=== PATIENT | male | born 1935 | race Caucasian/White ===

== ENCOUNTER 2018-05-28 11:27 | Emergency (ER) | payer OTHER, SELFPAY ==
[2018-05-28] VITALS (16 sets, daily range): BP systolic 90–169; BP diastolic 60–104; PULSE 72–110; RESP 15–22; TEMP 36.5; O2SAT 88–98; BMI 29.5
[2018-05-28 12:21] LABS: Add Manual Diff / Slide Review NO; Basophils Percent Auto 0.2 % (0-2); Eosinophils Percent Auto 0.1 % (2-4); Hemoglobin 14.4 g/dL (13.5-17.5); Lymphocytes Percent Auto 21.1 % (25-40); Mean Corpuscular HGB Conc 35.2 % (30-36); Mean Corpuscular Volume 79.6 fL (80-100); Neutrophils Absolute Auto 5000 /uL (3000-5900); Neutrophils Percent Auto 54.4 % (50-75); Platelet Count 165 X10^3/uL (150-400); Red Blood Cell Count 5.15 X10^6/uL (4.5-5.9); Red Cell Distribution Width 14.7 % (11.6-14.8); White Blood Cell Count 9.1 X10^3/uL (4.5-11.0)
[2018-05-28 12:24] LABS: Monocytes Percent Auto 24.2 % (3-14)
[2018-05-28] MEDS: PANTOPRAZOLE 40 MG VIAL IV (12:27)
[2018-05-28] MEDS: ONDANSETRON 4 MG/2 ML INJ IV (12:27)
[2018-05-28 12:28] LABS: INR 1.2 (0.9-1.3); Prothrombin Time 12.8 SECONDS (10.1-12.7)
[2018-05-28 12:31] LABS: PTT Partial Thromboplastin Tim 27 SECONDS (26.4-36.2)
[2018-05-28 12:32] LABS: Lactate (Lactic Acid) 2.4 mmol/L (0.7-2.1)
[2018-05-28 12:33] LABS: Alanine Aminotransferase 18 IU/L (21-72); Albumin 4.7 g/dL (3.5-5.0); Albumin Globulin Ratio 1.6 (1.0-2.8); Alkaline Phosphatase 52 U/L (38-126); Aspartate Aminotransferase 16 IU/L (17-59); Bilirubin Total 2.2 mg/dL (0.2-1.3); Blood Urea Nitrogen 35 mg/dL (9-20); Calcium 9.7 mg/dL (8.4-10.2); Carbon Dioxide 24 mmol/L (22-32); Chloride 107 mmol/L (98-107); Estimated Glomerular Filt Rate > 60.0 mL/min (>60); Glucose 111 mg/dL (80-110); HEMOLYSIS < 15 (0-50); Lipase 51 U/L (23-300); Sodium 148 mmol/L (137-145); Total Protein 7.7 g/dL (6.3-8.2)
--- NOTE | 2018-05-28 12:58 | ED.GIBLEED ---
HPI - GI Bleed General Chief complaint: GI Bleed Stated complaint: stomach issues Time Seen by Provider: 05/28/18 11:58 Source: patient Mode of arrival: ambulatory Limitations: no limitations History of Present Illness HPI Narrative: PATIENT IS A 82-YEAR-OLD MALE WHO PRESENTS WITH 2 EPISODES BLACK VOMITING. IT HAPPENED THIS MORNING. HE SAID HE THREW UP TWICE FOR ABOUT 30 MIN HE DID HAVE MULTIPLE EPISODES OF BLACK STOOL WELL. I SLIGHTLY TACHYCARDIC NO ABDOMINAL PAIN NO DIZZINESS LIGHTHEADEDNESS OR SHORTNESS OF BREATH. HE DOES TAKE AN ASPIRIN 81 MG DAILY. NO HISTORY OF GI BLEED. MD complaint: coffee ground emesis Related Data Home Medications Medication Instructions Recorded Confirmed aspirin 325 mg PO QPM 05/28/18 05/28/18 [id number] 1 tab PO PRN PRN 05/28/18 05/28/18 [Migraine Relief] atorvastatin 10 mg PO QPM 05/28/18 05/28/18 calcium carbonate [Tums] 200 mg PO PRN PRN 05/28/18 05/28/18 fluorouracil 1 applic TOPICAL [id number] 05/28/18 05/28/18 Allergies Allergy/AdvReac Type Severity Reaction Status Date / Time morphine AdvReac Verified 05/28/18 11:38 Review of Systems Review of Systems GENERAL: Denies chills, fatigue, malaise, fever, sweats, travel HEENT: Denies sinus pain, ear pain, sore throat, difficulty swallowing, neck pain RESPIRATORY: Denies dyspnea, cough, wheezing, hemoptysis, sputum. CARDIOVASCULAR: Denies chest pain, palpitations, orthopnea, edema GASTROINTESTINAL: See HPI : Denies dysuria, frequency, incontinence, hematuria, urinary retention, flank pain. MUSCULOSKELETAL: Denies weakness, joint pain, or bony pain SKIN: No rash, no erythema, no pruritus NEUROLOGIC: Denies weakness, dizziness, headache, numbness, change in speech, confusion PSYCHIATRIC: No concerning psychosocial issues. 12 point review of systems is negative except for those stated above and HPI [facility] Medical History Hyperlipidemia (Acute) Social History Smoking Status: Never smoker Exam Initial Vital Signs Initial Vital Signs: Vital Signs Temperature 97.7 F 05/28/18 11:38 Pulse Rate 102 H 11/26/18 11:38 Respiratory Rate 22 05/28/18 11:38 Blood Pressure 129/84 05/28/18 11:38 Pulse Oximetry 92 05/28/18 11:38 GENERAL: Well-appearing alert making jokes HEENT: Head atraumatic,EOMI, pupils reactive CARDIOVASCULAR: Regular rate and rhythm without murmurs, rubs or gallops. RESPIRATORY: Breath sounds equal bilaterally, no wheezes rales or rhonchi. ABDOMEN: Soft, nontender. Normoactive bowel sounds all 4 quadrants. No guarding or rebound. RECTAL: Black stool guaiac positive EXTREMITIES: Normal range of motion, no clubbing or edema. Neurovascularly intact NEUROLOGICAL: Alert and oriented x4.Normal gait and speech. Cranial nerves II through XII grossly intact. SKIN: Warm, dry, no laceration, no petechiae, no rashes or lesions. Course Orders Ordered: ED Orders 05/28/18 11:58 EKG-12 Lead Stat 05/28/18 12:10 Complete Blood Count AUTO DIFF Stat Comprehensive Metabolic Panel Stat Lactate (Lactic Acid) Stat Lipase Stat Partial Thromboplastin Time Stat Prothrombin Time INR Stat Type and Screen Stat 05/28/18 15:40 Urine Culture Stat Urine Microscopic Stat 05/28/18 15:43 Hemoglobin and Hematocrit Stat Lactate (Lactic Acid) Stat 05/28/18 17:04 EKG-12 Lead Stat Pantoprazole Sodium 80 mg/ (Sodium Chloride) 100 mls @ 10 mls/hr IV CONT YARY Last Infusion: 05/28/18 18:14 Dose: 8 mg/hr, 10 mls/hr Admin: 05/28/18 13:13 Dose: 8 mg/hr, 10 mls/hr Sodium Chloride (Normal Saline 0.9%) 1,000 mls @ 125 mls/hr IV CONT YARY Last Infusion: 05/28/18 18:14 Dose: 125 mls/hr Admin: 05/28/18 15:10 Dose: 125 mls/hr Discontinued Medications Hydromorphone HCl (Dilaudid) 0.5 mg IV NOW ONE Stop: 05/28/18 15:08 Last Admin: 05/28/18 15:11 Dose: 0.5 mg Hydromorphone HCl (Dilaudid) 0.5 mg IV NOW ONE Stop: 05/28/18 18:08 Last Admin: 11/26/18 18:07 Dose: 0.5 mg Ondansetron HCl (Zofran) 4 mg IV NOW ONE Stop: 05/28/18 11:59 Last Admin: 05/28/18 12:27 Dose: 4 mg Pantoprazole Sodium (Protonix) 40 mg IV NOW ONE Stop: 05/28/18 12:15 Last Admin: 05/28/18 12:27 Dose: 40 mg Vital Signs - 8 hr 05/28/18 11:38 05/28/18 12:30 05/28/18 13:00 Temperature 97.7 F Pulse Rate 102 H 98 H 107 H Respiratory Rate 22 17 18 Blood Pressure 129/84 Blood Pressure [Left Arm] 134/73 90/77 Pulse Oximetry 92 95 05/28/18 13:15 05/28/18 13:19 05/28/18 14:26 Temperature Pulse Rate 100 H 89 108 H Respiratory Rate 17 17 16 Blood Pressure Blood Pressure [Left Arm] 150/104 H 169/99 H 124/60 Pulse Oximetry 90 L 92 05/28/18 14:45 05/28/18 15:00 05/28/18 15:15 Temperature Pulse Rate 106 H 96 H 110 H Respiratory Rate 18 18 Blood Pressure Blood Pressure [Left Arm] 119/96 H 110/83 110/83 Pulse Oximetry 95 95 95 05/28/18 15:30 05/28/18 15:45 05/28/18 16:00 Temperature Pulse Rate 81 80 79 Respiratory Rate 18 15 Blood Pressure Blood Pressure [Left Arm] 140/81 124/80 125/73 Pulse Oximetry 95 95 95 05/28/18 16:30 05/28/18 16:53 05/28/18 16:57 Temperature Pulse Rate 80 72 Respiratory Rate 18 18 20 Blood Pressure Blood Pressure [Left Arm] 131/75 148/77 H Pulse Oximetry 94 92 94 05/28/18 17:40 Temperature Pulse Rate 84 Respiratory Rate 20 Blood Pressure Blood Pressure [Left Arm] 136/78 Pulse Oximetry 98 MDM - GI Bleed Lab Data Attestation: I reviewed the patient's lab results. Result diagrams: 05/28/18 15:43 05/28/18 12:10 Lab Results 05/28/18 05/28/18 05/28/18 Range/Units 12:10 12:10 12:10 WBC 9.1 (4.5-11.0) X10^3/uL RBC 5.15 (4.5-5.9) X10^6/uL Hgb 14.4 (13.5-17.5) g/dL Hct 41.0 (41-53) % MCV 79.6 L (80-100) fL MCH 28.0 (26-34) PG MCHC 35.2 (30-36) % RDW 14.7 (11.6-14.8) % Plt Count 165 (150-400) X10^3/uL Neut % (Auto) 54.4 (50-75) % Lymph % (Auto) 21.1 L (25-40) % [place] % (Auto) 24.2 H (3-14) % Eos % (Auto) 0.1 L (2-4) % Baso % (Auto) 0.2 (0-2) % Neut # (Auto) 5000 (0572-3808) /uL PT 12.8 H (10.1-12.7) SECONDS INR 1.2 (0.9-1.3) APTT 27 (26.4-36.2) SECONDS Sodium 148 H (137-145) mmol/L Potassium 4.0 (3.4-5.1) mmol/L Chloride 107 (98-107) mmol/L Carbon Dioxide 24 (22-32) mmol/L BUN 35 H (9-20) mg/dL Creatinine 1.00 (0.66-1.25) mg/dL Estimated GFR > 60.0 (>60) mL/min BUN/Creatinine Ratio 35.0 H (6-22) Glucose 111 H (80-110) mg/dL Lactate (0.7-2.1) mmol/L Calcium 9.7 (8.4-10.2) mg/dL Total Bilirubin 2.2 H (0.2-1.3) mg/dL AST 16 L (17-59) IU/L ALT 18 L (21-72) IU/L Alkaline Phosphatase 52 (38-126) U/L Total Protein 7.7 (6.3-8.2) g/dL Albumin 4.7 (3.5-5.0) g/dL Globulin 3.0 (1.7-4.1) g/dL Albumin/Globulin Ratio 1.6 (1.0-2.8) Lipase 51 (23-300) U/L Urine RBC (0-5/HPF) Urine WBC (0-5/HPF) Ur Squamous Epith Cells Urine Bacteria (None) Ur Culture Indicated? Micro UA Comment Blood Type Antibody Screen 05/28/18 05/28/18 05/28/18 Range/Units 12:10 12:10 15:40 WBC (4.5-11.0) X10^3/uL RBC (4.5-5.9) X10^6/uL Hgb (13.5-17.5) g/dL Hct (41-53) % MCV (80-100) fL MCH (26-34) PG MCHC (30-36) % RDW (11.6-14.8) % Plt Count (150-400) X10^3/uL Neut % (Auto) (50-75) % Lymph % (Auto) (25-40) % [place] % (Auto) (3-14) % Eos % (Auto) (2-4) % Baso % (Auto) (0-2) % Neut # (Auto) (8365-8126) /uL PT (10.1-12.7) SECONDS INR (0.9-1.3) APTT (26.4-36.2) SECONDS Sodium (137-145) mmol/L Potassium (3.4-5.1) mmol/L Chloride (98-107) mmol/L Carbon Dioxide (22-32) mmol/L BUN (9-20) mg/dL Creatinine (0.66-1.25) mg/dL Estimated GFR (>60) mL/min BUN/Creatinine Ratio (6-22) Glucose (80-110) mg/dL Lactate 2.4 H (0.7-2.1) mmol/L Calcium (8.4-10.2) mg/dL Total Bilirubin (0.2-1.3) mg/dL AST (17-59) IU/L ALT (21-72) IU/L Alkaline Phosphatase (38-126) U/L Total Protein (6.3-8.2) g/dL Albumin (3.5-5.0) g/dL Globulin (1.7-4.1) g/dL Albumin/Globulin Ratio (1.0-2.8) Lipase (23-300) U/L Urine RBC 0-1/hpf (0-5/HPF) Urine WBC 10-30/hpf H (0-5/HPF) Ur Squamous Epith Cells 1-5 /hpf Urine Bacteria Few (2-10) H (None) Ur Culture Indicated? Specimen cultured Micro UA Comment Not Reportable Blood Type B Positive Antibody Screen Negative 05/28/18 05/28/18 Range/Units 15:43 15:43 WBC (4.5-11.0) X10^3/uL RBC (4.5-5.9) X10^6/uL Hgb 13.8 (13.5-17.5) g/dL Hct 39.7 L (41-53) % MCV (80-100) fL MCH (26-34) PG MCHC (30-36) % RDW (11.6-14.8) % Plt Count (150-400) X10^3/uL Neut % (Auto) (50-75) % Lymph % (Auto) (25-40) % [place] % (Auto) (3-14) % Eos % (Auto) (2-4) % Baso % (Auto) (0-2) % Neut # (Auto) (1803-8081) /uL PT (10.1-12.7) SECONDS INR (0.9-1.3) APTT (26.4-36.2) SECONDS Sodium (137-145) mmol/L Potassium (3.4-5.1) mmol/L Chloride (98-107) mmol/L Carbon Dioxide (22-32) mmol/L BUN (9-20) mg/dL Creatinine (0.66-1.25) mg/dL Estimated GFR (>60) mL/min BUN/Creatinine Ratio (6-22) Glucose (80-110) mg/dL Lactate 2.9 H (0.7-2.1) mmol/L Calcium (8.4-10.2) mg/dL Total Bilirubin (0.2-1.3) mg/dL AST (17-59) IU/L ALT (21-72) IU/L Alkaline Phosphatase (38-126) U/L Total Protein (6.3-8.2) g/dL Albumin (3.5-5.0) g/dL Globulin (1.7-4.1) g/dL Albumin/Globulin Ratio (1.0-2.8) Lipase (23-300) U/L Urine RBC (0-5/HPF) Urine WBC (0-5/HPF) Ur Squamous Epith Cells Urine Bacteria (None) Ur Culture Indicated? Micro UA Comment Blood Type Antibody Screen Urine Dip Bedside Urine Glucose Negative Bedside Urine Bilirubin - Negative Bedside Urine Ketone - Negative Urine Specific [place] 1.015 Bedside Urine Occult Blood - Negative Bedside Urine pH 6.0 Bedside Urine Protein +/- 15 Bedside Urine Urobilinogen - Negative Bedside Urine Nitrite - Negative Bedside Urine Leukocytes ++ 125 Esterase ECG Data Attestation: I personally reviewed and interpreted this ECG as follows: MDM Narrative Medical decision making narrative: Patient has had no further episodes of GI bleeding while in the emergency department. He is getting quite restless stating that his lower back which is chronic ongoing problem for him is starting to hurt in the emergency room gurney. He is sitting up nurse feels that he is diaphoretic. His heart rate has increased he is now complaining of headache. His abdomen remained soft. He is given some Dilaudid to help with back pain and headache. Heart rate improved able to lay back down. He overall feeling a little bit better. I did discuss with [place] doctor montes who recommends patient go [facility] or [facility] I spoke with GI doctor at [facility] who request IV fluids. Dr. Funez internal medicine doctor who happily accepts patient for transfer. Repeat blood work shows very minimal a drop in hemoglobin and hematocrit. Slightly increase in lactic acid IV fluids have just been started. Patient laying down uncomfortable due to his back. He has had chronic ongoing back pain for a number of years. Dilaudid does seem to help. His heart rate has also improved since his pain is better. Is a his abdomen is reexamined and remains. Discharge Plan Departure Patient Disposition: Xfer Acute [facility] Prescriptions: No Action atorvastatin 10 mg Tablet 10 mg PO QPM RF: 0 aspirin 325 mg Tablet 325 mg PO QPM RF: 0 fluorouracil 5 % Cream 1 applic TOPICAL [id number] RF: 0 calcium carbonate [Tums] 200 mg calcium (500 mg) Tablet,Chewable 200 mg PO PRN PRN (Reason: Indigestion) RF: 0 [id number] [Migraine Relief] 250-250-65 mg Tablet 1 tab PO PRN PRN (Reason: Migraine Headache) RF: 0
--- NOTE | 2018-05-28 13:07 | ED_ITS ---
HPI - GI Bleed General Chief complaint: GI Bleed Stated complaint: stomach issues Time Seen by Provider: 05/28/18 11:58 Source: patient Mode of arrival: ambulatory Limitations: no limitations History of Present Illness HPI Narrative: PATIENT IS A 82-YEAR-OLD MALE WHO PRESENTS WITH 2 EPISODES BLACK VOMITING. IT HAPPENED THIS MORNING. HE SAID HE THREW UP TWICE FOR ABOUT 30 MIN HE DID HAVE MULTIPLE EPISODES OF BLACK STOOL WELL. I SLIGHTLY TACHYCARDIC NO ABDOMINAL PAIN NO DIZZINESS LIGHTHEADEDNESS OR SHORTNESS OF BREATH. HE DOES TAKE AN ASPIRIN 81 MG DAILY. NO HISTORY OF GI BLEED. MD complaint: coffee ground emesis Related Data Home Medications Medication Instructions Recorded Confirmed aspirin 325 mg PO QPM 05/28/18 05/28/18 [id number]-[id number] 1 tab PO PRN PRN 05/28/18 05/28/18 [Migraine Relief] atorvastatin 10 mg PO QPM 05/28/18 05/28/18 calcium carbonate [Tums] 200 mg PO PRN PRN 05/28/18 05/28/18 fluorouracil 1 applic TOPICAL [id number] 05/28/18 05/28/18 Allergies Allergy/AdvReac Type Severity Reaction Status Date / Time morphine AdvReac Verified 05/28/18 11:38 Review of Systems Review of Systems GENERAL: Denies chills, fatigue, malaise, fever, sweats, travel HEENT: Denies sinus pain, ear pain, sore throat, difficulty swallowing, neck pain RESPIRATORY: Denies dyspnea, cough, wheezing, hemoptysis, sputum. CARDIOVASCULAR: Denies chest pain, palpitations, orthopnea, edema GASTROINTESTINAL: See HPI : Denies dysuria, frequency, incontinence, hematuria, urinary retention, flank pain. MUSCULOSKELETAL: Denies weakness, joint pain, or bony pain SKIN: No rash, no erythema, no pruritus NEUROLOGIC: Denies weakness, dizziness, headache, numbness, change in speech, confusion PSYCHIATRIC: No concerning psychosocial issues. 12 point review of systems is negative except for those stated above and HPI [facility] Medical History Hyperlipidemia (Acute) Social History Smoking Status: Never smoker Exam Initial Vital Signs Initial Vital Signs: Vital Signs Temperature 97.7 F 05/28/18 11:38 Pulse Rate 102 H 11/26/18 11:38 Respiratory Rate 22 05/28/18 11:38 Blood Pressure 129/84 05/28/18 11:38 Pulse Oximetry 92 05/28/18 11:38 GENERAL: Well-appearing alert making jokes HEENT: Head atraumatic,EOMI, pupils reactive CARDIOVASCULAR: Regular rate and rhythm without murmurs, rubs or gallops. RESPIRATORY: Breath sounds equal bilaterally, no wheezes rales or rhonchi. ABDOMEN: Soft, nontender. Normoactive bowel sounds all 4 quadrants. No guarding or rebound. RECTAL: Black stool guaiac positive EXTREMITIES: Normal range of motion, no clubbing or edema. Neurovascularly intact NEUROLOGICAL: Alert and oriented x4.Normal gait and speech. Cranial nerves II through XII grossly intact. SKIN: Warm, dry, no laceration, no petechiae, no rashes or lesions. Course Orders Ordered: ED Orders 05/28/18 11:58 EKG-12 Lead Stat 05/28/18 12:10 Complete Blood Count AUTO DIFF Stat Comprehensive Metabolic Panel Stat Lactate (Lactic Acid) Stat Lipase Stat Partial Thromboplastin Time Stat Prothrombin Time INR Stat Type and Screen Stat 05/28/18 15:40 Urine Culture Stat Urine Microscopic Stat 05/28/18 15:43 Hemoglobin and Hematocrit Stat Lactate (Lactic Acid) Stat 05/28/18 17:04 EKG-12 Lead Stat Pantoprazole Sodium 80 mg/ (Sodium Chloride) 100 mls @ 10 mls/hr IV CONT YARY Last Infusion: 05/28/18 18:14 Dose: 8 mg/hr, 10 mls/hr Admin: 05/28/18 13:13 Dose: 8 mg/hr, 10 mls/hr Sodium Chloride (Normal Saline 0.9%) 1,000 mls @ 125 mls/hr IV CONT YARY Last Infusion: 05/28/18 18:14 Dose: 125 mls/hr Admin: 05/28/18 15:10 Dose: 125 mls/hr Discontinued Medications Hydromorphone HCl (Dilaudid) 0.5 mg IV NOW ONE Stop: 05/28/18 15:08 Last Admin: 05/28/18 15:11 Dose: 0.5 mg Hydromorphone HCl (Dilaudid) 0.5 mg IV NOW ONE Stop: 05/28/18 18:08 Last Admin: 11/26/18 18:07 Dose: 0.5 mg Ondansetron HCl (Zofran) 4 mg IV NOW ONE Stop: 05/28/18 11:59 Last Admin: 05/28/18 12:27 Dose: 4 mg Pantoprazole Sodium (Protonix) 40 mg IV NOW ONE Stop: 05/28/18 12:15 Last Admin: 05/28/18 12:27 Dose: 40 mg Vital Signs - 8 hr 05/28/18 11:38 05/28/18 12:30 05/28/18 13:00 Temperature 97.7 F Pulse Rate 102 H 98 H 107 H Respiratory Rate 22 17 18 Blood Pressure 129/84 Blood Pressure [Left Arm] 134/73 90/77 Pulse Oximetry 92 95 05/28/18 13:15 05/28/18 13:19 05/28/18 14:26 Temperature Pulse Rate 100 H 89 108 H Respiratory Rate 17 17 16 Blood Pressure Blood Pressure [Left Arm] 150/104 H 169/99 H 124/60 Pulse Oximetry 90 L 92 05/28/18 14:45 05/28/18 15:00 05/28/18 15:15 Temperature Pulse Rate 106 H 96 H 110 H Respiratory Rate 18 18 Blood Pressure Blood Pressure [Left Arm] 119/96 H 110/83 110/83 Pulse Oximetry 95 95 95 05/28/18 15:30 05/28/18 15:45 05/28/18 16:00 Temperature Pulse Rate 81 80 79 Respiratory Rate 18 15 Blood Pressure Blood Pressure [Left Arm] 140/81 124/80 125/73 Pulse Oximetry 95 95 95 05/28/18 16:30 05/28/18 16:53 05/28/18 16:57 Temperature Pulse Rate 80 72 Respiratory Rate 18 18 20 Blood Pressure Blood Pressure [Left Arm] 131/75 148/77 H Pulse Oximetry 94 92 94 05/28/18 17:40 Temperature Pulse Rate 84 Respiratory Rate 20 Blood Pressure Blood Pressure [Left Arm] 136/78 Pulse Oximetry 98 MDM - GI Bleed Lab Data Attestation: I reviewed the patient's lab results. Result diagrams: 05/28/18 15:43 05/28/18 12:10 Lab Results 05/28/18 05/28/18 05/28/18 Range/Units 12:10 12:10 12:10 WBC 9.1 (4.5-11.0) X10^3/uL RBC 5.15 (4.5-5.9) X10^6/uL Hgb 14.4 (13.5-17.5) g/dL Hct 41.0 (41-53) % MCV 79.6 L (80-100) fL MCH 28.0 (26-34) PG MCHC 35.2 (30-36) % RDW 14.7 (11.6-14.8) % Plt Count 165 (150-400) X10^3/uL Neut % (Auto) 54.4 (50-75) % Lymph % (Auto) 21.1 L (25-40) % [place] % (Auto) 24.2 H (3-14) % Eos % (Auto) 0.1 L (2-4) % Baso % (Auto) 0.2 (0-2) % Neut # (Auto) 5000 (7275-7634) /uL PT 12.8 H (10.1-12.7) SECONDS INR 1.2 (0.9-1.3) APTT 27 (26.4-36.2) SECONDS Sodium 148 H (137-145) mmol/L Potassium 4.0 (3.4-5.1) mmol/L Chloride 107 (98-107) mmol/L Carbon Dioxide 24 (22-32) mmol/L BUN 35 H (9-20) mg/dL Creatinine 1.00 (0.66-1.25) mg/dL Estimated GFR > 60.0 (>60) mL/min BUN/Creatinine Ratio 35.0 H (6-22) Glucose 111 H (80-110) mg/dL Lactate (0.7-2.1) mmol/L Calcium 9.7 (8.4-10.2) mg/dL Total Bilirubin 2.2 H (0.2-1.3) mg/dL AST 16 L (17-59) IU/L ALT 18 L (21-72) IU/L Alkaline Phosphatase 52 (38-126) U/L Total Protein 7.7 (6.3-8.2) g/dL Albumin 4.7 (3.5-5.0) g/dL Globulin 3.0 (1.7-4.1) g/dL Albumin/Globulin Ratio 1.6 (1.0-2.8) Lipase 51 (23-300) U/L Urine RBC (0-5/HPF) Urine WBC (0-5/HPF) Ur Squamous Epith Cells Urine Bacteria (None) Ur Culture Indicated? Micro UA Comment Blood Type Antibody Screen 05/28/18 05/28/18 05/28/18 Range/Units 12:10 12:10 15:40 WBC (4.5-11.0) X10^3/uL RBC (4.5-5.9) X10^6/uL Hgb (13.5-17.5) g/dL Hct (41-53) % MCV (80-100) fL MCH (26-34) PG MCHC (30-36) % RDW (11.6-14.8) % Plt Count (150-400) X10^3/uL Neut % (Auto) (50-75) % Lymph % (Auto) (25-40) % [place] % (Auto) (3-14) % Eos % (Auto) (2-4) % Baso % (Auto) (0-2) % Neut # (Auto) (9048-0238) /uL PT (10.1-12.7) SECONDS INR (0.9-1.3) APTT (26.4-36.2) SECONDS Sodium (137-145) mmol/L Potassium (3.4-5.1) mmol/L Chloride (98-107) mmol/L Carbon Dioxide (22-32) mmol/L BUN (9-20) mg/dL Creatinine (0.66-1.25) mg/dL Estimated GFR (>60) mL/min BUN/Creatinine Ratio (6-22) Glucose (80-110) mg/dL Lactate 2.4 H (0.7-2.1) mmol/L Calcium (8.4-10.2) mg/dL Total Bilirubin (0.2-1.3) mg/dL AST (17-59) IU/L ALT (21-72) IU/L Alkaline Phosphatase (38-126) U/L Total Protein (6.3-8.2) g/dL Albumin (3.5-5.0) g/dL Globulin (1.7-4.1) g/dL Albumin/Globulin Ratio (1.0-2.8) Lipase (23-300) U/L Urine RBC 0-1/hpf (0-5/HPF) Urine WBC 10-30/hpf H (0-5/HPF) Ur Squamous Epith Cells 1-5 /hpf Urine Bacteria Few (2-10) H (None) Ur Culture Indicated? Specimen cultured Micro UA Comment Not Reportable Blood Type B Positive Antibody Screen Negative 05/28/18 05/28/18 Range/Units 15:43 15:43 WBC (4.5-11.0) X10^3/uL RBC (4.5-5.9) X10^6/uL Hgb 13.8 (13.5-17.5) g/dL Hct 39.7 L (41-53) % MCV (80-100) fL MCH (26-34) PG MCHC (30-36) % RDW (11.6-14.8) % Plt Count (150-400) X10^3/uL Neut % (Auto) (50-75) % Lymph % (Auto) (25-40) % [place] % (Auto) (3-14) % Eos % (Auto) (2-4) % Baso % (Auto) (0-2) % Neut # (Auto) (2496-3626) /uL PT (10.1-12.7) SECONDS INR (0.9-1.3) APTT (26.4-36.2) SECONDS Sodium (137-145) mmol/L Potassium (3.4-5.1) mmol/L Chloride (98-107) mmol/L Carbon Dioxide (22-32) mmol/L BUN (9-20) mg/dL Creatinine (0.66-1.25) mg/dL Estimated GFR (>60) mL/min BUN/Creatinine Ratio (6-22) Glucose (80-110) mg/dL Lactate 2.9 H (0.7-2.1) mmol/L Calcium (8.4-10.2) mg/dL Total Bilirubin (0.2-1.3) mg/dL AST (17-59) IU/L ALT (21-72) IU/L Alkaline Phosphatase (38-126) U/L Total Protein (6.3-8.2) g/dL Albumin (3.5-5.0) g/dL Globulin (1.7-4.1) g/dL Albumin/Globulin Ratio (1.0-2.8) Lipase (23-300) U/L Urine RBC (0-5/HPF) Urine WBC (0-5/HPF) Ur Squamous Epith Cells Urine Bacteria (None) Ur Culture Indicated? Micro UA Comment Blood Type Antibody Screen Urine Dip Bedside Urine Glucose Negative Bedside Urine Bilirubin - Negative Bedside Urine Ketone - Negative Urine Specific [place] 1.015 Bedside Urine Occult Blood - Negative Bedside Urine pH 6.0 Bedside Urine Protein +/- 15 Bedside Urine Urobilinogen - Negative Bedside Urine Nitrite - Negative Bedside Urine Leukocytes ++ 125 Esterase ECG Data Attestation: I personally reviewed and interpreted this ECG as follows: MDM Narrative Medical decision making narrative: Patient has had no further episodes of GI bleeding while in the emergency department. He is getting quite restless stating that his lower back which is chronic ongoing problem for him is starting to hurt in the emergency room gurney. He is sitting up nurse feels that he is diaphoretic. His heart rate has increased he is now complaining of headache. His abdomen remained soft. He is given some Dilaudid to help with back pain and headache. Heart rate improved able to lay back down. He overall feeling a little bit better. I did discuss with [place] doctor montes who recommends patient go [facility] or [facility] I spoke with GI doctor at [facility] who request IV fluids. Dr. Funez internal medicine doctor who happily accepts patient for transfer. Repeat blood work shows very minimal a drop in hemoglobin and hematocrit. Slightly increase in lactic acid IV fluids have just been started. Patient laying down uncomfortable due to his back. He has had chronic ongoing back pain for a number of years. Dilaudid does seem to help. His heart rate has also improved since his pain is better. Is a his abdomen is reexamined and remains. Discharge Plan Departure Patient Disposition: Xfer Acute [facility] Prescriptions: No Action atorvastatin 10 mg Tablet 10 mg PO QPM RF: 0 aspirin 325 mg Tablet 325 mg PO QPM RF: 0 fluorouracil 5 % Cream 1 applic TOPICAL [id number] RF: 0 calcium carbonate [Tums] 200 mg calcium (500 mg) Tablet,Chewable 200 mg PO PRN PRN (Reason: Indigestion) RF: 0 [id number]-tehpcicaukhbe-[id number] [Migraine Relief] 250-250-65 mg Tablet 1 tab PO PRN PRN (Reason: Migraine Headache) RF: 0
[2018-05-28] MEDS: PANTOPRAZOLE 80 MG in SODIUM CHLORIDE 0.9% 100 ML 10 ML IV (13:13)
[2018-05-28] MEDS: SODIUM CHLORIDE 0.9% 1,000 ML 125 ML IV (15:10)
[2018-05-28] MEDS: HYDROMORPHONE 1 MG INJ 0.5 MG IV ×2 (15:11→18:07)
--- NOTE | 2018-05-28 15:22 | PC.NURSE ---
Pt w/ noted increased HR to 118. No hypotension. C/O dizzyness. + Migraine. Medicated w/ dilaudid 0.5 mg IVP. NS started at 125 cc/ hour. MD in to evaluate. Ice pack to head for comfort.
[2018-05-28 15:48] LABS: Hematocrit 39.7 % (41-53); Hemoglobin 13.8 g/dL (13.5-17.5)
[2018-05-28 16:00] LABS: Lactate (Lactic Acid) 2.9 mmol/L (0.7-2.1)
[2018-05-28 16:17] LABS: Reflexed Lactate in 2 Hours Y
[2018-05-28 16:18] LABS: Bacteria Urine Few (2-10); Culture Indicated Urine Specimen Cultured; RBC Urine 0-1/HPF (0-5/HPF); Squamous Epithelial Cell Urine 1-5 /HPF; WBC Urine 10-30/HPF (0-5/HPF)
--- NOTE | 2018-05-28 17:04 | PC.NURSE ---
Pt guac positive rectally per Dr. Whitley.
--- NOTE | 2018-05-28 17:04 | PC.NURSE ---
Pt's heart rate decreased to 70s w/ multi focal PVCs noted. Repeat EKG obtained. Dr. Whitley in to re-evaluate as pt is now more diaphoretic, c/o increased pain in back and requiring oxygen for keep sat > 93%.
--- NOTE | 2018-05-28 17:18 | PC.NURSE ---
Pt noted to be sleeping, have apnea spell, sat dropped to 84%, oxygen 4l nc restarted.
[2018-05-28 19:47] LABS: Reflexed Lactate in 2 Hours Y
== END 2018-05-28 19:09 | disposition short-term general hospital (02) ==
PROVIDERS: Emergency Provider Emergency Medicine
DX: K92.2 Gastrointestinal hemorrhage, unspecified (principal)
CPT/HCPCS: 36415; 36591; 80053; 81003; 81015; 83605; 83690; 85014; 85018; 85025; 85610; 85730; 86850; 86900; 86901; 87086; 93005; 96365; 96366; 96375; 96376; 99285; C9113; J1170; J2405

== ENCOUNTER → 2018-08-01 08:47 | Outpatient (CLI) | payer OTHER, SELFPAY ==
[2018-08-01 09:41] LABS: Cholesterol 78 mg/dL (140-199); HDL Cholesterol 33 mg/dL (40-60); LDL Cholesterol Calculated 32 mg/dL (<100); Triglycerides 63 mg/dL (35-150)
== END ==
DX: E78.5 Hyperlipidemia, unspecified (principal)
CPT/HCPCS: 36415; 80061

== ENCOUNTER 2019-03-07 13:59 | Emergency (ER) | payer OTHER, SELFPAY ==
[2019-03-07 14:08] VITALS: BP 188/79; PULSE 72; RESP 18; TEMP 36.9; O2SAT 97; BMI 28.2
--- NOTE | 2019-03-07 14:30 | ED_ITS ---
HPI - Syncope <CARMINA Hernandez - Last Filed: 03/07/19 21:14> General Chief Complaint: Syncope Stated Complaint: Fell and hit head won't stop bleeding, dizzy Time Seen by Provider: 03/07/19 14:15 Source: patient Mode of arrival: ambulatory Limitations: no limitations History of Present Illness HPI narrative: 83-year-old male with a history of high blood pressure, hypertension, and brainstem stroke 2 years ago, presents emergency department today complaining of hitting his head yesterday after passing out. He states that was sitting on the toilet and felt dizzy and ?goofy ?the next thing he remembers he was waking up on the floor. His states he hit his forehead on the sink and found him on the floor. He placed gauze and a bandage on the area and was not evaluated yesterday. Today he stated that he went to take gives cap off in the bleeding and occurred again, so he presented to the emergency department for control of bleeding of his laceration. He denies any symptoms at this time. He also states he has not been taking his high blood pressure medication case he states his ?poison?. Patient denies headaches, change in vision, dizziness, chest pain, shortness of breath, fevers, cough, weakness, abdominal pain, vomiting, diarrhea, constipation, dysuria, or leg weakness. Patient also states that he is taking aspirin but denies any other blood thinners. Additionally he reports a cervical neck pain and a small laceration to his right elbow without pain. He denies hip pain, shoulder pain, elbow pain, knee pain, foot pain. A modified trauma was called. Related Data Home Medications Medication Instructions Recorded Confirmed aspirin 325 mg PO QPM 05/28/18 05/28/18 [id number] 1 tab PO PRN PRN 05/28/18 05/28/18 [Migraine Relief] atorvastatin 10 mg PO QPM 05/28/18 05/28/18 calcium carbonate [Tums] 200 mg PO PRN PRN 05/28/18 05/28/18 fluorouracil 1 applic TOPICAL [id number] 05/28/18 05/28/18 Allergies Allergy/AdvReac Type Severity Reaction Status Date / Time morphine AdvReac Verified 03/07/19 14:14 Review of Systems <CARMINA Hernandez - Last Filed: 03/07/19 21:14> Review of Systems Narrative: REVIEW OF SYSTEMS: GENERAL: Denies fever, chills, malaise, or wt. loss. HENT: Complains of head trauma, see HPI. Denies hearing loss, rhinorrhea, epistaxis, sinus pressure, sore throat, or dysphagia. EYES: No loss of vision, double vision, eye pain, or irritation. CARDIOVASCULAR: No chest pain, palpitations, edema, syncope, or orthopnea. RESPIRATORY: No shortness of breath, cough, or wheeze. GASTROINTESTINAL: No change in appetite, nausea, vomiting, stool changes, or melena. GENITOURINARY: No flank pain, urinary incontinence, hesitancy, frequency, or dysuria. MUSCULOSKELETAL: No pain, weakness, or deformities. INTEGUMENTARY: Complains of head laceration, see HPI. NEURO: Complains of syncope, see HPI. No numbness, tingling, memory loss, confusion, or headaches. PSYCH: No behavior or mood changes. LYMPHATIC: No lymphadenopathy. PFSH <CARMINA Hernandez - Last Filed: 03/07/19 21:14> Medical History CVA (cerebral vascular accident) (Acute) Hyperlipidemia (Acute) Social History Smoking Status: Never smoker Social History Smoking Status: Never smoker Exam <CARMINA Hernandez - Last Filed: 03/07/19 21:14> Initial Vital Signs Initial Vital Signs: Vital Signs Temperature 98.4 F 03/07/19 14:08 Pulse Rate 72 03/07/19 14:08 Respiratory Rate 18 03/07/19 14:08 Blood Pressure 188/79 H 03/07/19 14:08 Pulse Oximetry 97 03/07/19 14:08 PHYSICAL EXAMINATION: GENERAL: Well groomed, alert, and cooperative. Answers questions promptly and appropriately. Vital signs noted. HENT: 8 cm x 6 cm hematoma noted to forehead with a 4cm x 3cm significant abrasion bleeding controlled since last night with gauze (clots present in the area, no surrounding erythema, wound bed irrigated with normal saline). Ear canals patent, Oral mucosa is pink and moist, no caries or lesions present. Pharynx without erythema. EYES: PERRLA, EOMIs, conjunctiva pink, sclera white, no periorbital swelling. NECK: Slight tenderness to cervical spine upon palpation no bruising or step- offs noted. CHEST: Normal to inspection and without deformities. CARDIOVASCULAR: S1 and S2 sounds normal. Regular rate and rhythm, no murmurs, clicks, or bruits. No pedal edema. RESPIRATORY: Normal respiratory rate, trachea midline, airway patent. No stridor, nasal flaring or accessory muscle use. Lungs are clear in all gallegos without wheeze, rhonchi, or crackles. GASTROINTESTINAL: Bowel sounds normoactive. Abdomen is soft and non-tender. No organomegaly. MUSCULOSKELETAL: Normal gait and coordination. Equal tone and mass bilaterally. No thoracic or lumbar spinal tenderness or deformities. EXTREMITIES: CMS intact. Full range of motion and 5/5 strength to upper and lower extremities. 2cm abrasion noted to right elbow, bleeding controlled. SKIN: Warm, dry, soft, appropriate color for ethnicity. NEURO: Alert and Oriented X 3. CN III-XII intact. Good coordination. No ataxia, or sensory deficits, or cognitive issues. NIH Score of 0. PSYCH: Appropriate affect and mood. <Laurita Luevano DO - Last Filed: 03/08/19 08:06> Initial Vital Signs Initial Vital Signs: Vital Signs Temperature 98.4 F 03/07/19 14:08 Pulse Rate 72 03/07/19 14:08 Respiratory Rate 18 03/07/19 14:08 Blood Pressure 188/79 H 03/07/19 14:08 Pulse Oximetry 97 03/07/19 14:08 Course <CARMINA Hernandez - Last Filed: 03/07/19 21:14> Course Course Narrative: Initially patient did not complain of any neck tenderness in triage per nurses, however on exam he complained of cervical neck tenderness palpation. A C-collar was placed on patient and cervical and head CT scans were ordered. After obtained on unremarkable labs and negative CT scans, patient stated he wants to go home and does not want to be further evaluated. His wound was cleansed with normal saline and it appeared to be abraded, there is nothing to suture or staple, clots performed within the wound very minimal bleeding occurred during irrigation. Orders Ordered: Discontinued Medications Bacitracin (Bacitracin) 1 applic TOP NOW ONE Stop: 03/07/19 15:52 Last Admin: 03/07/19 16:08 Dose: 1 applic Documented by: BTONER Sodium Chloride (Normal Saline 0.9%) 1,000 mls @ 1,000 mls/hr IV BOLUS ONE Stop: 03/07/19 15:27 Last Admin: 03/07/19 15:25 Dose: Not Given Documented by: DARLENE Neomycin/Polymyxin/Bacitracin (Neosporin) 1 each TOP NOW ONE Stop: 03/07/19 15:50 Last Admin: 03/07/19 16:23 Dose: Not Given Documented by: DARLENE Consultations Consultation #1: Patient was staffed with Dr. Luevano. Vital Signs Vital signs: Vital Signs - 8 hr 03/07/19 14:08 03/07/19 15:58 Temperature 98.4 F Pulse Rate 72 68 Respiratory Rate 18 24 Blood Pressure 188/79 H Blood Pressure [Left Arm] 172/98 H Pulse Oximetry 97 100 <Laurita Luevano DO - Last Filed: 03/08/19 08:06> Orders Ordered: Discontinued Medications Bacitracin (Bacitracin) 1 applic TOP NOW ONE Stop: 03/07/19 15:52 Last Admin: 03/07/19 16:08 Dose: 1 applic Documented by: BTONER Sodium Chloride (Normal Saline 0.9%) 1,000 mls @ 1,000 mls/hr IV BOLUS ONE Stop: 03/07/19 15:27 Last Admin: 03/07/19 15:25 Dose: Not Given Documented by: DARLENE Neomycin/Polymyxin/Bacitracin (Neosporin) 1 each TOP NOW ONE Stop: 03/07/19 15:50 Last Admin: 03/07/19 16:23 Dose: Not Given Documented by: DARLENE Vital Signs Vital signs: Vital Signs - 8 hr 03/07/19 14:08 03/07/19 15:58 Temperature 98.4 F Pulse Rate 72 68 Respiratory Rate 18 24 Blood Pressure 188/79 H Blood Pressure [Left Arm] 172/98 H Pulse Oximetry 97 100 MDM - Syncope <CARMINA Hernandez - Last Filed: 03/07/19 21:14> Medical Records Attestation: I reviewed the patient's medical records. Lab Data Attestation: I reviewed the patient's lab results. Result diagrams: 03/07/19 14:20 03/07/19 14:20 Labs: Lab Results 03/07/19 03/07/19 03/07/19 Range/Units 14:20 14:20 14:20 WBC 6.3 (4.5-11.0) X10^3/uL RBC 5.22 (4.5-5.9) X10^6/uL Hgb 14.7 (13.5-17.5) g/dL Hct 41.7 (41-53) % MCV 79.8 L (80-100) fL MCH 28.2 (26-34) PG MCHC 35.3 (30-36) % RDW 14.1 (11.6-14.8) % Plt Count 125 L (150-400) X10^3/uL Neut % (Auto) Not Reportable Lymph % (Auto) Not Reportable [place] % (Auto) Not Reportable Eos % (Auto) Not Reportable Baso % (Auto) Not Reportable Lymph # (Auto) Not Reportable [place] # (Auto) Not Reportable Baso # (Auto) Not Reportable Total Counted 100 Seg Neutrophils % 44.0 (38-70) % Lymphocytes % (Manual) 28.0 (25-45) % Monocytes % (Manual) 26.0 H (2-11) % Eosinophils % (Manual) 1.0 L (2-4) % Basophils % (Manual) 1.0 (0-1) % Neutrophils # (Manual) 2772 L (1240-4730) /uL RBC Morphology Normal morphology PT 12.6 (10.1-12.7) SECONDS INR 1.1 (0.9-1.3) Sodium 141 (137-145) mmol/L Potassium 3.7 (3.4-5.1) mmol/L Chloride 105 (98-107) mmol/L Carbon Dioxide 25 (22-32) mmol/L BUN 11 (9-20) mg/dL Creatinine 1.10 (0.66-1.25) mg/dL Estimated GFR > 60.0 (>60) mL/min BUN/Creatinine Ratio 10.0 (6-22) Glucose 108 (80-110) mg/dL Calcium 9.4 (8.4-10.2) mg/dL Total Bilirubin 1.5 H (0.2-1.3) mg/dL AST 17 (17-59) IU/L ALT 12 L (21-72) IU/L Alkaline Phosphatase 63 (38-126) U/L Total Creatine Kinase 33 L (55-170) U/L CK-MB (CK-2) TNP CK-MB (CK-2) Rel Index TNP Troponin I < 0.012 (0.01-0.034) ng/mL Total Protein 7.4 (6.3-8.2) g/dL Albumin 4.4 (3.5-5.0) g/dL Globulin 3.0 (1.7-4.1) g/dL Albumin/Globulin Ratio 1.5 (1.0-2.8) Imaging Data Head CT: Radiologist's impression: [address] [address] [address] Scan Report Signed Patient: Jayy Beckman KMR#: [id number] : 8Acct:[id number] Age/Sex: 83 / MDate of Service: 03/07/19 Loc: ED Accession Number: [id number] Procedure: CT head/brain wo con Ordering Provider: Tali Olivera PROCEDURE: CT HEAD/BRAIN WO CON INDICATIONS: syncope, head lac TECHNIQUE: Noncontrast 4.5 mm thick angled axial sections acquired from the foramen magnum to the vertex, with coronal and sagittal reformats. For radiation dose reduction, the following was used: automated exposure control, adjustment of mA and/or kV according to patient size. COMPARISON: [facility], CT, CT BRAIN WO CON, 01/12/2017, 13:18. FINDINGS: Image quality: Excellent. CSF spaces: Basal cisterns are patent. No extra-axial fluid collections. The ventricles are symmetric in size and shape. Brain: No intracranial bleeds or masses. There is cerebral volume loss for age, with resultant ventricular and sulcal prominence. There are periventricular and deep white matter chronic small vessel ischemic changes. There is intracranial internal carotid artery and vertebral artery atherosclerosis. Skull and face: Calvarium and visualized facial bones appear intact, without suspicious lesions. Frontal scalp laceration noted. Sinuses: Visualized sinuses and mastoids are clear. IMPRESSION: No acute intracranial disease process. Dictated by: Lia Maciel MD, PhD on 03/07/2019 at 14:42 Approved by: Lia Maciel MD, PhD on 03/07/2019 at 14:[address]: Radiologist's impression: [address] [address] [address] Scan Report Signed Patient: Jayy Beckman KMR#: [id number] : 8Acct:[id number] Age/Sex: 83 / MDate of Service: 03/07/19 Loc: ED Accession Number: [id number] Procedure: CT cervical spine wo con Ordering Provider: Tali Olivera PROCEDURE: CT CERVICAL SPINE WO CON INDICATIONS: neck pain post syncope and head injury TECHNIQUE: Noncontrast 3 mm thick sections acquired from the skull base to the T4 level. Sagittal and coronal reformats were then constructed. For radiation dose reduction, the following was used: automated exposure control, adjustment of mA and/or kV according to patient size. COMPARISON: None. FINDINGS: Image quality: Excellent. Bones: No fractures or dislocations there is moderately severe degenerative disc disease from C4-C7. No traumatic subluxation is seen, facet degeneration is mild in severity over these areas.. Visualized superior ribs are intact. Soft tissues: Prevertebral soft tissues are normal in thickness. No paravertebral hematomas. No apical pneumothoraces. IMPRESSION: Moderately severe degenerative disc disease from C4-C7 but facet osteoarthritis appears quite mild through these areas in contrast. No fracture or traumatic subluxation is seen. Dictated by: Rachid Ramirez M.D. on 03/07/2019 at 14:51 Approved by: Rachid Ramirez M.D. on 03/07/2019 at 14:52 ECG Data Interpretation: Sinus rhythm with first-degree AV block, 1 PVC noted. Rate 74, MT interval 251, QTC 406. No ST elevation or ST depression, no T-wave them normally. EKG was also viewed by Dr. Luevano. [facility] Narrative Medical decision making narrative: Differential includes vagal episode (patient was sitting on the toilet as occurred, patient reports he has a few episodes of syncope due to his past stroke), cardiac etiology (less likely due to unremarkable EKG, negative troponins, lack of symptoms such as chest pain), CVA (less likely due to lack of symptoms, NIH score of 0, negative CT). Patient refused further workup or admission and stated he wanted to go home. Laceration was not able to be sutured or stapled, wound was irrigated extensively with normal saline, bandage was applied. Strict return precautions given and follow- up instructions discussed. <Laurita Tila Luevano, DO - Last Filed: 03/08/19 08:06> Lab Data Labs: Lab Results 03/07/19 03/07/19 03/07/19 Range/Units 14:20 14:20 14:20 WBC 6.3 (4.5-11.0) X10^3/uL RBC 5.22 (4.5-5.9) X10^6/uL Hgb 14.7 (13.5-17.5) g/dL Hct 41.7 (41-53) % MCV 79.8 L (80-100) fL MCH 28.2 (26-34) PG MCHC 35.3 (30-36) % RDW 14.1 (11.6-14.8) % Plt Count 125 L (150-400) X10^3/uL Neut % (Auto) Not Reportable Lymph % (Auto) Not Reportable [place] % (Auto) Not Reportable Eos % (Auto) Not Reportable Baso % (Auto) Not Reportable Lymph # (Auto) Not Reportable [place] # (Auto) Not Reportable Baso # (Auto) Not Reportable Total Counted 100 Seg Neutrophils % 44.0 (38-70) % Lymphocytes % (Manual) 28.0 (25-45) % Monocytes % (Manual) 26.0 H (2-11) % Eosinophils % (Manual) 1.0 L (2-4) % Basophils % (Manual) 1.0 (0-1) % Neutrophils # (Manual) 2772 L (9732-6262) /uL RBC Morphology Normal morphology PT 12.6 (10.1-12.7) SECONDS INR 1.1 (0.9-1.3) Sodium 141 (137-145) mmol/L Potassium 3.7 (3.4-5.1) mmol/L Chloride 105 (98-107) mmol/L Carbon Dioxide 25 (22-32) mmol/L BUN 11 (9-20) mg/dL Creatinine 1.10 (0.66-1.25) mg/dL Estimated GFR > 60.0 (>60) mL/min BUN/Creatinine Ratio 10.0 (6-22) Glucose 108 (80-110) mg/dL Calcium 9.4 (8.4-10.2) mg/dL Total Bilirubin 1.5 H (0.2-1.3) mg/dL AST 17 (17-59) IU/L ALT 12 L (21-72) IU/L Alkaline Phosphatase 63 (38-126) U/L Total Creatine Kinase 33 L (55-170) U/L CK-MB (CK-2) TNP CK-MB (CK-2) Rel Index TNP Troponin I < 0.012 (0.01-0.034) ng/mL Total Protein 7.4 (6.3-8.2) g/dL Albumin 4.4 (3.5-5.0) g/dL Globulin 3.0 (1.7-4.1) g/dL Albumin/Globulin Ratio 1.5 (1.0-2.8) MDM Narrative Medical decision making narrative: Case staffed with myself, work up for syncope is negative. Patient imaging does not show acute change. Patient laceration is 24 hours old and not able to be closed second to swelling/location. Discharge Plan Departure Patient Disposition: Home Clinical Impression: Closed head injury Qualifiers: Encounter type: initial encounter Qualified Code(s): S09.90XA - Unspecified injury of head, initial encounter Abrasion head Qualifiers: Encounter type: initial encounter Qualified Code(s): S00.91XA - Abrasion of unspecified part of head, initial encounter Discharge Date/Time: 03/07/19 16:24 Instructions: DI for Syncope in Adults (Fainting) Activity Restrictions/Additional Instructions: Thank you for entrusting me with your care today. As discussed, your lab work was negative for any concerning findings, your head CT and neck CT were negative for fractures. Your wound was dressed with a special dressing, please leave this in place for 48 hours. After that, you may clean the area which and freely with soap and water and apply bacitracin or Neosporin. Follow up with your primary care provider in the next few days. Return to the emergency department if he develops chest pain, fevers, shortness of breath, syncope, headaches, dizziness, or confusion. Prescriptions: No Action atorvastatin 10 mg Tablet 10 mg PO QPM RF: 0 aspirin 325 mg Tablet 325 mg PO QPM RF: 0 fluorouracil 5 % Cream 1 applic TOPICAL [id number] RF: 0 calcium carbonate [Tums] 200 mg calcium (500 mg) Tablet,Chewable 200 mg PO PRN PRN (Reason: Indigestion) RF: 0 [id number]-[id number] [Migraine Relief] 250-250-65 mg Tablet 1 tab PO PRN PRN (Reason: Migraine Headache) RF: 0 Referrals: Natalia Light [Primary Care Provider] -
--- NOTE | 2019-03-07 14:37 | DI.CT.S_ITS ---
PROCEDURE: CT HEAD/BRAIN WO CON INDICATIONS: syncope, head lac TECHNIQUE: Noncontrast 4.5 mm thick angled axial sections acquired from the foramen magnum to the vertex, with coronal and sagittal reformats. For radiation dose reduction, the following was used: automated exposure control, adjustment of mA and/or kV according to patient size. COMPARISON: [facility], CT, CT BRAIN WO CON, 01/12/2017, 13:18. FINDINGS: Image quality: Excellent. CSF spaces: Basal cisterns are patent. No extra-axial fluid collections. The ventricles are symmetric in size and shape. Brain: No intracranial bleeds or masses. There is cerebral volume loss for age, with resultant ventricular and sulcal prominence. There are periventricular and deep white matter chronic small vessel ischemic changes. There is intracranial internal carotid artery and vertebral artery atherosclerosis. Skull and face: Calvarium and visualized facial bones appear intact, without suspicious lesions. Frontal scalp laceration noted. Sinuses: Visualized sinuses and mastoids are clear. IMPRESSION: No acute intracranial disease process. Dictated by: Lia Maciel MD, PhD on 03/07/2019 at 14:42 Approved by: Lia Maciel MD, PhD on 03/07/2019 at 14:56
--- NOTE | 2019-03-07 14:37 | DI.CT.S_ITS ---
PROCEDURE: CT CERVICAL SPINE WO CON INDICATIONS: neck pain post syncope and head injury TECHNIQUE: Noncontrast 3 mm thick sections acquired from the skull base to the T4 level. Sagittal and coronal reformats were then constructed. For radiation dose reduction, the following was used: automated exposure control, adjustment of mA and/or kV according to patient size. COMPARISON: None. FINDINGS: Image quality: Excellent. Bones: No fractures or dislocations there is moderately severe degenerative disc disease from C4-C7. No traumatic subluxation is seen, facet degeneration is mild in severity over these areas.. Visualized superior ribs are intact. Soft tissues: Prevertebral soft tissues are normal in thickness. No paravertebral hematomas. No apical pneumothoraces. IMPRESSION: Moderately severe degenerative disc disease from C4-C7 but facet osteoarthritis appears quite mild through these areas in contrast. No fracture or traumatic subluxation is seen. Dictated by: Rachid Ramirez M.D. on 03/07/2019 at 14:51 Approved by: Rachid Ramirez M.D. on 03/07/2019 at 14:52
[2019-03-07 14:40] LABS: Hematocrit 41.7 % (41-53); Hemoglobin 14.7 g/dL (13.5-17.5); INR 1.1 (0.9-1.3); Mean Corpuscular HGB Conc 35.3 % (30-36); Mean Corpuscular Hemoglobin 28.2 PG (26-34); Mean Corpuscular Volume 79.8 fL (80-100); Platelet Count 125 X10^3/uL (150-400); Prothrombin Time 12.6 SECONDS (10.1-12.7); Red Blood Cell Count 5.22 X10^6/uL (4.5-5.9); Red Cell Distribution Width 14.1 % (11.6-14.8); White Blood Cell Count 6.3 X10^3/uL (4.5-11.0)
[2019-03-07 14:43] LABS: Add Manual Diff / Slide Review YES
[2019-03-07 14:44] LABS: Alanine Aminotransferase 12 IU/L (21-72); Albumin 4.4 g/dL (3.5-5.0); Albumin Globulin Ratio 1.5 (1.0-2.8); Alkaline Phosphatase 63 U/L (38-126); Aspartate Aminotransferase 17 IU/L (17-59); Bilirubin Total 1.5 mg/dL (0.2-1.3); Blood Urea Nitrogen 11 mg/dL (9-20); Calcium 9.4 mg/dL (8.4-10.2); Carbon Dioxide 25 mmol/L (22-32); Chloride 105 mmol/L (98-107); Creatine Kinase 33 U/L (55-170); Estimated Glomerular Filt Rate > 60.0 mL/min (>60); Glucose 108 mg/dL (80-110); HEMOLYSIS < 15 (0-50); Potassium 3.7 mmol/L (3.4-5.1); Sodium 141 mmol/L (137-145); Total Protein 7.4 g/dL (6.3-8.2)
[2019-03-07 14:56] LABS: Troponin I < 0.012 ng/mL (0.01-0.034)
[2019-03-07 15:01] LABS: Neutrophils Absolute Manual 2772 /uL (3000-5900); RBC Morphology Normal Morphology; Total Cells Counted 100
--- NOTE | 2019-03-07 15:30 | PC.NURSE ---
1510 c collar removed. emotional support to patient. pt is not happy being in the hospital. refusing IVF. states he has rights and is not happy with the ER. emotional support to too. CARMINA Cesar
[2019-03-07 15:58] VITALS: BP 172/98; PULSE 68; RESP 24; O2SAT 100
[2019-03-07] MEDS: BACITRACIN OINT 0.9 GM PCKT 1 APPLIC TOP (16:08)
== END 2019-03-07 16:24 | disposition home or self-care (01) ==
PROVIDERS: Emergency Provider Nurse Practitioner; PCP Family Medicine
DX: S00.91XA Abrasion of unspecified part of head, initial encounter (principal); W18.12XA Fall from or off toilet with subsequent striking against object, initial encounter
CPT/HCPCS: 36591; 70450; 72125; 80053; 82550; 84484; 85025; 85610; 93005; 99283; 99285

== ENCOUNTER → 2023-04-19 12:17 | Outpatient (CLI) | payer OTHER, SELFPAY ==
--- NOTE | 2023-04-19 12:19 | DI.RAD.S_ITS ---
PROCEDURE: XR WRIST RT MIN 3V INDICATIONS: Wrist pain TECHNIQUE: 4 views of the wrist were acquired. COMPARISON: None. FINDINGS: Bones: No fractures or dislocations. No suspicious bony lesions. Osteopenia. Scaphoid view: Unremarkable. Soft tissues: No suspicious soft tissue calcifications. IMPRESSION: No acute bony abnormality. Dictated by: Javier Valera M.D. on 04/19/2023 at 15:42 Approved by: Javier Valera M.D. on 04/19/2023 at 15:43
--- NOTE | 2023-04-19 12:19 | DI.RAD.S_ITS ---
PROCEDURE: XR CLAVICLE RT INDICATIONS: Shoulder pain TECHNIQUE: 2 views of the clavicle were acquired. COMPARISON: None. FINDINGS: Bones: No fractures or dislocations. No suspicious bony lesions. Soft tissues: No suspicious soft tissue calcifications. IMPRESSION: No acute bony abnormality. Dictated by: Javier Valera M.D. on 04/19/2023 at 15:43 Approved by: Javier Valera M.D. on 04/19/2023 at 15:43
--- NOTE | 2023-04-19 12:19 | DI.RAD.S_ITS ---
PROCEDURE: XR SHOULDER RT MIN 2V INDICATIONS: Shoulder pain TECHNIQUE: 3 views of the shoulder were acquired. COMPARISON: None. FINDINGS: Bones: No fractures or dislocations. No suspicious bony lesions. Visualized ribs appear intact. Soft tissues: No suspicious soft tissue calcifications. IMPRESSION: No acute bony abnormality. No significant degenerative change. Dictated by: Javier Valera M.D. on 04/19/2023 at 15:43 Approved by: Javier Valera M.D. on 04/19/2023 at 15:43
== END ==
PROVIDERS: PCP Internal Medicine; Referring Provider Nurse Practitioner Family; Visit Provider Nurse Practitioner Family
DX: M25.511 Pain in right shoulder (principal); M25.531 Pain in right wrist; W19.XXXA Unspecified fall, initial encounter
CPT/HCPCS: 73000; 73030; 73110

== ENCOUNTER 2024-07-14 02:47 | Observation (INO) | payer OTHER, SELFPAY ==
[2024-07-14] VITALS (12 sets, daily range): BP systolic 109–164; BP diastolic 60–101; PULSE 31–103; RESP 16–20; TEMP 35.9–36.7; O2SAT 91–98; BMI 25.7
--- NOTE | 2024-07-14 02:56 | DI.RAD.S_ITS ---
PROCEDURE: XR LUMBAR SPINE 2-3V INDICATIONS: LBP after fall TECHNIQUE: 3 views of the lumbar spine were acquired. COMPARISON: None. FINDINGS: Bones: 5 [id number]-eybceek vertebrae are present. There is normal bony alignment. No acute vertebral body compression fractures. No suspicious bony lesions. Multilevel degenerative changes including disc and foraminal narrowing as well as anterior osteophytes. Disc and foraminal narrowing most severe at L5-S1. Soft tissues: Overlying bowel gas pattern is normal. Focus of increased density is present overlying the left upper abdomen.. IMPRESSION: No visualized acute fracture or dislocation. However, if clinical concern and/or pain persist, short interval imaging followup in 7-10 days is recommended, as occult injury cannot be definitively excluded. Density overlying the left upper abdomen possibly artifact or stone. The above findings are concordant with preliminary report. Dictated by: Celina Mulligan M.D. on 07/14/2024 at 9:29 Approved by: Celina Mulligan M.D. on 07/14/2024 at 9:30
--- NOTE | 2024-07-14 03:03 | ED_ITS ---
HPI - General Adult General Chief complaint: Weakness Stated complaint: gen. pain Time Seen by Provider: 07/14/24 02:47 Source: patient and EMS Mode of arrival: EMS History of Present Illness HPI narrative: Patient was an 88-year-old male who is brought in by EMS for evaluation of generalized pain and weakness. Per EMS this evening the patient had an episode where he became very weak and lowered himself to the ground. He did not fall. Denied his head. He was complaining of lower back pain but this was after a fall a couple days ago. Per his he has been falling more recently with decreased oral intake. No fevers. No vomiting. He does have bruises in various stages of healing throughout his upper and lower extremities. He denies chest pain, shortness of breath. He was not on anticoagulation. He states that his lower back does cause him quite a bit of discomfort. He uses a walker at baseline. Patient also states that 2 nights ago he laid on the floor for greater than 12 hours because he could not get up. He was able to get himself up with he was self in his walker however took him quite a bit of time because of weakness and back discomfort. Related Data Home Medications Medication Instructions Recorded Confirmed aspirin 325 mg tablet 325 mg PO QPM 05/28/18 04/19/23 zocndwy-lcecjwszrrzqr-ochzrdge 250 1 tab PO PRN PRN Migraine Headache 05/28/18 04/19/23 mg-250 mg-65 mg tablet (Migraine Relief) atorvastatin 10 mg tablet 10 mg PO QPM 05/28/18 04/19/23 pantoprazole 40 mg tablet,delayed 40 mg PO DAILY 04/19/23 04/19/23 release valsartan 40 mg tablet 40 mg PO DAILY 04/19/23 04/19/23 Allergies Allergy/AdvReac Type Severity Reaction Status Date / Time morphine AdvReac Verified 03/26/23 10:46 Review of Systems Review of Systems ROS Unobtainable: All systems reviewed & are unremarkable except as noted in HPI and below Patient History Medical History Pacemaker CVA (cerebral vascular accident) Hyperlipidemia Social History Smoking Status: Never smoker Smoking Status: Never smoker alcohol intake frequency: holidays/special occasions only Exam Initial Vital Signs Initial Vital Signs: Vital Signs Pulse Rate 31 L 07/14/24 02:50 Pulse Oximetry 94 07/14/24 02:50 Const General: comfortable and No ill appearing HENMT Head: normal to inspection and normocephalic HENMT Other: Dry mucous membranes Resp Effort & Inspection: normal respiratory effort Auscultation: clear to auscultation bilaterally Cardio Rate: regular rate Rhythm: regular rhythm Back/Spine/Pelvis Cervical Spine: No cervical spinal tenderness Thoracic/Lumbar Spine: paraspinal tenderness, No thoracic spinal tenderness and lumbar spinal tenderness Skin Other: Bruising in his upper and lower extremities. Abrasions in upper and lower extremities. Poor skin turgor. Dry skin. Neuro General: patient alert, patient awake, patient oriented x3 and moves all extremities Extrem Other: Pelvis is stable. Can flex and extend the hips and knees and shoulder and elbows without discomfort. Scores GCS [place] coma scale eye opening: Spontaneous [place] coma scale verbal response: Orientated [place] coma scale motor response: Obey commands [place] coma scale total score: 15 Course Orders Ordered: ED Orders 07/14/24 02:55 Complete Blood Count AUTO DIFF Stat Comprehensive Metabolic Panel Stat Lipase Stat Troponin & CK Cardiac Panel Stat 07/14/24 02:56 XR lumbar spine 2-3V Stat 07/14/24 05:01 EKG-12 Lead Stat 07/14/24 05:10 Troponin & CK Cardiac Panel Stat 07/14/24 06:02 Education, smoking cessation ONGOING Acetaminophen (Acetaminophen 325 Mg Tablet) 650 mg PO Q6H PRN PRN Reason: Fever/Mild Pain (1-3) Heparin Sodium (Porcine) (Heparin 5,000 Unit/Ml Vial) 5,000 unit SUBCUT BID YARY Naloxone HCl (Naloxone 0.4 Mg/Ml Vial) 0.2 mg IV Q2MIN PRN PRN Reason: Opiate Reversal Discontinued Medications Hydrocodone Bitart/Acetaminophen (Hydrocodone/Acet 5/325 Tablet) 1 tab PO NOW ONE Stop: 07/14/24 05:01 Last Admin: 07/14/24 05:03 Dose: 1 tab Documented By: JOCELYNN Hydromorphone HCl (Hydromorphone 0.5 Mg Inj) 0.5 mg IV NOW ONE Stop: 07/14/24 05:56 Last Admin: 07/14/24 06:00 Dose: 0.5 mg Documented By: AB Sodium Chloride (Normal Saline 0.9%) 1,000 mls @ 1,000 mls/hr IV BOLUS ONE Stop: 07/14/24 03:58 Last Infusion: 07/14/24 05:54 Dose: Infused Documented By: Admin: 07/14/24 04:02 Dose: 1,000 mls/hr Documented By: Ketorolac Tromethamine (Ketorolac 30 Mg/Ml Vial) 15 mg IV NOW ONE Stop: 07/14/24 05:56 Last Admin: 07/14/24 06:01 Dose: 15 mg Documented By: Vital Signs Vital signs: Vital Signs - 8 hr 07/14/24 02:50 07/14/24 02:51 07/14/24 02:51 Temperature Pulse Rate 31 L 103 H Respiratory Rate Blood Pressure 164/101 H Pulse Oximetry 94 93 Oxygen Delivery Method 07/14/24 02:55 07/14/24 03:00 07/14/24 03:01 Temperature 98 F Pulse Rate 103 H 95 H 92 H Respiratory Rate 18 Blood Pressure 164/101 H Pulse Oximetry 94 95 94 Oxygen Delivery Method Room Air 07/14/24 03:01 Temperature Pulse Rate Respiratory Rate Blood Pressure 141/74 H Pulse Oximetry Oxygen Delivery Method Medical Decision Making Medical Records Medical records reviewed: Yes I reviewed the patient's medical records. Lab Data Lab results reviewed: Yes I reviewed the patient's lab results. 07/14/24 02:55 07/14/24 02:55 Labs: Lab Results 07/14/24 07/14/24 Range/Units 02:55 05:10 WBC 14.0 H (4.5-11.0) X10^3/uL RBC 5.22 (4.5-5.9) X10^6/uL Hgb 15.1 (13.5-17.5) g/dL Hct 42.9 (41-53) % MCV 82.1 (80-100) fL MCH 28.9 (26-34) PG MCHC 35.2 (30-36) % RDW 14.1 (11.6-14.8) % Plt Count 231 (150-400) X10^3/uL Neut % (Auto) 55.7 (50-75) % Lymph % (Auto) 8.5 L (25-40) % [place] % (Auto) 34.3 H (3-14) % Eos % (Auto) 1.3 L (2-4) % Baso % (Auto) 0.2 (0-2) % Neut # (Auto) 7800 H (6961-3555) /uL Lymph # (Auto) 1200 (8750-7245) /uL [place] # (Auto) 4800 H (0-900) /uL Eos # (Auto) 200 (0-450) /uL Baso # (Auto) 0 (0-100) /uL Sodium 137 (137-145) mmol/L Potassium 3.8 (3.4-5.1) mmol/L Chloride 105 (98-107) mmol/L Carbon Dioxide 21 L (22-32) mmol/L BUN 16 (9-20) mg/dL Creatinine 1.04 (0.66-1.25) mg/dL Estimated GFR > 60 (>60) mL/min BUN/Creatinine Ratio 15.4 (6-22) Glucose 130 H (80-110) mg/dL Calcium 8.9 (8.4-10.2) mg/dL Total Bilirubin 3.0 H (0.2-1.3) mg/dL AST 71 H (17-59) IU/L ALT 37 (<50) IU/L Alkaline Phosphatase 86 (38-126) U/L Total Creatine Kinase 552 H 561 H (55-170) U/L Troponin I 0.033 0.036 H (0.01-0.034) ng/mL Total Protein 6.9 (6.3-8.2) g/dL Albumin 4.1 (3.5-5.0) g/dL Globulin 2.8 (1.7-4.1) g/dL Albumin/Globulin Ratio 1.5 (1.0-2.8) Lipase 53 (23-300) U/L Imaging Data Lumbar spine x-ray: Radiologist's Impression: PROCEDURE: CT HEAD/BRAIN WO CON INDICATIONS: fall on thinners TECHNIQUE: Noncontrast 4.5 mm thick angled axial sections acquired from the foramen magnum to the vertex, with coronal and sagittal reformats. For radiation dose reduction, the following was used: automated exposure control, adjustment of mA and/or kV according to patient size. COMPARISON: None. FINDINGS: Image quality: Diagnostic CSF spaces: Basal cisterns are patent. Lateral ventricles are symmetric. Volume: Vascular calcifications. Periventricular white matter disease is commonly seen with chronic microangiopathy. Volume loss is present. These findings are moderate Brain: There are small bilateral low density extra-axial collections along side both cerebral hemispheres. No acute hemorrhagic component is present. No intraparenchymal hemorrhage. No gross loss of kolb-white differentiation. Craniofacial structures: Possible small osteoma in the right maxillary sinus. Mastoids are clear. Right supraorbital contusion IMPRESSION: Age-indeterminate suspected small bilateral subdural hygromas. There is no acute appearing hemorrhagic component. No significant mass effect. Right supraorbital soft tissue contusion. ECG Data Attestation: I personally reviewed and interpreted this ECG as follows: Interpretation: Sinus rhythm First-degree AV block. To for a milliseconds Ventricular rate 93 Artifact noted MDM Narrative Medical decision making narrative: Patient was alert and oriented. His complaint is weakness, low back pain and ?pain all over? he was clinically dehydrated with dry mucous membranes and poor skin turgor. He was abrasions of various stages of healing throughout his body but is able to move his extremities when he was lying. He was most comfortable in his side. He as no skin breakdown on his back. Lumbar spine x-ray showed no acute fractures. Despite fluids patient has been unable to provide a urine sample. He does have leukocytosis however no specific source of infection has been found. Will hold on antibiotics for now. Discussed the case with Dr. Joaquin hospitalist on-call who will admit for further evaluation and treatment. Discharge Plan Departure Patient Disposition: Admitted as Observation Clinical Impression: Dehydration, Weakness, Low back pain, Abrasion of skin Admit Date/Time: 07/14/24 06:05 Admit Provider: David Joaquin
[2024-07-14 03:19] LABS: Add Manual Diff / Slide Review NO; Alanine Aminotransferase 37 IU/L (<50); Albumin 4.1 g/dL (3.5-5.0); Albumin Globulin Ratio 1.5 (1.0-2.8); Alkaline Phosphatase 86 U/L (38-126); Aspartate Aminotransferase 71 IU/L (17-59); BUN Creatinine Ratio 15.4 (6-22); Basophils Absolute Auto 0 /uL (0-100); Basophils Percent Auto 0.2 % (0-2); Blood Urea Nitrogen 16 mg/dL (9-20); Calcium 8.9 mg/dL (8.4-10.2); Carbon Dioxide 21 mmol/L (22-32); Chloride 105 mmol/L (98-107); Creatine Kinase 552 U/L (55-170); Eosinophils Absolute Auto 200 /uL (0-450); Eosinophils Percent Auto 1.3 % (2-4); Estimated Glomerular Filt Rate > 60 mL/min (>60); Globulin 2.8 g/dL (1.7-4.1); Glucose 130 mg/dL (80-110); HEMOLYSIS 48 (0-50); Hematocrit 42.9 % (41-53); Hemoglobin 15.1 g/dL (13.5-17.5); Lipase 53 U/L (23-300); Lymphocytes Absolute Auto 1200 /uL (1100-4500); Lymphocytes Percent Auto 8.5 % (25-40); Mean Corpuscular HGB Conc 35.2 % (30-36); Mean Corpuscular Hemoglobin 28.9 PG (26-34); Mean Corpuscular Volume 82.1 fL (80-100); Monocytes Absolute Auto 4800 /uL (0-900); Monocytes Percent Auto 34.3 % (3-14); Neutrophils Absolute Auto 7800 /uL (1500-7000); Neutrophils Percent Auto 55.7 % (50-75); Platelet Count 231 X10^3/uL (150-400); Potassium 3.8 mmol/L (3.4-5.1); Red Blood Cell Count 5.22 X10^6/uL (4.5-5.9); Red Cell Distribution Width 14.1 % (11.6-14.8); Sodium 137 mmol/L (137-145); Total Protein 6.9 g/dL (6.3-8.2)
[2024-07-14 03:30] LABS: Troponin I 0.033 ng/mL (0.01-0.034)
[2024-07-14] MEDS: SODIUM CHLORIDE 0.9% 1,000 ML 1000 ML IV (04:02)
--- NOTE | 2024-07-14 05:01 | EKG_ITS ---
[facility] [address] [place] [address] Test Date: 2024-07-14 Pat Name: Jayy Beckman Department: [facility] Room: Gender: Male [employer]phalt Paving [employer]man: JONO : 1935 Requested By: Order Number: [id number] Reading MD: Jarek Jimenez MD Measurements Intervals [place] Rate: 93 P: IA: 248 QRS: -24 QRSD: 82 T: -76 QT: 372 QTc: 462 Interpretive Statements Sinus rhythm with 1st degree AV block with occasional premature ventricular complexes Low voltage QRS ST & T wave abnormality, consider inferior ischemia Electronically Signed On 07-14-2024 8:48:20 PST by Jarek Jimenez MD
[2024-07-14] MEDS: HYDROCODONE/ACET 5/325 TABLET 1 TAB PO (05:03)
[2024-07-14 05:29] LABS: Creatine Kinase 561 U/L (55-170)
[2024-07-14 05:42] LABS: Troponin I 0.036 ng/mL (0.01-0.034)
[2024-07-14] MEDS: HYDROMORPHONE 0.5 MG INJ IV (06:00)
[2024-07-14] MEDS: KETOROLAC 30 MG/ML VIAL 15 MG IV (06:01)
[2024-07-14 06:45] LABS: Add Manual Diff / Slide Review NO; Basophils Absolute Auto 0 /uL (0-100); Basophils Percent Auto 0.2 % (0-2); Eosinophils Absolute Auto 100 /uL (0-450); Eosinophils Percent Auto 0.9 % (2-4); Hematocrit 39.1 % (41-53); Hemoglobin 13.6 g/dL (13.5-17.5); Lymphocytes Absolute Auto 1200 /uL (1100-4500); Lymphocytes Percent Auto 11.1 % (25-40); Mean Corpuscular HGB Conc 34.7 % (30-36); Mean Corpuscular Hemoglobin 28.5 PG (26-34); Mean Corpuscular Volume 82.1 fL (80-100); Monocytes Absolute Auto 3200 /uL (0-900); Neutrophils Absolute Auto 6200 /uL (1500-7000); Neutrophils Percent Auto 57.8 % (50-75); Platelet Count 209 X10^3/uL (150-400); Red Blood Cell Count 4.76 X10^6/uL (4.5-5.9); Red Cell Distribution Width 13.8 % (11.6-14.8); White Blood Cell Count 10.8 X10^3/uL (4.5-11.0)
--- NOTE | 2024-07-14 06:48 | P.HP_ITS ---
History of Present Illness History of Present Illness Chief complaint: gen. pain Narrative: 88 year old male with past medicla history of HLD, GERD and HTN presents with a fall and generalized weakness. Per report, the patient had a fall a few days ago. The patient however didn't come into the ER to be evaluated. However, this evening, the patient felt weak in his legs and lowered himself down to the ground. The patient denies any fall within the last 1-2 days. The patient however did have some lower back pain since his last fall a few days ago. The patient's also states that the patient has decrease oral intake of food and fluid over the last few days as well. Otherwise, the patient denies any fever, chills, nausea, vomiting, diarrhea, chest pain or shortness of breath. In our ER, the patient was hemodynamically stable. WBC was 14 but no other significant lab. CK 500s and trops were 0.33 to 0.36. EKG shows no clear sign of acute ischemia. CXR clear. Lumbar xray shows no acute findings. UA pending. Due to sign of dehydration and generalized weakness, our ER physician requested admission for IVF and PT/OT. PFSH Medical History Pacemaker CVA (cerebral vascular accident) Hyperlipidemia Social History Smoking Status: Never smoker Meds Home Medications and Allergies Home Medications Medication Instructions Recorded Confirmed Type aspirin 325 mg tablet 325 mg PO QPM 05/28/18 04/19/23 History ogiclku-appkhmebtffth-plewqlep 250 1 tab PO PRN PRN Migraine Headache 05/28/18 04/19/23 History mg-250 mg-65 mg tablet (Migraine Relief) atorvastatin 10 mg tablet 10 mg PO QPM 05/28/18 04/19/23 History pantoprazole 40 mg tablet,delayed 40 mg PO DAILY 04/19/23 04/19/23 History release valsartan 40 mg tablet 40 mg PO DAILY 04/19/23 04/19/23 History Allergies Allergy/AdvReac Type Severity Reaction Status Date / Time morphine AdvReac Verified 03/26/23 10:46 Review of Systems Review of Systems ROS: Yes All systems reviewed with the patient and are negative except as otherwise documented Exam Vital Signs (past 8 hours): - 07/14/24 02:50 07/14/24 02:51 07/14/24 02:51 Temperature Pulse Rate 31 L 103 H Respiratory Rate Blood Pressure 164/101 H Pulse Oximetry 94 93 Oxygen Delivery Method 07/14/24 02:55 07/14/24 03:00 07/14/24 03:01 Temperature 98 F Pulse Rate 103 H 95 H 92 H Respiratory Rate 18 Blood Pressure 164/101 H Pulse Oximetry 94 95 94 Oxygen Delivery Method Room Air 07/14/24 03:01 Temperature Pulse Rate Respiratory Rate Blood Pressure 141/74 H Pulse Oximetry Oxygen Delivery Method Oxygen Delivery Method Room Air Narrative Exam Narrative: Physical Exam: GENERAL: The patient is not in any acute distressed. Awake and alert. HEENT: Nonicteric sclerae, PERRLA, EOMI. Oropharynx clear. Moist mucous membranes. Conjunctivae appear well perfused. HEART: Regular rate and rhythm without murmurs. No lower extremities edema. LUNGS: Clear to auscultation bilaterally. No wheezing, crackles or rhonchi ABDOMEN: Soft, positive bowel sounds, nontender. SKIN: No rash, no excessive bruising, petechiae, or purpura. NEUROLOGIC: AxO x 3. Cranial nerves II-XII intact without motor/sensory deficit. Objective Labs 07/14/24 06:33 07/14/24 02:55 Labs: Laboratory Results - last 24 hr 07/14/24 07/14/24 07/14/24 02:55 05:10 06:33 WBC 14.0 H 10.8 RBC 5.22 4.76 Hgb 15.1 13.6 Hct 42.9 39.1 L MCV 82.1 82.1 MCH 28.9 28.5 MCHC 35.2 34.7 RDW 14.1 13.8 Plt Count 231 209 Neut % (Auto) 55.7 57.8 Lymph % (Auto) 8.5 L 11.1 L [place] % (Auto) 34.3 H 30.0 H Eos % (Auto) 1.3 L 0.9 L Baso % (Auto) 0.2 0.2 Neut # (Auto) 7800 H 6200 Lymph # (Auto) 1200 1200 [place] # (Auto) 4800 H 3200 H Eos # (Auto) 200 100 Baso # (Auto) 0 0 Sodium 137 Potassium 3.8 Chloride 105 Carbon Dioxide 21 L BUN 16 Creatinine 1.04 Estimated GFR > 60 BUN/Creatinine Ratio 15.4 Glucose 130 H Calcium 8.9 Total Bilirubin 3.0 H AST 71 H ALT 37 Alkaline Phosphatase 86 Total Creatine Kinase 552 H 561 H Troponin I 0.033 0.036 H Total Protein 6.9 Albumin 4.1 Globulin 2.8 Albumin/Globulin Ratio 1.5 Lipase 53 Assessment & Plan Assessment & Plan narrative: Generalized weakness. Admit the patient to medical observation. Likely from dehydration. No clear sign of infection yet. Hydrate with IVF and PT/OT. Note xray of lumbar spine shows no acute findings. pain control. Leukocytosis. WBC 14. No clear sign of infection. Afebrile. CXR clear but UA pending. Monitor for now. Dehydration. IVF and encourage PO intake. HLD. Resume home Statin. HTN. Monitor BP and resume home HTN medications. GERD. PT/OT. DVT PPx SCDs and hep SQ Code status DNR/DNI Disposition home in 1-2 days Time-Based Coding :: [TOTAL MINUTES] spent with patient and on the chart (including review of chart, obtaining history, exam, reviewing outside data, placing orders, documenting exam and treatment plan, and counseling patient) on [DATE].
[2024-07-14 06:55] LABS: BUN Creatinine Ratio 16.1 (6-22); Blood Urea Nitrogen 15 mg/dL (9-20); Calcium 8.4 mg/dL (8.4-10.2); Carbon Dioxide 19 mmol/L (22-32); Chloride 109 mmol/L (98-107); Estimated Glomerular Filt Rate > 60 mL/min (>60); Glucose 107 mg/dL (80-110); HEMOLYSIS < 15 (0-50); Potassium 3.6 mmol/L (3.4-5.1); Sodium 137 mmol/L (137-145)
[2024-07-14 08:10] LABS: Influenza A - CEPHEID Flu A NEGATIVE (NEGATIVE); Influenza B - CEPHEID Flu B NEGATIVE (NEGATIVE); Respiratory Syncytial Virus Negative (Negative)
[2024-07-14 08:11] LABS: COVID-19 CEPHEID 4-PLEX PCR Negative (Negative)
--- NOTE | 2024-07-14 11:28 | PC.NURSE ---
UOP 1125 Denies need/urge to void. PO fluids provided and encouraged as pt is now awake. Informed pt that RN will bladder scan if still not feeling need/urge to void after lunch.
[2024-07-14] MEDS: DEXTROSE 5%-0.45% NS 1,000 ML 100 ML IV ×2 (12:47→22:48)
[2024-07-14] MEDS: HEPARIN 5,000 UNIT/ML VIAL 5000 UNIT SUBCUT ×2 (12:51→20:29)
--- NOTE | 2024-07-14 13:06 | PM.HP.1 ---
History of Present Illness History of Present Illness Date Patient Seen: 07/14/24 Time Patient Seen: 08:25 Chief complaint: gen. pain Narrative: 88 year old male with past medicla history of HLD, GERD and HTN presents with a fall and generalized weakness. Per report, the patient had a fall a few days ago. The patient however didn't come into the ER to be evaluated. However, this evening, the patient felt weak in his legs and lowered himself down to the ground. The patient denies any fall within the last 1-2 days. The patient however did have some lower back pain since his last fall a few days ago. The patient's also states that the patient has decrease oral intake of food and fluid over the last few days as well. Otherwise, the patient denies any fever, chills, nausea, vomiting, diarrhea, chest pain or shortness of breath. In our ER, the patient was hemodynamically stable. WBC was 14 but no other significant lab. CK 500s and trops were 0.33 to 0.36. EKG shows no clear sign of acute ischemia. CXR clear. Lumbar xray shows no acute findings. UA pending. Due to sign of dehydration and generalized weakness, our ER physician requested admission for IVF and PT/OT. Interval history: The patient is calm, appropriate but appears confused, unable to state his location, day, date, recent holidays or the year. He states he has not seen a doctor in many years. [facility] Medical History CVA (cerebral vascular accident) Hyperlipidemia Pacemaker Social History household members: spouse Smoking Status: Never smoker alcohol intake: current Meds Home Medications and Allergies Home Medications Medication Instructions Recorded Confirmed Type atorvastatin 10 mg tablet 10 mg PO QPM 05/28/18 07/14/24 History pantoprazole 40 mg tablet,delayed 40 mg PO DAILY 04/19/23 07/14/24 History release valsartan 40 mg tablet 40 mg PO DAILY 04/19/23 07/14/24 History ascorbic acid (vitamin C) 500 mg 500 mg PO DAILY 07/14/24 07/14/24 History tablet (Vitamin C) aspirin 81 mg capsule 81 mg PO BEDTIME 07/14/24 07/14/24 History cyanocobalamin (vitamin B-12) 3,000 mcg PO DAILY 07/14/24 07/14/24 History 3,000 mcg capsule magnesium citrate 100 mg capsule 600 mg PO DAILY 07/14/24 07/14/24 History multivit with minerals-iron 18 1 tab PO DAILY 07/14/24 07/14/24 History mg-folic ac 400 mcg-vit K 25 mcg tablet (Adults Multivitamin) Allergies Allergy/AdvReac Type Severity Reaction Status Date / Time morphine AdvReac Verified 03/26/23 10:46 Review of Systems Review of Systems ROS: Yes All systems reviewed with the patient and are negative except as otherwise documented Exam Vital Signs (past 8 hours): - 07/14/24 06:58 07/14/24 06:59 07/14/24 07:21 Temperature Pulse Rate 89 85 Respiratory Rate 16 Blood Pressure 118/60 109/61 Pulse Oximetry 91 91 Oxygen Delivery Method Room Air Oxygen Flow Rate 07/14/24 07:45 07/14/24 11:00 Temperature 96.7 F L 96.8 F L Pulse Rate 90 62 Respiratory Rate 19 17 Blood Pressure 124/75 125/73 Pulse Oximetry 93 95 Oxygen Delivery Method Oxygen Flow Rate 0 0 Oxygen Delivery Method Room Air Oxygen Flow Rate 0 Narrative Exam Narrative: GENERAL: The patient is not in any acute distressed. Awake and alert, oriented to person only. HEENT: Nonicteric sclerae, PERRLA, EOMI. Oropharynx clear. Moist mucous membranes. Conjunctivae appear well perfused. HEART: Regular rate and rhythm without murmurs. No lower extremities edema. LUNGS: Clear to auscultation bilaterally. No wheezing, crackles or rhonchi ABDOMEN: Soft, positive bowel sounds, nontender. SKIN: No rash, no excessive bruising, petechiae, or purpura. NEUROLOGIC: AxO x 1. Cranial nerves II-XII intact without motor/sensory deficit. Objective Labs 07/14/24 06:33 07/14/24 06:33 Labs: Laboratory Results - last 24 hr 07/14/24 07/14/24 07/14/24 02:55 05:10 06:33 WBC 14.0 H 10.8 RBC 5.22 4.76 Hgb 15.1 13.6 Hct 42.9 39.1 L MCV 82.1 82.1 MCH 28.9 28.5 MCHC 35.2 34.7 RDW 14.1 13.8 Plt Count 231 209 Neut % (Auto) 55.7 57.8 Lymph % (Auto) 8.5 L 11.1 L [place] % (Auto) 34.3 H 30.0 H Eos % (Auto) 1.3 L 0.9 L Baso % (Auto) 0.2 0.2 Neut # (Auto) 7800 H 6200 Lymph # (Auto) 1200 1200 [place] # (Auto) 4800 H 3200 H Eos # (Auto) 200 100 Baso # (Auto) 0 0 Sodium 137 137 Potassium 3.8 3.6 Chloride 105 109 H Carbon Dioxide 21 L 19 L BUN 16 15 Creatinine 1.04 0.93 Estimated GFR > 60 > 60 BUN/Creatinine Ratio 15.4 16.1 Glucose 130 H 107 Calcium 8.9 8.4 Total Bilirubin 3.0 H AST 71 H ALT 37 Alkaline Phosphatase 86 Total Creatine Kinase 552 H 561 H Troponin I 0.033 0.036 H Total Protein 6.9 Albumin 4.1 Globulin 2.8 Albumin/Globulin Ratio 1.5 Lipase 53 SARS-CoV-2 (PCR) Influenza A (RT-PCR) Influenza B (RT-PCR) RSV (PCR) 07/14/24 07:29 WBC RBC Hgb Hct MCV MCH MCHC RDW Plt Count Neut % (Auto) Lymph % (Auto) [place] % (Auto) Eos % (Auto) Baso % (Auto) Neut # (Auto) Lymph # (Auto) [place] # (Auto) Eos # (Auto) Baso # (Auto) Sodium Potassium Chloride Carbon Dioxide BUN Creatinine Estimated GFR BUN/Creatinine Ratio Glucose Calcium Total Bilirubin AST ALT Alkaline Phosphatase Total Creatine Kinase Troponin I Total Protein Albumin Globulin Albumin/Globulin Ratio Lipase SARS-CoV-2 (PCR) Negative Influenza A (RT-PCR) Flu a negative Influenza B (RT-PCR) Flu b negative RSV (PCR) Negative Assessment & Plan Assessment & Plan narrative: 1. Generalized weakness. Admit the patient to medical observation. Likely from dehydration. No clear sign of infection yet. Hydrate with IVF and PT/OT. Note xray of lumbar spine shows no acute findings. pain control. 2. Altered mental status. Baseline unclear. Obtain head CT to rule out intracranial injury given reported fall. 3. Leukocytosis. WBC 14. No clear sign of infection. Afebrile. CXR clear but UA pending. Monitor for now. 4. Borderline elevated troponin. Repeat and consider further evaluation as indicated. 5. Dehydration. IVF and encourage PO intake. 6. HLD. Resume home Statin. 7. HTN. Monitor BP and resume home HTN medications. 8. GERD. Continue PPI. 9. DVT PPx SCDs and hep SQ 10. Code status DNR/DNI Disposition home in 1-2 days Quality VTE Deep Vein Thrombosis/Pulmonary Embolism Present on Admission: No IH PROFEE Charge Codes Initial inpatient/observation care: [id number]
--- NOTE | 2024-07-14 13:09 | DI.CT.S_ITS ---
PROCEDURE: CT HEAD/BRAIN WO CON INDICATIONS: confusion TECHNIQUE: Noncontrast 4.5 mm thick angled axial sections acquired from the foramen magnum to the vertex, with coronal and sagittal reformats. For radiation dose reduction, the following was used: automated exposure control, adjustment of mA and/or kV according to patient size. COMPARISON: CT, CT HEAD/BRAIN WO CON, 03/07/2019, 14:28. FINDINGS: Image quality: Diagnostic. CSF spaces: Basal cisterns are patent. No extra-axial fluid collections. The ventricles are symmetric in size and shape. Brain: No intracranial bleeds or masses. There is cerebral volume loss for age, with resultant ventricular and sulcal prominence. There are periventricular and deep white matter chronic small vessel ischemic changes. There is intracranial internal carotid artery atherosclerosis. Skull and face: Calvarium and visualized facial bones appear intact, without suspicious lesions. Sinuses: Visualized sinuses and mastoids are clear. IMPRESSION: 1. No acute intracranial process. 2. Moderate atrophy and chronic microvascular ischemic changes. Dictated by: Celina Mulligan M.D. on 07/14/2024 at 14:37 Approved by: Celina Mulligan M.D. on 07/14/2024 at 14:38
--- NOTE | 2024-07-14 13:40 | PT.IIE ---
Medical History (Last Reviewed 07/14/24 @ 13:07 by David Duke MD) CVA (cerebral vascular accident) Hyperlipidemia Pacemaker Physical Therapy Inpatient Evaluation/Re-Eval M1 PT/OT-IP Prior Functional Status Start: 07/14/24 09:08 Freq: NEEDED Status: Active Protocol: Document 07/14/24 13:03 MB (Rec: 07/14/24 13:40 MB [id number]) Medical Review Prior Functional Status Medical History Reviewed Yes Communication Unsure baseline diet, pt presents with confusion and is not a good historian, he is [place] Mobility and Gait Ambulated in home with rollator and states he just had the one fall where he was down a long time. Per chart and 's reports in chart, pt with more than one fall at home Activities of Daily Living and IADL's Unsure baseline ADLs and pt states that his drives and he does not go to medical appointments Social History Household Members spouse Living Arrangements House Number of Floors (Floors) One Floor Number of Stairs To Enter/Railing? 2 steps and no rail to enter Home Environment Standard Height Toilet,Walk in Shower Home Equipment Four Wheel Walker,Shower Seat without Backrest,Grab Bars In Shower Employment Status Retired M2 PT-IP Current Condition Start: 07/14/24 09:08 Freq: NEEDED Status: Active Protocol: Document 07/14/24 13:03 MB (Rec: 07/14/24 13:40 MB [id number]) Physical Therapy Current Condition Current Condition Evaluation Date 07/14/24 Treatment Diagnosis Falls, pain, confusion M3 PT-IP Subjective Start: 07/14/24 09:08 Freq: NEEDED Status: Active Protocol: Document 07/14/24 13:03 MB (Rec: 07/14/24 13:40 MB [id number]) Subjective Physical Therapy Visit Type Type Initial Evaluation Visit Start Time 13:03 Visit Stop Time 13:28 Number of CALENDER ROLL PRESS OPERATOR Visits 0 Physical Therapy Visit Comments Patient Comments Pt [place], with confusion and tends to laugh at inappropriate times/with questions and answering PLOF questions Therapy Pain Assessment Pain When Pain Assessed At Rest Pain Present Pain Present Pain Reported Location Neck and LB Scale Used Does not rate M4 PT-IP Mobility and Gait Start: 07/14/24 09:08 Freq: NEEDED Status: Active Protocol: Document 07/14/24 13:03 MB (Rec: 07/14/24 13:40 MB [id number]) PT-Bed Mobility Assessment Rolling Type of Rolling Roll to Right,Roll to Left Level of Assist Contact Guard Assistance Supine to Sit Supine to Sit Contact Guard Assistance,1 Person Assistance,Head of Bed Elevated,Bedrails Sit to Supine Sit to Supine Contact Guard Assistance,1 Person Assistance,Head of Bed Elevated,Bedrails PT-Transfer Assessment Sit to and From Stand Sit to and from Stand Contact Guard Assistance Equipment Transfer Assistive Device Gait Belt,Front Wheeled Walker Orthotic/Prosthetic Devices or Brace: No Transfers Transfer Destination Bed Transfer Technique Left side step Transfer Ability Level of Assist Contact Guard Assistance Gait Assessment Gait Gait Assistance Required: Contact Guard Assist Distance (Feet) 3 Able to Maintain Weight Bearing Status Yes During Gait Assistive Devices Assistive Device Gait Belt,Front Wheeled Walker Orthotic/Prosthetic Devices or Brace: No Gait Deviations General Gait Pattern Decreased Stride Length, Decreased Feet Clearance, Flexed Trunk,Step-to Gait,Wide Based Gait Factors Limiting Gait Function Factors Limiting Gait Function Decreased Activity Tolerance, Pain,Poor Balance,Poor Safety Awareness Comments Gait Comments Pt with ongoing c/o neck and back pain with mobility and more c/o neck pain. He denies dizziness moving from right side lying to supine to left and sitting and standing and he denies light-headedness when up. Once sitting, he has KHAN and O2 sats are 97% and HR is 83 BPM sitting EOB and BP is normal in LUE. He reports increasing dizziness sitting longer and so returned to supine and then right side lying, which pt states feels nice. Nsg arrives to assist pt with urinal and PT leaves pt with nsg PT-Balance Assessment Sitting Balance and Reactions Static Sitting Balance Ability Good Dynamic Sitting Balance Ability Good Standing Balance and Reactions Static Standing Balance Ability Good Dynamic Standing Balance Ability Good Device Used RW M5 PT-IP Objective Assessments Start: 07/14/24 09:08 Freq: NEEDED Status: Active Protocol: Document 07/14/24 13:03 MB (Rec: 07/14/24 13:40 MB [id number]) Orientation Orientation/Cognition Level of Alertness Confusional State Orientation Name,Birthday Language Function Ability Hard of Hearing Safety Awareness Decreased Safety Awareness Memory Description Short Term Impaired,Long-Term Impaired Gross Range of Motion Upper Extremity ROM Assessment Bilaterally Impaired Impairments Age related changes and pt c/o pain and so functionally observed only today Lower Extremity ROM Assessment Bilaterally Impaired Impairments See above, abrasions and bruises on legs Strength Comments Strength Comments No MMT given c/o pain Coordination Assessment Assessment Coordination Comments Slow mobility today and pt cannot follow coordination or sensory cues Sensation Assessment Comments Sensation Comments See above Muscle Tone Muscle Tone WNL Yes M6 PT-IP Treatment Start: 07/14/24 09:08 Freq: NEEDED Status: Active Protocol: Document 07/14/24 13:03 MB (Rec: 07/14/24 13:40 MB [id number]) Physical Therapy Treatment Other Treatments Other Treatment Performed Forward, flexed posture and PT does not note any bruising on spine or neck, no nystagmus noted with rolling but pt does report increased dizziness with rolling to the right. He might benefit from dizziness testing as able to tolerate cognitively and pain-abernathy M7 PT-IP Assessment and Plan Start: 07/14/24 09:08 Freq: NEEDED Status: Active Protocol: Document 07/14/24 13:03 MB (Rec: 07/14/24 13:40 MB [id number]) PT Summary Assessment and Plan Potential Rehabilitation Potential Fair Status of Condition at Evaluation Evolving Summary Impairments Pain,ROM,Strength,Balance, Cognition,Bed Mobility, Transfers,Gait,Activity Tolerance Progress Towards Goals Slow Progress due to Pain,Slow Progress due to Activity Tolerance Assessment Summary Pt is an 88 y/o male presenting with confusion and c/o neck and back pain after falls at home. Pt is unable to tolerate bed flat for orthostatic assessment. He presents with brusing and abrasions on legs and PT does not note any bruising on back or neck today. He cannot tolerate cervical range or other ROM, sensory or strength testing today. He reports dizziness that is worse when sitting and rolling to the right today and PT currently favors cervicogenic dizziness as no nystagmus seen with rolling and BP is normal in sitting and he has neck pain and dizziness at the same time that is worse with loading the spine. Per nsg, pt to have a head CT d/t confusion. His transfers and gait require CGA for short mobility today. Currently recommend SNF at d/c . Goals Bed Mobility Goal Independent Transfer Goal Independent,Front Wheeled Walker,Four Wheeled Walker Gait Goal Independent,Front Wheel Walker ,Four Wheel Walker Gait Distance 100 Other Goals Pt will ascend and descend 2 steps with LRAD and no more than CGA to allow safe home entrance. Days to Meet Goals 6 Frequency of Treatment Frequency Of Treatment Once a Day Treatment Plan Physical Therapy Treatment Plan Bed Mobility Training,Transfer Training,Gait Training, Therapeutic Exercise,Balance Retraining,Discharge Planning, Hot or Cold Pack,Neuromuscular Re-ed,Coordination Retraining ,Manual Therapy Recommendations To Nursing Amount of Assist Needed 1 Person Assist Discharge Recommendations PT Discharge Recommendations SNF Rehab Transportation Needs at Discharge Private Vehicle,Wheelchair/ Cabulance
[2024-07-14 13:42] LABS: Appearance Urine UA CLEAR; Bilirubin Urine UA 1+ (NEGATIVE); Glucose Urine UA NEGATIVE (Negative); Ketones Urine UA TRACE (NEGATIVE); Leukocyte Esterase Urine UA 1+ (NEGATIVE); Nitrite Urine UA POSITIVE (Negative); Occult Blood Urine UA NEGATIVE (Negative); Protein Urine UA 1+ (Negative)
[2024-07-14 13:44] LABS: Color Urine UA Amber
--- NOTE | 2024-07-14 13:49 | DI.CT.S_ITS ---
PROCEDURE: CT CERVICAL SPINE WO CON INDICATIONS: neck pain/dizziness TECHNIQUE: Noncontrast 3 mm thick sections acquired from the skull base to the T4 level. Sagittal and coronal reformats were then constructed. For radiation dose reduction, the following was used: automated exposure control, adjustment of mA and/or kV according to patient size. COMPARISON: None. FINDINGS: Image quality: Excellent. Bones: No fractures or dislocations. Visualized superior ribs are intact. Multilevel degenerative changes are present. Soft tissues: Prevertebral soft tissues are normal in thickness. No paravertebral hematomas. No apical pneumothoraces. IMPRESSION: No displaced fracture or traumatic subluxation. Dictated by: Celina Mulligan M.D. on 07/14/2024 at 14:50 Approved by: Celina Mulligan M.D. on 07/14/2024 at 14:51
[2024-07-14 13:54] LABS: Ictotest Urine Negative (Negative)
[2024-07-14 14:13] LABS: Bacteria Urine Many (>30); Calcium Oxalate Crystals Urine Occasional; Mucus Urine 2+ (Negative); RBC Urine 5-10/HPF (0-5/HPF); Squamous Epithelial Cell Urine 0-1 /HPF (0-5/HPF); Urine Volume 10mL (spun); WBC Urine 5-10/HPF (0-5/HPF)
[2024-07-14 14:14] LABS: Culture Indicated Urine Specimen Cultured
[2024-07-14 16:02] LABS: Troponin I 0.033 ng/mL (0.01-0.034)
--- NOTE | 2024-07-14 16:22 | CM.DANOTE ---
DPA Note: Patient is an 88 yo M admitted with gen pain and weakness, s/p multiple falls. Patient is confused and spoke with spouse by phone. Patient lives at home with spouse and was prev having multiple falls and spouse manages most of his ADLS. Discussed the possibility for SNF/HHC or caregivers. Spouse states she has not considered this but would like to talk more about his options when she visits tomorrow. [facility] SNF [facility] Insurance: [facility] PCP CHERRI Lee Discharge Planning/Care Management CM Discharge Assessment Start: 07/14/24 16:20 Freq: Status: Active Protocol: Document 07/14/24 16:20 KG (Rec: 07/14/24 16:21 KG [id number]) Discharge Planning Assessment Assigned Battery Mechanic Flavia Moreno Advance Directives? Yes Advance Directives on File Yes History Provided By Patient,Family Member Prior Living Arrangements House Household Members spouse Type of transporation used prior to Relies on Others admit Independent with ADL's No Is patient alert and oriented? No Needs Assistance With Bathing,Grooming,Toileting, Home Chores / Shopping Caregiver for Another No Patient/Family Preference Senior Care Facility,Home with Home Health Discharge Plan Senior Care Facility If patient plan is home with home health No : Has signed face to face form been completed? If patient plan is SNF: Has PASSR been No completed? Medicare Choice List Provided Yes Medicare choice list reviewed on [employer] electronic tablet with Has Agency SNF been contacted No Whiteboard Updated in Patient Room with No name and ext. # of Battery Mechanic
[2024-07-14] MEDS: cefTRIAXone 1,000 MG in SODIUM CHLORIDE 0.9% 100 ML 200 MG IV (17:05)
[2024-07-14] MEDS: PANTOPRAZOLE DR 40 MG TABLET PO (17:05)
[2024-07-14] MEDS: VALSARTAN 80 MG TABLET 40 MG PO (17:05)
[2024-07-14] MEDS: ASPIRIN EC 81 MG TABLET PO (20:29)
[2024-07-14] MEDS: ATORVASTATIN 20 MG TABLET 10 MG PO (20:29)
[2024-07-15 02:00] VITALS: BP 152/80; PULSE 83; RESP 18; TEMP 36.4; O2SAT 99
[2024-07-15] MEDS: ACETAMINOPHEN 325 MG TABLET 650 MG PO ×2 (03:10→16:45)
[2024-07-15 04:00] VITALS: BP 121/61; PULSE 87; RESP 20; TEMP 36.2; O2SAT 96
--- NOTE | 2024-07-15 07:46 | P.PN_ITS ---
Subjective Subjective Date Patient Seen: 07/15/24 Interval history: He is seen in his room here to follow-up the rhabdomyolysis, weakness and dehydration. His urine culture is negative. The chest x-ray does not show any pneumonia. He continues to be intermittently confused and has multiple abrasions/rug burn wiggins on his legs from the time he spent on the floor after falling down. The CK level was 561 with a troponin of 0.036 and an AST of 71. The total bilirubin was 3.0 and the CBC was normal. The head CT was normal. His UA shows nitrites and 5-10 wbc's but the urine culture is negative. He continues to complain of low back pain. Exam Vital Signs (past 8 hours): - 07/15/24 02:00 07/15/24 04:00 Temperature 97.5 F L 97.2 F L Pulse Rate 83 87 Respiratory Rate 18 20 Blood Pressure 152/80 H 121/61 Pulse Oximetry 99 96 Oxygen Flow Rate 0 0 Oxygen Delivery Method Room Air Oxygen Flow Rate 0 Narrative Exam Narrative: He is mildly confused and unaware of that fact. Alert without apparent distress He is requiring standby assistance to walk safely but insists that he does not need it. Heart is regular rate and rhythm without murmur Lungs are clear to auscultation bilaterally Extremities have no ankle edema Skin there are multiple medium to large size bruises, scratches, abrasions (rug schultz) on both legs. Objective Labs 07/14/24 06:33 07/14/24 06:33 Labs: Laboratory Results - last 24 hr 07/14/24 07/14/24 07/14/24 07:29 13:35 15:25 Troponin I 0.033 Urine Color Pamela Urine Appearance Clear Urine pH 6.0 Ur Specific [place] 1.020 Urine Protein 1+ H Urine Glucose (UA) Negative Urine Ketones Trace H Urine Occult Blood Negative Urine Nitrate Positive H Urine Bilirubin 1+ H Ur Bilirubin Confirm Negative Urine Urobilinogen 1.0 Ur Leukocyte Esterase 1+ H Urine RBC 5-10/hpf H Urine WBC 5-10/hpf H Ur Squamous Epith Cells 0-1 /hpf Calcium Oxalate Crystal Occasional H Urine Bacteria Many (>30) H Urine Mucus 2+ H Ur Culture Indicated? Specimen cultured Vol Urine Centrifuged 10ml (spun) SARS-CoV-2 (PCR) Negative Influenza A (RT-PCR) Flu a negative Influenza B (RT-PCR) Flu b negative RSV (PCR) Negative [facility] Medical History CVA (cerebral vascular accident) Hyperlipidemia Pacemaker Social History household members: spouse Smoking Status: Never smoker alcohol intake: current Assessment & Plan Assessment & Plan narrative: 1. Generalized weakness. Admit the patient to medical observation. Likely from dehydration. No clear sign of infection. Hydrated with IVF and PT/OT. Xray of lumbar spine showed no acute findings. Consider MRI. 2. Altered mental status. Baseline unclear. Head CT negative. 3. Rhabdomyolysis. CK 561. Multiple skin wiggins on legs from his prolonged time on the floor. 4. Hyperbilirubinemia. Follow. 5. Leukocytosis. WBC 14. No clear sign of infection. Afebrile. CXR clear and UC negative. 6. Borderline elevated troponin. 7. Dehydration. IVF and encourage PO intake. 8. HLD. Resume home Statin when CK normalized. 9. HTN. Monitor BP and resume home HTN medications. 10. GERD. Continue PPI. 11. DVT PPx SCDs and hep SQ 12. Code status DNR/DNI 13. Low Back Pain. MRI to rule out Epidural Abscess/Discitis. Disposition home in 1-2 days Time-Based Coding :: [TOTAL MINUTES] spent with patient and on the chart (including review of chart, obtaining history, exam, reviewing outside data, placing orders, documenting exam and treatment plan, and counseling patient) on [DATE]. Quality VTE Deep Vein Thrombosis/Pulmonary Embolism Present on Admission: No
[2024-07-15 08:00] VITALS: BP 94/51; PULSE 85; RESP 17; TEMP 36.1; O2SAT 97
[2024-07-15] MEDS: HEPARIN 5,000 UNIT/ML VIAL 5000 UNIT SUBCUT ×2 (08:22→21:14)
--- NOTE | 2024-07-15 10:25 | DI.RAD.S_ITS ---
PROCEDURE: XR CHEST 1V INDICATIONS: Weakness TECHNIQUE: One view of the chest was acquired. COMPARISON: None. FINDINGS: Heart, mediastinum and pulmonary vascular: The heart is mildly enlarged. Dual-chamber pacemaker in satisfactory position without complication. Mediastinum and pulmonary vessels are normal. Lungs: Minor bibasilar atelectasis noted. Pleural spaces: Normal-no effusions or pneumothorax. Bones and soft tissues: Normal IMPRESSION: Minor bibasilar atelectasis. Mild cardiomegaly Dictated by: Jarek Zhang M.D. on 07/16/2024 at 9:42 Approved by: Jarek Zhang M.D. on 07/16/2024 at 9:43
--- NOTE | 2024-07-15 11:30 | OT.IP.EVAL ---
Past Medical History (Last Reviewed 07/14/24 @ 13:07 by David Duke MD) CVA (cerebral vascular accident) Hyperlipidemia Pacemaker Occupational Therapy Inpatient Evaluation/Re-Eval M1 PT/OT-IP Prior Functional Status Start: 07/14/24 09:08 Freq: NEEDED Status: Active Protocol: Document 07/15/24 11:35 CGR (Rec: 07/15/24 11:49 CGR [id number]) Medical Review Prior Functional Status Medical History Reviewed Yes Communication Unsure baseline diet, pt presents with confusion and is not a good historian, he is [place] Mobility and Gait Ambulated in home with rollator and states he just had the one fall where he was down a long time. Per chart and 's reports in chart, pt with more than one fall at home Activities of Daily Living and IADL's Unsure baseline ADLs and pt states that his drives and he does not go to medical appointments Social History Household Members spouse Living Arrangements House Number of Floors (Floors) One Floor Number of Stairs To Enter/Railing? 2 steps and no rail to enter Home Environment Standard Height Toilet,Walk in Shower Home Equipment Four Wheel Walker,Shower Seat without Backrest,Grab Bars In Shower Employment Status Retired M2 OT-IP Current Condition Start: 07/15/24 11:35 Freq: Status: Active Protocol: Document 07/15/24 11:35 CGR (Rec: 07/15/24 11:49 CGR [id number]) Occupational Therapy Current Condition Current Condition Evaluation Date 07/15/24 Treatment Diagnosis recent fall, increased wekness , confusion, UTI? back pain. Diagnosis Onset Date 07/14/24 M3 OT- IP Subjective and Pain Start: 07/15/24 11:35 Freq: Status: Active Protocol: Document 07/15/24 11:35 CGR (Rec: 07/15/24 11:49 CGR [id number]) OT- Subjective Occupational Therapy Visit Type Type Initial Evaluation Visit Start Time 11:07 Visit Stop Time 11:30 Notes Pt sitting up in chair when OT entered. OT Pain Assessment Pain When Pain Assessed At Rest Pain Present Pain Present Pain Reported Location Lower Back Scale Used did not rate Pain Behaviors Facial Grimacing,Guarding, Restlessness Management Techniques Modification of Treatment,Re- positioning M4 OT- IP ADL's Start: 07/15/24 11:35 Freq: Status: Active Protocol: Document 07/15/24 11:35 CGR (Rec: 07/15/24 11:49 CGR [id number]) OT [id number] General Evaluation Self-Feeding Ability Independent Comments OT Self-Feeding Comments not meal time but pt drinks with IND OT ADL-Grooming General Evaluation Grooming Ability Minimal Assistance Areas Needing Assistance Face Washing Comments OT Grooming Comments standing at sink, pt washes face with soap but then has difficulty getting the water to turn on (sensor not twist knob) and provided with wet wash cloth to wipe face. OT ADL-Oral Care Comments Oral Care Comments not performed, pt declines stating that he already brushed his teeth this morning . OT ADL-Dressing General Eval Lower Body Dressing Ability Independent Areas Needing Assistance Socks Comments OT Dressing Comments seated in chair OT ADL-Toileting General Evaluation Toileting Ability Standby Assistance Comments OT Toileting Comments pt attempted to use bathroom but without voiding. OT ADL-Bathing Comments OT Bathing Comments not performed M5 OT- IP IADL's Start: 07/15/24 11:35 Freq: Status: Active Protocol: Document 07/15/24 11:35 CGR (Rec: 07/15/24 11:49 CGR [id number]) OT-Instrumental Activities of Daily Living Deficits IADL Deficits Identified Deficits Home Safety Awareness Awareness of Need for Assistance at Home Decreased Awareness Ability to Problem Solve Emergency Unable to Problem Solve Situations Medication Management Medication Management Comments Concerns regarding pts ability to perform Money Management Money Management Comments Concerns regarding pts ability to perform Meal Preparation Meal Preparation Comments Concerns regarding pts ability to perform Corrosion Control Technician Corrosion Control Technician Comments Concerns regarding pts ability to perform Driving Driving Comments Concerns regarding pts ability to perform M6 OT- IP Functional Cognition Start: 07/15/24 11:35 Freq: Status: Active Protocol: Document 07/15/24 11:35 CGR (Rec: 07/15/24 11:49 CGR [id number]) Cognitive Factors Limiting Selfcare Function Cognitive Ability Level of Alertness Alert Patient Orientation Name,Place,Situation Attention Span Ability Unable to Focus,Unable to Sustain Attention Ability to Follow Commands Able to Follow One Step Commands with Increased Time, Able to Follow One Step Commands with Repetition Cognitive Comments Cognitive Assessment Comments Pt is very confused throughout session. Pt would benefit from SLUMS. OT- Vision and Hearing OT- Hearing Assessment OT- Hearing Assessment Hearing Impaired OT- Vision Assessment Visual Acuity Glasses For Reading Visual Attentiveness WFL Occular Pursuits WFL M7 OT- IP Mobility and Balance Start: 07/15/24 11:35 Freq: Status: Active Protocol: Document 07/15/24 11:35 CGR (Rec: 07/15/24 11:49 CGR [id number]) OT-Transfer Assessment Sit to and From Stand Sit to and from Stand Contact Guard Assistance Transfers Transfer Ability Contact Guard Assistance Technique Transfer Destination Chair,Toilet Transfer Technique Stand Step Pivot Devices Transfer Assistive Devices Gait Belt,Front Wheeled Walker Comments Mobility Comments Mobility around the room and bathroom with CGA and vc for returning to sitting safely OT- Balance Assessment Sitting Balance and Reactions Static Sitting Balance Ability Good Dynamic Sitting Balance Ability Good M8 OT- IP Objective Assessments Start: 07/15/24 11:35 Freq: Status: Active Protocol: Document 07/15/24 11:35 CGR (Rec: 07/15/24 11:49 CGR [id number]) OT Gross Range of Motion Upper Extremity Range of Motion Assessment Within Functional Limits ROM Impairments B shlds 0-90 OT Strength Upper Extremity Strength Assessment Within Functional Limits Comments Strength Comments 4-/5 throughout OT- Coordination Assessment Upper Extremity Finger to Nose Test Within Functional Limits Finger Tapping Test Within Functional Limits OT-Muscle Tone Assessment Muscle Tone WNL Yes OT Sensation Assessment Edema Edema Absent M9 OT- IP Assessment and Plan Start: 07/15/24 11:35 Freq: Status: Active Protocol: Document 07/15/24 11:35 CGR (Rec: 07/15/24 11:49 CGR [id number]) OT Summary Assessment and Plan Potential Rehabilitation Potential Good Analytic Complexity at Evaluation Moderate Summary OT Impairments Pain,Strength,Balance, Functional Cognition, Functional Mobility,Grooming, Dressing,Toileting,Bathing, Toilet Transfers,Shower Transfers,Activity Tolerance Progress Towards Goals Slow Progress due to Cognition Assessment Summary Pt presents as a moderate complexity evaluation s/p admit for fall with generalized weakness and confusion. Pt is mobilizing with CGA but need vc for safety. Pt currently is most impacted by his cognition and his back pain. Pt will benefit from SNF if his cognition doesn't clear more. Unsure of his baseline cognition. Pt will benefit from SLUMS at next session if appropriate. Recommendation at this time is SNF. Goals Self-Feeding Goal Independent Grooming Goal Independent Dressing Goal Independent Toileting Goal Independent Bathing Goal Independent Toilet Transfer Goal Independent Shower Transfer Goal Independent Days to Meet Goals 20 Frequency of Treatment Other frequency 5x a week Treatment Plan OT Treatment Plan ADL Training,Functional Cognition Training,Functional Mobility,Patient/Family Education,Discharge Planning Other Treatment Recommendations and Next SLUMS, Shower, ADLs standing Treatment Focus Discharge Recommendations OT Discharge Recommendations SNF Rehab Transportation Needs at Discharge Private Vehicle
[2024-07-15 12:00] VITALS: BP 127/75; PULSE 86; RESP 22; TEMP 35.8; O2SAT 94
--- NOTE | 2024-07-15 12:13 | CM.DPC ---
Addendum entered by CHERRI Ryan 07/15/24 14:51: ADD: Return call from [facility] stating they can accept the pt but need MD to have a better dx that is billable code otherwise [employer] will deny. If MD is able to add UTI or encephalopathy etc then they can submit this to [employer] for SNF auth. SW updated MD and will wait to determine if clearer dx can be determined beyond weakness, AMS or leukocytosis. PASRR needed if SNF. BF Original Note: DCP Cont: Per MD, pt with UTI and ongoing dizziness and getting chest CT to r/o further medical conditions and anticipate pt could transition from OBS Status to Inpt Status and UR RN will review. Per OT, pt with ongoing confusion and unclear if below pt's baseline cognition and back pain and pt was mostly CGA but needing many verbal cues and feels pt could benefit from SNF if he doesn't clear more in mentation vs 24/7 assist. SW met bedside with pt and explained role and pt somewhat confused and agreeable to calling spouse bedside to see when she will arrive to further discuss discharge plans. Spouse about ready to leave their house and should be bedside within the next half hour. Plan: SW to meet with spouse around lunchtime to discuss HH vs SNF at d/c. CHERRI Ryan
--- NOTE | 2024-07-15 14:49 | DIET.CONS ---
Dietary Consultation Note Admission Date: 07/15/2024 13:08 Assessment: 88 y M admitted for generalized weakness and after fall. RD screened for low MNA. Met with pt and family at bedside. Report decrease in appetite over 2 weeks, with diet recall of 2 eggo waffles and a few bites of food in evening (i.e soups/dinners). Tray off to side with around 25% of the chicken/rice/vegs eaten and 100% of yogurt eaten. Pt family report he tolerates softer foods better and he does chocolate Boost at home sometimes. Family reports weight of 230 lb (104.55 kg) over the summer of 2023 at his last PCP visit. Family has not noticed any weight changes. Family interested in getting another weight due to most recent chart weight being 200 lb. Pt in recliner. Set up bed scale and informed RN for when pt gets back to bed. Asked pt permission for nutrition focused physical exam and explained. Pt directed conversation elsewhere x2 attempts. Postponed. Ht: 187.96 cm Wt: 90.718 kg BMI: 25.7 UBW: 104.55 kg over the summer 2023 (-13% weight loss within 7 months, non-severe) Last BM: 07/10/24 (07/14/24 07:45) MNA: 8 Byron Score: 19 Diet: 07/14/24 Breakfast Heart Healthy Diet Diet Modifications: Nutrition Percent Meal Consumed 50% 07/15/24 14:00 Percent Meal Consumed 25% 07/15/24 09:34 Percent Meal Consumed 75% 07/14/24 17:44 Percent Meal Consumed 25% 07/14/24 13:50 Percent Meal Consumed 0 07/14/24 08:43 Labs: RBC 4.76 X10^6/uL (4.5-5.9) 07/14/24 06:33 Hgb 13.6 g/dL (13.5-17.5) 07/14/24 06:33 Hct 39.1 % (41-53) L 07/14/24 06:33 Creatinine 0.93 mg/dL (0.66-1.25) 07/14/24 06:33 Nutrition Diagnosis: Inadequate oral intakes aeb lack of appetite aeb <50% of estimated energy intake for 2 weeks (severe) Interventions: 1. ONS BID 2. Discussed best tolerated food options 3. Coordination for softer foods EER: 2250 kcals (25 kcals/kg per BMI) 90 g protein (1g/kg per age) Monitoring/Evaluations: PO intakes, ONS tolerance Electronically Signed by: Ni Brooks 07/15/24 14:49 Clinical Dietitian [address] [address]
--- NOTE | 2024-07-15 15:10 | PT.IPTN ---
Current Diagnoses Urinary tract infection, site not specified (07/15/24) Physical Therapy Treatment Note M2 PT-IP Current Condition Start: 07/14/24 09:08 Freq: NEEDED Status: Active Protocol: Document 07/14/24 13:03 MB (Rec: 07/14/24 13:40 MB [id number]) Physical Therapy Current Condition Current Condition Evaluation Date 07/14/24 Treatment Diagnosis Falls, pain, confusion M3 PT-IP Subjective Start: 07/14/24 09:08 Freq: NEEDED Status: Active Protocol: Document 07/15/24 14:57 KJ (Rec: 07/15/24 15:06 KJ [id number]) Subjective Physical Therapy Visit Type Type Treatment Note Visit Start Time 14:23 Visit Stop Time 14:57 Physical Therapy Visit Comments Patient Comments C/o neck/upper back pain, even with gentle touching of that area. Pt reports he fell once (only) at home while lying in bed, when he fell south to north. Therapy Pain Assessment Pain When Pain Assessed At Rest Pain Present Pain Present Pain Reported Location Neck and LB Pain Behaviors Wincing Pain Management Techniques Distraction M4 PT-IP Mobility and Gait Start: 07/14/24 09:08 Freq: NEEDED Status: Active Protocol: Document 07/15/24 14:57 KJ (Rec: 07/15/24 15:06 KJ [id number]) PT-Transfer Assessment Sit to and From Stand Sit to and from Stand Minimal Assistance Equipment Transfer Assistive Device Gait Belt,Front Wheeled Walker Comments Mobility Comments Sit to stand w/min assist + verbal cuing for safety. Tends to move quickly. Gait Assessment Gait Gait Assistance Required: Minimum Assistance Distance (Feet) 15 Assistive Devices Assistive Device Gait Belt,Front Wheeled Walker Gait Deviations General Gait Pattern Decreased Stride Length,Narrow Based Gait Factors Limiting Gait Function Factors Limiting Gait Function Pain Comments Gait Comments decreased safety awareness PT-Balance Assessment Sitting Balance and Reactions Static Sitting Balance Ability Good Dynamic Sitting Balance Ability Good Standing Balance and Reactions Static Standing Balance Ability Fair Dynamic Standing Balance Ability Fair M5 PT-IP Objective Assessments Start: 07/14/24 09:08 Freq: NEEDED Status: Active Protocol: Document 07/15/24 14:57 KJ (Rec: 07/15/24 15:06 KJ [id number]) Orientation Orientation/Cognition Level of Alertness Confusional State Orientation Name,Birthday Language Function Ability Hard of Hearing Safety Awareness Decreased Safety Awareness Comments Better hearing in L ear. Very pleasant, joking, laughing M6 PT-IP Treatment Start: 07/14/24 09:08 Freq: NEEDED Status: Active Protocol: Document 07/15/24 14:57 KJ (Rec: 07/15/24 15:06 KJ [id number]) Physical Therapy Treatment Exercises Exercises Seated Knee Flexion/Extension, Shoulder Flexion Education Education Provided Safety Other Treatments Other Treatment Performed Instructed pt and family on safety during mobility. Discussed safety issues at home. Pt with acute onset confusion moves quickly with decreased awareness of safety issues. Ability to ambulate improved since yesterday. M7 PT-IP Assessment and Plan Start: 07/14/24 09:08 Freq: NEEDED Status: Active Protocol: Document 07/15/24 15:09 KJ (Rec: 07/15/24 15:09 KJ [id number]) PT Summary Assessment and Plan Discharge Recommendations PT Discharge Recommendations SNF Rehab
--- NOTE | 2024-07-15 15:40 | DI.CT.S_ITS ---
PROCEDURE: CT LUMBAR SPINE W CON INDICATIONS: Low Back Pain with Falling and Infection TECHNIQUE: After the administration of intravenous Isovue contrast, 3 mm thick sections acquired through the levels of interest. Sagittal and coronal reformats were then constructed. For radiation dose reduction, the following was used: automated exposure control. COMPARISON: [facility], CR, XR CHEST 1V, 07/15/2024, 10:40. [facility], CR, XR LUMBAR SPINE 2-3V, 07/14/2024, 3:17. FINDINGS: Image quality: Excellent. Bones: No acute fracture is seen. There is minimal retrolisthesis at L2-L3 and L3-L4. Generalized moderate to prominent lumbar spine degenerative change can be seen. Soft tissues: There is severe right-sided hydronephrosis. There is a series of obstructing stones within the mid to distal right ureter, measuring 3 cm craniocaudal, when measured together. The stones measure greater than 1000 Hounsfield units. A nonobstructing left-sided sacral in calculus is seen that measures nearly 2 cm. Atherosclerotic calcification is noted. Pacer leads are seen. No soft tissue abscess can be seen. IMPRESSION: No maude acute lumbar abnormality is seen. Generalized degenerative changes are seen. No soft tissue abscess is identified. If it would be helpful for clinical management decision making, please consider a dedicated, scheduled lumbar spine MRI for further evaluation (assuming that there is no contraindication from the pacer device). Right-sided ureteral stones seen, with severe right-sided hydronephrosis noted. Dictated by: Chris Hagen M.D. on 07/15/2024 at 15:50 Approved by: Chris Hagen M.D. on 07/15/2024 at 15:53
[2024-07-15 16:00] VITALS: BP 127/75; PULSE 86; RESP 23; TEMP 35.8; O2SAT 94
[2024-07-15] MEDS: DEXTROSE 5%-0.45% NS 1,000 ML 100 ML IV (16:45)
[2024-07-15] MEDS: cefTRIAXone 1,000 MG in SODIUM CHLORIDE 0.9% 100 ML 200 MG IV (16:45)
[2024-07-15 20:29] VITALS: BP 134/86; PULSE 74; RESP 19; TEMP 37; O2SAT 96
[2024-07-15] MEDS: ATORVASTATIN 20 MG TABLET 10 MG PO (21:14)
[2024-07-15] MEDS: ASPIRIN EC 81 MG TABLET PO (21:15)
[2024-07-16] VITALS: BP 136/84; PULSE 80; RESP 19; TEMP 37; O2SAT 96
[2024-07-16 04:00] VITALS: BP 154/86; PULSE 94; RESP 18; TEMP 37; O2SAT 97
[2024-07-16] MEDS: ACETAMINOPHEN 325 MG TABLET 650 MG PO ×2 (05:01→12:02)
[2024-07-16 06:13] LABS: Alanine Aminotransferase 34 IU/L (<50); Albumin 3.4 g/dL (3.5-5.0); Albumin Globulin Ratio 1.2 (1.0-2.8); Alkaline Phosphatase 75 U/L (38-126); Aspartate Aminotransferase 42 IU/L (17-59); BUN Creatinine Ratio 9.3 (6-22); Bilirubin Total 1.6 mg/dL (0.2-1.3); Blood Urea Nitrogen 8 mg/dL (9-20); Calcium 8.7 mg/dL (8.4-10.2); Carbon Dioxide 23 mmol/L (22-32); Chloride 108 mmol/L (98-107); Estimated Glomerular Filt Rate > 60 mL/min (>60); Globulin 2.9 g/dL (1.7-4.1); Glucose 99 mg/dL (80-110); HEMOLYSIS < 15 (0-50); Potassium 3.6 mmol/L (3.4-5.1); Sodium 138 mmol/L (137-145); Total Protein 6.3 g/dL (6.3-8.2)
[2024-07-16 06:21] LABS: Creatine Kinase 91 U/L (55-170)
--- NOTE | 2024-07-16 07:46 | PM.PN.1 ---
Subjective Subjective Date Patient Seen: 07/16/24 Exam Vital Signs (past 8 hours): - 07/16/24 00:00 07/16/24 04:00 Temperature 98.6 F 98.6 F Pulse Rate 80 94 H Respiratory Rate 19 18 Blood Pressure 136/84 154/86 H Pulse Oximetry 96 97 Oxygen Flow Rate 0 0 Oxygen Delivery Method Room Air Oxygen Flow Rate 0 Objective Labs 07/14/24 06:33 07/16/24 05:01 Labs: Laboratory Results - last 24 hr 07/16/24 05:01 Sodium 138 Potassium 3.6 Chloride 108 H Carbon Dioxide 23 BUN 8 L Creatinine 0.86 Estimated GFR > 60 BUN/Creatinine Ratio 9.3 Glucose 99 Calcium 8.7 Total Bilirubin 1.6 H AST 42 ALT 34 Alkaline Phosphatase 75 Total Creatine Kinase 91 D Total Protein 6.3 Albumin 3.4 L Globulin 2.9 Albumin/Globulin Ratio 1.2 [facility] Medical History CVA (cerebral vascular accident) Hyperlipidemia Pacemaker Social History household members: spouse Smoking Status: Never smoker alcohol intake: current Assessment & Plan Assessment & Plan narrative: 1. Generalized weakness. Admit the patient to medical observation. Likely from dehydration. No clear sign of infection. Hydrated with IVF and PT/OT. Xray of lumbar spine showed no acute findings. Consider MRI. 2. Altered mental status. Baseline unclear. Head CT negative. 3. Rhabdomyolysis. CK 561. Multiple skin wiggins on legs from his prolonged time on the floor. 4. Hyperbilirubinemia. Follow. 5. Leukocytosis. WBC 14. No clear sign of infection. Afebrile. CXR clear and UC negative. 6. Borderline elevated troponin. 7. Dehydration. IVF and encourage PO intake. 8. HLD. Resume home Statin when CK normalized. 9. HTN. Monitor BP and resume home HTN medications. 10. GERD. Continue PPI. 11. DVT PPx SCDs and hep SQ 12. Code status DNR/DNI 13. Low Back Pain. MRI to rule out Epidural Abscess/Discitis. Disposition home in 1-2 days Time-Based Coding :: [TOTAL MINUTES] spent with patient and on the chart (including review of chart, obtaining history, exam, reviewing outside data, placing orders, documenting exam and treatment plan, and counseling patient) on [DATE]. Quality VTE Deep Vein Thrombosis/Pulmonary Embolism Present on Admission: No
[2024-07-16 08:00] VITALS: BP 112/70; PULSE 87; RESP 25; TEMP 35.7; O2SAT 96
--- NOTE | 2024-07-16 08:39 | PM.DS.1 ---
History of Present Illness History of Present Illness Date Patient Seen: 07/16/24 Time Patient Seen: 08:39 Chief complaint: gen. pain Narrative: 88 year old male with past medicla history of HLD, GERD and HTN presents with a fall and generalized weakness. Per report, the patient had a fall a few days ago. The patient however didn't come into the ER to be evaluated. However, this evening, the patient felt weak in his legs and lowered himself down to the ground. The patient denies any fall within the last 1-2 days. The patient however did have some lower back pain since his last fall a few days ago. The patient's also states that the patient has decrease oral intake of food and fluid over the last few days as well. Otherwise, the patient denies any fever, chills, nausea, vomiting, diarrhea, chest pain or shortness of breath. In our ER, the patient was hemodynamically stable. WBC was 14 but no other significant lab. CK 500s and trops were 0.33 to 0.36. EKG shows no clear sign of acute ischemia. CXR clear. Lumbar xray shows no acute findings. UA pending. Due to sign of dehydration and generalized weakness, our ER physician requested admission for IVF and PT/OT. Interval history: The patient is calm, appropriate but appears confused, unable to state his location, day, date, recent holidays or the year. He states he has not seen a doctor in many years. Discharge Providers Provider Date of admission: 07/15/24 13:08 Discharge Date: 07/16/24 Primary care physician: CARMINA Perez Consults: 07/14/24 06:09 Consult to Occupational Therapy Evaluate & Treat Comment: Physician Instructions: Evaluate and treat Consult to Physical Therapy Evaluate & Treat Comment: Physician Instructions: Evaluate and Treat Discharge provider: Keiry Cardoso MD Summary Hospital Course Discharge Diagnosis: 1. Generalized weakness. Likely from dehydration. No clear sign of infection. Hydrated with IVF and PT/OT. Xray of lumbar spine showed no acute findings. CT Lumbar Spine (has Pacer so no MRI done) showed no signs of discitis or epidural abscess to explain the low back pain complaint. 2. Altered mental status. Baseline dementia levels unclear. Head CT negative. 3. Rhabdomyolysis. CK 561. Multiple skin wiggins on legs from his prolonged time on the floor. 4. Hyperbilirubinemia. Bilirubin back down to 1.6 at discharge. 5. Leukocytosis. WBC 14. No clear sign of infection. Afebrile. CXR clear and UC negative. CT Lumbar Spine without signs of infection. 6. Borderline elevated troponin. 7. Dehydration. IVF and encourage PO intake. 8. HLD. Resume home Statin. 9. HTN. Resume home HTN medications. 10. GERD. Continue PPI. 11. Severe Right Hydronephrosis and Ureteral Stones Code status DNR/DNI Hospital Course: He came into the hospital after becoming weak, falling down and being unable to get up for a prolonged period of time. His CK levels were elevated and he had multiple abrasions on his legs. The bilirubin level has come back down to 1.6. The CK has dropped down to 91. He complained of low back pain so underwent a CT of the lumbar spine which shows severe right hydronephrosis and a series of stones 3 cm in length in the right mid ureter. His urine culture was negative and he had no specific symptoms of the kidney stone/hydronephrosis so will need to be referred from the long term facility to urology as soon as possible. Status at Discharge Cognitive/behavioral status at discharge: at baseline, confused Functional status at discharge: uses cane/walker Overall status at discharge: patient is not back to baseline Exam Vital Signs (past 8 hours): - 07/16/24 04:00 07/16/24 08:00 Temperature 98.6 F 96.2 F L Pulse Rate 94 H 87 Respiratory Rate 18 25 H Blood Pressure 154/86 H 112/70 Pulse Oximetry 97 96 Oxygen Flow Rate 0 0 Oxygen Delivery Method Room Air Oxygen Flow Rate 0 Narrative Exam Narrative: He is alert and oriented. No apparent distress. Heart is regular rate and rhythm without murmur Lungs are clear to auscultation bilaterally Extremities have no ankle edema He is quite hard of hearing. There is no right abdominal pain. No right flank pain. No tenderness in those areas. Objective Labs 07/14/24 06:33 07/16/24 05:01 Labs: Laboratory Results - last 24 hr 07/16/24 05:01 Sodium 138 Potassium 3.6 Chloride 108 H Carbon Dioxide 23 BUN 8 L Creatinine 0.86 Estimated GFR > 60 BUN/Creatinine Ratio 9.3 Glucose 99 Calcium 8.7 Total Bilirubin 1.6 H AST 42 ALT 34 Alkaline Phosphatase 75 Total Creatine Kinase 91 D Total Protein 6.3 Albumin 3.4 L Globulin 2.9 Albumin/Globulin Ratio 1.2 PFSH Medical History CVA (cerebral vascular accident) Hyperlipidemia Pacemaker Social History household members: spouse Smoking Status: Never smoker alcohol intake: current Discharge Plan Discharge Plan Patient Disposition: SNF Transfer to: [facility] Under care of provider: Facility Journalism Teacher Provider Discharge Comment: He will need Urology referral JEFFERY for evaluation and management of severe Right sided Hydronephrosis caused by kidney stones. Discharge orders & Medications Prescriptions: New acetaminophen 325 mg Tablet 650 mg PO Q6H PRN (Reason: Fever/Mild Pain (1-3)) Qty: 30 0RF Continued valsartan 40 mg tablet 40 mg PO DAILY pantoprazole 40 mg tablet,delayed release (DR/EC) 40 mg PO DAILY atorvastatin 10 mg Tablet 10 mg PO QPM ascorbic acid (vitamin C) [Vitamin C] 500 mg Tablet 500 mg PO DAILY Adults Multivitamin 18 mg iron-400 mcg-25 mcg Tablet 1 tab PO DAILY cyanocobalamin (vitamin B-12) 3,000 mcg Capsule 3,000 mcg PO DAILY magnesium citrate 100 mg Capsule 600 mg PO DAILY Rx Instructions: takes 1 tab of 600mg aspirin 81 mg Capsule 81 mg PO BEDTIME Follow up/Referrals: Kelle Ordonez ARNP [Primary Care Provider] - Diet/Activity/Treatments Diet: Regular Liquid consistency: Normal/Thin Food texture: Regular [facility] Reason for rehabilitation: Recovery r/t decondition Rehab type: Physical therapy and Occupational therapy Visit Report/Discharge Packet Stand Alone Forms: Patient Portal/API Discharge Data Primary Care Provider: Kelle Ordonez Quality VTE Deep Vein Thrombosis/Pulmonary Embolism Present on Admission: No
--- NOTE | 2024-07-16 09:04 | CM.DPC ---
DCP Discharge SNF Per MD, pt is medically stable to d/c to lower level of care SNF and no identified barriers to discharge and orders placed. FRANK confirmed with [facility] admissions that [employer] auth obtained yesterday evening and they can accept today and will work on transport time for w/c van. SW called spouse as pt with confusion from rhabdo and updated on above and she remains in agreement with discharge plan to [facility] today and she will bring him some clothes for SNF. Updated fence supervisor, CALVIN, RN and provided number to call report. CHARISSE Valentin kindly faxing signed med list, no scripts, MD KATHY orders and d/c summ to [facility] to review. Plan: patient to d/c to [facility] SNF rehab today via w/c van (waiting on transport time) before safe return home with spouse. CHERRI Ryan
[2024-07-16] MEDS: CYANOCOBALAMIN (VITAMIN B-12) 500 MCG TABLET 3000 MCG PO (10:16)
[2024-07-16] MEDS: ASCORBIC ACID 500 MG TABLET PO (10:16)
[2024-07-16] MEDS: PANTOPRAZOLE DR 40 MG TABLET PO (10:17)
[2024-07-16] MEDS: MULTIVITAMIN 1 TABLET 1 TAB PO (10:17)
[2024-07-16] MEDS: HEPARIN 5,000 UNIT/ML VIAL 5000 UNIT SUBCUT (10:17)
[2024-07-16] MEDS: FLEETS ENEMA 1 EACH PR (12:03)
[2024-07-16 13:00] VITALS: BP 121/72; PULSE 68; RESP 18; TEMP 36.8; O2SAT 97
== END 2024-07-16 13:30 ==
LOC: ED 03:55 → AC 06:05
PROVIDERS: Family Medicine; Internal Medicine; Admitting Provider Internal Medicine; Emergency Provider Emergency Medicine; PCP Internal Medicine; Referring Provider Emergency Medicine; Visit Provider Internal Medicine
DX: R53.1 Weakness (principal); M54.50 Low back pain, unspecified; E78.5 Hyperlipidemia, unspecified; I10 Essential (primary) hypertension; K21.9 Gastro-esophageal reflux disease without esophagitis; R41.82 Altered mental status, unspecified; R79.89 Other specified abnormal findings of blood chemistry; S80.812A Abrasion, left lower leg, initial encounter; S80.811A Abrasion, right lower leg, initial encounter; M62.82 Rhabdomyolysis; E80.6 Other disorders of bilirubin metabolism; D72.829 Elevated white blood cell count, unspecified; F03.90 Unspecified dementia, unspecified severity, without behavioral disturbance, psychotic disturbance, mood disturbance, and anxiety; E86.0 Dehydration; N13.2 Hydronephrosis with renal and ureteral calculous obstruction; W18.30XA Fall on same level, unspecified, initial encounter; Z95.0 Presence of cardiac pacemaker; Z66 Do not resuscitate
CPT/HCPCS: 0241U; 36415; 70450; 71045; 72100; 72125; 72132; 80048; 80053; 81001; 82550; 83690; 84484; 85025; 86694; 87086; 93005; 96361; 96365; 96372; 96375; 97116; 97162; 97166; 97535; 99284; G0378; J0696; J1171; J1644; J1885; Q9967

== ENCOUNTER 2024-08-06 19:51 | Inpatient (IN) | payer OTHER, SELFPAY ==
[2024-07-14 07:45] VITALS: BMI 25.7
[2024-08-06] VITALS (10 sets, daily range): BP systolic 112–154; BP diastolic 55–77; PULSE 67–178; RESP 21–31; TEMP 37.3; O2SAT 87–98; BMI 26.2
--- NOTE | 2024-08-06 20:16 | DI.RAD.S_ITS ---
PROCEDURE: XR CHEST 1V INDICATIONS: hypoxia TECHNIQUE: One view of the chest was acquired. COMPARISON: [facility], , XR CHEST 1V, 07/15/2024, 10:40. FINDINGS: Surgical changes and devices: Cardiac pacemaker is seen with pulse generator in the left chest. Lungs and pleura: Hazy opacities in the lateral right lung. Mildly low lung volumes. No significant pleural effusion or pneumothorax is seen. Mediastinum: Mediastinal contours appear normal. Heart size is normal. Bones and chest wall: No suspicious bony lesions. Overlying soft tissues appear unremarkable. IMPRESSION: Hazy opacities in the right lung suspicious for edema or pneumonia, including with viral or atypical agents. Approved by: Piero Bravo M.D. on 08/06/2024 at 20:53
--- NOTE | 2024-08-06 20:16 | EKG_ITS ---
[address] [address] Test Date: 2024-08-06 Pat Name: Jayy Beckman Department: Room: Gender: Male Construction Field Engineer: NEHA : [id number] Requested By: Order Number: [id number] Reading MD: Giovanni Mendez Measurements Intervals Campus Rate: 104 P: 30 GA: 238 QRS: -20 QRSD: 92 T: 264 QT: 314 QTc: 412 Interpretive Statements Sinus tachycardia with 1st degree AV block T wave abnormality, consider lateral ischemia Electronically Signed On 08-07-2024 23:45:17 PST by Giovanni Mendez
--- NOTE | 2024-08-06 20:19 | DI.CT.S_ITS ---
PROCEDURE: CT HEAD/BRAIN WO CON INDICATIONS: fall, confused TECHNIQUE: Noncontrast 4.5 mm thick angled axial sections acquired from the foramen magnum to the vertex, with coronal and sagittal reformats. For radiation dose reduction, the following was used: automated exposure control, adjustment of mA and/or kV according to patient size. COMPARISON: [facility], CT, CT HEAD/BRAIN WO CON, 07/14/2024, 13:54. [facility], CT, CT HEAD/BRAIN WO CON, 03/07/2019, 14:28. FINDINGS: Image quality: Diagnostic. CSF spaces: Basal cisterns are patent. No extra-axial fluid collections. The ventricles are symmetric in size and shape. Brain: No acute intracranial hemorrhage or mass effect. There is cerebral volume loss for age, with resultant ventricular and sulcal prominence. There are periventricular and deep white matter chronic small vessel ischemic changes. There is intracranial internal carotid artery atherosclerosis. Skull and face: Calvarium and visualized facial bones appear intact, without suspicious lesions. Sinuses: Mild mucosal thickening in the maxillary sinuses bilaterally and in the bilateral anterior ethmoid air cells. The remaining visualized paranasal sinuses and the mastoid air cells are clear. IMPRESSION: 1. No acute intracranial pathology. 2. Moderate chronic microvascular ischemic changes and generalized parenchymal volume loss. Approved by: Piero Bravo M.D. on 08/06/2024 at 20:58
--- NOTE | 2024-08-06 20:19 | DI.CT.S_ITS ---
PROCEDURE: CT CERVICAL SPINE WO CON INDICATIONS: fall, confused TECHNIQUE: Noncontrast 3 mm thick sections acquired from the skull base to the T4 level. Sagittal and coronal reformats were then constructed. For radiation dose reduction, the following was used: automated exposure control, adjustment of mA and/or kV according to patient size. COMPARISON: [facility], CT, CT CERVICAL SPINE WO CON, 07/14/2024, 13:54. [facility], CT, CT CERVICAL SPINE WO CON, 03/07/2019, 14:28. FINDINGS: Image quality: Images are mildly degraded by patient motion. Diagnostic information is obtained. Bones: No acute fractures or dislocations. Visualized superior ribs are intact. Multilevel disc space narrowing and degenerative endplate changes. Multilevel uncovertebral joint and facet hypertrophy. Soft tissues: Prevertebral soft tissues are normal in thickness. No paravertebral hematomas. No apical pneumothoraces. Pacemaker leads are partially imaged. IMPRESSION: No acute displaced fracture or traumatic subluxation. Approved by: Piero Bravo M.D. on 08/06/2024 at 21:00
[2024-08-06 20:39] LABS: Hemoglobin 15.1 g/dL (13.5-17.5); Mean Corpuscular HGB Conc 34.3 % (30-36); Mean Corpuscular Volume 81.7 fL (80-100); Platelet Count 242 X10^3/uL (150-400); Red Blood Cell Count 5.38 X10^6/uL (4.5-5.9); Red Cell Distribution Width 14.7 % (11.6-14.8); White Blood Cell Count 16.2 X10^3/uL (4.5-11.0)
[2024-08-06 20:42] LABS: Lactate (Lactic Acid) 2.4 mmol/L (0.7-2.1)
[2024-08-06 20:43] LABS: Add Manual Diff / Slide Review YES; Alanine Aminotransferase 28 IU/L (<50); Albumin Globulin Ratio 1.3 (1.0-2.8); Alkaline Phosphatase 88 U/L (38-126); Aspartate Aminotransferase 27 IU/L (17-59); Bilirubin Total 3.3 mg/dL (0.2-1.3); Blood Urea Nitrogen 21 mg/dL (9-20); Carbon Dioxide 21 mmol/L (22-32); Chloride 107 mmol/L (98-107); Creatine Kinase < 20 U/L (55-170); Estimated Glomerular Filt Rate > 60 mL/min (>60); Globulin 3.1 g/dL (1.7-4.1); Glucose 96 mg/dL (80-110); HEMOLYSIS 20 (0-50); Sodium 138 mmol/L (137-145); Total Protein 7.1 g/dL (6.3-8.2)
[2024-08-06 20:54] LABS: Neutrophils Absolute Manual 10692 /uL (3000-5900); Total Cells Counted 100
[2024-08-06 20:55] LABS: NT-proBNP (BNP-Adult 18+) 882 pg/mL (<450); RBC Morphology Normal Morphology; Troponin I 0.044 ng/mL (0.01-0.034)
--- NOTE | 2024-08-06 20:58 | ED_ITS ---
HPI - Fall General Chief Complaint: Fall Stated Complaint: GLF Time Seen by Provider: 08/06/24 20:16 Source: EMS Mode of arrival: EMS History of Present Illness HPI Narrative: Patient is a 88-year-old male history of hyperlipidemia GERD hypertension presenting today with a ground level fall and hypoxia. He was admitted here July 14 through the for generalized weakness, he was discharged to [facility]. His baseline mental status is on known but there is documentation of confusion questionable dementia during admission. He was discharged from the rehab facility 2 days ago and has a diagnosis of COVID from a couple days ago he was overall extremely weak and hypoxic. Related Data Home Medications Medication Instructions Recorded Confirmed atorvastatin 10 mg tablet 10 mg PO QPM 05/28/18 07/14/24 pantoprazole 40 mg tablet,delayed 40 mg PO DAILY 04/19/23 07/14/24 release valsartan 40 mg tablet 40 mg PO DAILY 04/19/23 07/14/24 ascorbic acid (vitamin C) 500 mg 500 mg PO DAILY 07/14/24 07/14/24 tablet (Vitamin C) aspirin 81 mg capsule 81 mg PO BEDTIME 07/14/24 07/14/24 cyanocobalamin (vitamin B-12) 3,000 mcg PO DAILY 07/14/24 07/14/24 3,000 mcg capsule magnesium citrate 100 mg capsule 600 mg PO DAILY 07/14/24 07/14/24 multivit with minerals-iron 18 1 tab PO DAILY 07/14/24 07/14/24 mg-folic ac 400 mcg-vit K 25 mcg tablet (Adults Multivitamin) Previous Rx's Medication Instructions Recorded acetaminophen 325 mg tablet 650 mg (2 x 325 mg) PO Q6H PRN 07/16/24 Fever/Mild Pain (1-3) #30 tabs Allergies Allergy/AdvReac Type Severity Reaction Status Date / Time morphine AdvReac Verified 03/26/23 10:46 Patient History Medical History Pacemaker CVA (cerebral vascular accident) Hyperlipidemia Social History household members: spouse Smoking Status: Never smoker alcohol intake: current Smoking Status: Never smoker alcohol intake frequency: holidays/special occasions only Exam Initial Vital Signs Initial Vital Signs: Vital Signs Pulse Rate 67 08/06/24 19:53 Blood Pressure 128/70 08/06/24 19:53 Pulse Oximetry 93 08/06/24 19:53 GENERAL: Confused 88-year-old male HEENT: Head atraumatic,EOMI, pupils reactive, face symmetric, moist mucous membranes CARDIOVASCULAR: Regular rate and rhythm without murmurs, rubs or gallops. RESPIRATORY: Breath sounds equal bilaterally, no wheezes rales or rhonchi. ABDOMEN: Soft, nontender. Normoactive bowel sounds all 4 quadrants. No guarding or rebound. EXTREMITIES: Normal range of motion, no clubbing or edema. Neurovascularly intact NEUROLOGICAL: Alert confused 88-year-old male no facial droop no slurring of speech moving all extremities SKIN: Warm, dry, no laceration, no petechiae, no rashes or lesions. Course Orders Ordered: ED Orders 08/06/24 20:10 Urinalysis and Microscopic Stat Urine Culture Stat 08/06/24 20:16 XR chest 1V Stat EKG-12 Lead Stat 08/06/24 20:17 Complete Blood Count AUTO DIFF Stat Comprehensive Metabolic Panel Stat Lactate (Lactic Acid) Stat NT-proBNP (BNP-Adult 18+) Stat Procalcitonin Stat Troponin & CK Cardiac Panel Stat 08/06/24 20:19 CT cervical spine wo con Stat CT head/brain wo con Stat 08/06/24 21:01 Blood Culture Stat 08/06/24 21:22 CT angio chest PE protocol Stat 08/06/24 22:21 Troponin I Stat Acetaminophen (Acetaminophen 325 Mg Tablet) 650 mg PO Q6H PRN PRN Reason: Fever/Mild Pain (1-3) Albuterol (Albuterol 2.5 Mg/3 Ml Neb (Adult)) 2.5 mg INH [id number] PRN PRN Reason: Dyspnea Ascorbic Acid (Ascorbic Acid 500 Mg Tablet) 500 mg PO DAILY YARY Aspirin (Aspirin 81 Mg Chew Tab) 81 mg PO BEDTIME YARY Atorvastatin Calcium (Atorvastatin 20 Mg Tablet) 10 mg PO BEDTIME YARY Benzonatate (Benzonatate 100 Mg Capsule) 100 mg PO TID PRN PRN Reason: Cough Bisacodyl (Bisacodyl 5 Mg Tablet) 10 mg PO DAILY PRN PRN Reason: Constipation Calcium Carbonate (Calcium Carbonate 500 Mg Tab) 1,000 mg PO Q4HR PRN PRN Reason: Dyspepsia Cyanocobalamin (Cyanocobalamin (Vitamin B-12) 500 Mcg Tablet) 3,000 mcg PO DAILY [facility] Hydralazine HCl (Hydralazine 20 Mg/Ml Vial) 10 mg IV Q6HR PRN PRN Reason: SBP>= 160 or DBP >=110 Piperacillin Sod/Tazobactam (Sod 3.375 gm/ Sodium Chloride) 100 mls @ 25 mls/hr IV Q8H [facility] Melatonin (Melatonin 3 Mg Tablet) 9 mg PO BEDTIME PRN PRN Reason: insomnia Multivitamins (Multivitamin 1 Tablet) 1 tab PO DAILY [facility] Naloxone HCl (Naloxone 0.4 Mg/Ml Vial) 0.2 mg IV Q2MIN PRN PRN Reason: Opiate Reversal Non-Formulary Medication (Magnesium Citrate) 600 mg PO DAILY [facility] Ondansetron HCl (Ondansetron 4 Mg/2 Ml Inj) 4 mg IV Q8HR PRN PRN Reason: Nausea And Vomiting Pantoprazole Sodium (Pantoprazole Dr 40 Mg Tablet) 40 mg PO DAILY [facility] Valsartan (Valsartan 80 Mg Tablet) 40 mg PO DAILY [facility] Discontinued Medications Piperacillin Sod/Tazobactam (Sod 4.5 gm/ Sodium Chloride) 100 mls @ 200 mls/hr IV NOW ONE Stop: 08/06/24 21:23 Last Infusion: 08/06/24 22:46 Dose: Infused Documented By: Admin: 08/06/24 22:16 Dose: 200 mls/hr Documented By: NORA Lorazepam (Lorazepam 2 Mg/Ml Inj) 0.5 mg IV NOW ONE Stop: 08/06/24 21:28 Last Admin: 08/06/24 21:38 Dose: 0.5 mg Documented By: NORA Vital Signs Vital signs: Vital Signs - 8 hr 08/06/24 19:53 08/06/24 19:53 08/06/24 19:57 Temperature 99.2 F Pulse Rate 67 107 H Respiratory Rate 24 Blood Pressure 128/70 128/70 Pulse Oximetry 93 87 L Oxygen Delivery Method Room Air Oxygen Flow Rate 08/06/24 20:00 08/06/24 20:00 08/06/24 21:00 Temperature Pulse Rate 104 H 115 H Respiratory Rate 28 H 30 H Blood Pressure 114/58 L Pulse Oximetry 94 94 Oxygen Delivery Method Nasal Cannula Oxygen Flow Rate 4 08/06/24 21:00 08/06/24 21:30 08/06/24 21:30 Temperature Pulse Rate 112 H Respiratory Rate 28 H Blood Pressure 131/56 L 154/68 H Pulse Oximetry 97 Oxygen Delivery Method Oxygen Flow Rate 08/06/24 21:56 08/06/24 21:56 08/06/24 22:00 Temperature Pulse Rate 178 H Respiratory Rate 29 H Blood Pressure 128/77 140/63 Pulse Oximetry 97 Oxygen Delivery Method Oxygen Flow Rate 08/06/24 22:00 08/06/24 22:30 08/06/24 22:30 Temperature Pulse Rate 119 H 108 H Respiratory Rate 31 H 21 Blood Pressure 115/59 L Pulse Oximetry 98 97 Oxygen Delivery Method Nasal Cannula Oxygen Flow Rate 4 08/06/24 23:00 08/06/24 23:00 Temperature Pulse Rate 111 H Respiratory Rate 21 Blood Pressure 112/55 L Pulse Oximetry 96 Oxygen Delivery Method Oxygen Flow Rate MDM - Fall Lab Data 08/06/24 20:17 08/06/24 20:17 Labs: Lab Results 08/06/24 08/06/24 08/06/24 Range/Units 20:10 20:17 22:21 WBC 16.2 H (4.5-11.0) X10^3/uL RBC 5.38 (4.5-5.9) X10^6/uL Hgb 15.1 (13.5-17.5) g/dL Hct 44.0 (41-53) % MCV 81.7 (80-100) fL MCH 28.0 (26-34) PG MCHC 34.3 (30-36) % RDW 14.7 (11.6-14.8) % Plt Count 242 (150-400) X10^3/uL Neut % (Auto) Not Reportable Lymph % (Auto) Not Reportable [place] % (Auto) Not Reportable Eos % (Auto) Not Reportable Baso % (Auto) Not Reportable Lymph # (Auto) Not Reportable [place] # (Auto) Not Reportable Baso # (Auto) Not Reportable Total Counted 100 Seg Neutrophils % 66.0 (38-70) % Lymphocytes % (Manual) 6.0 L (25-45) % Monocytes % (Manual) 27.0 H (2-11) % Eosinophils % (Manual) 1.0 L (2-4) % Neutrophils # (Manual) 01851 H (5097-6862) /uL RBC Morphology Normal morphology Sodium 138 (137-145) mmol/L Potassium 4.0 (3.4-5.1) mmol/L Chloride 107 (98-107) mmol/L Carbon Dioxide 21 L (22-32) mmol/L BUN 21 H (9-20) mg/dL Creatinine 1.05 (0.66-1.25) mg/dL Estimated GFR > 60 (>60) mL/min BUN/Creatinine Ratio 20.0 (6-22) Glucose 96 (80-110) mg/dL Lactate 2.4 H 2.4 H (0.7-2.1) mmol/L Calcium 9.0 (8.4-10.2) mg/dL Total Bilirubin 3.3 H (0.2-1.3) mg/dL AST 27 (17-59) IU/L ALT 28 (<50) IU/L Alkaline Phosphatase 88 (38-126) U/L Total Creatine Kinase < 20 L (55-170) U/L Troponin I 0.044 H 0.052 H (0.01-0.034) ng/mL NT-Pro-B Natriuret Pep 882 H (<450) pg/mL Total Protein 7.1 (6.3-8.2) g/dL Albumin 4.0 (3.5-5.0) g/dL Globulin 3.1 (1.7-4.1) g/dL Albumin/Globulin Ratio 1.3 (1.0-2.8) Procalcitonin 0.207 (<0.5) ng/mL Urine Color Yellow Urine Appearance Clear Urine pH 6.0 (4.5-8.0) Ur Specific [place] 1.010 (1.000-1.035) Urine Protein Negative (Negative) Urine Glucose (UA) Negative (Negative) g/dL Urine Ketones Negative (NEGATIVE) Urine Occult Blood 2+ H (Negative) Urine Nitrate Positive H (Negative) Urine Bilirubin Negative (NEGATIVE) Urine Urobilinogen 1.0 (0.2) E.U./dL Ur Leukocyte Esterase Negative (NEGATIVE) Urine RBC 10-30/hpf H (0-5/HPF) Urine WBC 1-5/hpf (0-5/HPF) Ur Squamous Epith Cells 0-1 /hpf (0-5/HPF) Ur Transition Epith Cell 0-1/hpf (0-5/HPF) Urine Bacteria Moderate (10-30) H (None) Urine Mucus 1+ H (Negative) Ur Culture Indicated? Specimen cultured Vol Urine Centrifuged 10ml (spun) Imaging Data CT scan - head: Radiologist's Impression: PROCEDURE: CT HEAD/BRAIN WO CON INDICATIONS: fall, confused TECHNIQUE: Noncontrast 4.5 mm thick angled axial sections acquired from the foramen magnum to the vertex, with coronal and sagittal reformats. For radiation dose reduction, the following was used: automated exposure control, adjustment of mA and/or kV according to patient size. COMPARISON: [facility], CT, CT HEAD/BRAIN WO CON, 07/14/2024, 13:54. [facility], CT, CT HEAD/BRAIN WO CON, 03/07/2019, 14:28. FINDINGS: Image quality: Diagnostic. CSF spaces: Basal cisterns are patent. No extra-axial fluid collections. The ventricles are symmetric in size and shape. Brain: No acute intracranial hemorrhage or mass effect. There is cerebral volume loss for age, with resultant ventricular and sulcal prominence. There are periventricular and deep white matter chronic small vessel ischemic changes. There is intracranial internal carotid artery atherosclerosis. Skull and face: Calvarium and visualized facial bones appear intact, without suspicious lesions. Sinuses: Mild mucosal thickening in the maxillary sinuses bilaterally and in the bilateral anterior ethmoid air cells. The remaining visualized paranasal sinuses and the mastoid air cells are clear. IMPRESSION: 1. No acute intracranial pathology. 2. Moderate chronic microvascular ischemic changes and generalized parenchymal volume loss. Approved by: Piero Bravo M.D. on 08/06/2024 at 20:58 CT - cervical spine: Radiologist's Impression: PROCEDURE: CT CERVICAL SPINE WO CON INDICATIONS: fall, confused TECHNIQUE: Noncontrast 3 mm thick sections acquired from the skull base to the T4 level. Sagittal and coronal reformats were then constructed. For radiation dose reduction, the following was used: automated exposure control, adjustment of mA and/or kV according to patient size. COMPARISON: [facility], CT, CT CERVICAL SPINE WO CON, 07/14/2024, 13:54. [facility], CT, CT CERVICAL SPINE WO CON, 03/07/2019, 14:28. FINDINGS: Image quality: Images are mildly degraded by patient motion. Diagnostic information is obtained. Bones: No acute fractures or dislocations. Visualized superior ribs are intact. Multilevel disc space narrowing and degenerative endplate changes. Multilevel uncovertebral joint and facet hypertrophy. Soft tissues: Prevertebral soft tissues are normal in thickness. No paravertebral hematomas. No apical pneumothoraces. Pacemaker leads are partially imaged. IMPRESSION: No acute displaced fracture or traumatic subluxation. Approved by: Piero Bravo M.D. on 08/06/2024 at 21:00 Chest x-ray: Radiologist's Impression: PROCEDURE: XR CHEST 1V INDICATIONS: hypoxia TECHNIQUE: One view of the chest was acquired. COMPARISON: [facility], XR CHEST 1V, 07/15/2024, 10:40. FINDINGS: Surgical changes and devices: Cardiac pacemaker is seen with pulse generator in the left chest. Lungs and pleura: Hazy opacities in the lateral right lung. Mildly low lung volumes. No significant pleural effusion or pneumothorax is seen. Mediastinum: Mediastinal contours appear normal. Heart size is normal. Bones and chest wall: No suspicious bony lesions. Overlying soft tissues appear unremarkable. IMPRESSION: Hazy opacities in the right lung suspicious for edema or pneumonia, including with viral or atypical agents. Approved by: Piero Bravo M.D. on 08/06/2024 at 20:53 CT scan - chest: Radiologist's Impression: PROCEDURE: CT ANGIO CHEST PE PROTOCOL INDICATIONS: hypoxia covid recent admission TECHNIQUE: After the administration of intravenous contrast, 2 mm thick sections acquired from the pulmonary apices to the posterior costophrenic angles. 3-dimensional maximum intensity projection (MIP) coronal and sagittal reformats were then acquired through the thorax. For radiation dose reduction, the following was used: automated exposure control, adjustment of mA and/or kV according to patient size. COMPARISON: [facility], XR CHEST 1V, 08/06/2024, 20:16. FINDINGS: Image quality: Diagnostic. Pulmonary arteries: Pulmonary arteries are normal in size, and demonstrate no intraluminal filling defects to suggest central pulmonary embolism. Lower Neck: No enlarged lymph nodes. Thyroid: No thyroid nodules which require sonographic follow up, per consensus guidelines. Axillae: No enlarged lymph nodes. Chest Wall: Unremarkable. Bones: Unremarkable. Lungs and Pleura: Patchy and confluent areas of opacity predominantly ground- glass within the right lung. Heart: Heart size is normal. No pericardial effusion. Thoracic Vessels: No aortic aneurysm. Mediastinum and Lise: No enlarged lymph nodes. Esophagus: No wall thickening. Mild hiatal hernia. Upper Abdomen: Incompletely visualized atrophic right kidney demonstrating hydronephrosis versus parapelvic cysts. IMPRESSION: No pulmonary embolus. Focal and confluent areas of opacity some appearing ground-glass in the right lung most consistent with infection or inflammation. Recommend interval follow up after appropriate therapy to document resolution. Dictated by: Celina Mulligan M.D. on 08/06/2024 at 21:59 ECG Data Attestation: I personally reviewed and interpreted this ECG as follows: Prior ECG tracings: available for review Interpretation: Low voltage sinus rhythm rate 104 IL interval 238 QRS 92 artifact noted MDM Narrative Medical decision making narrative: MDM CC: Weakness hypoxia Complicating co-morbidities: Known COVID, recent admission memory impairment issues at baseline Data collected from: Patient overall extremely poor historian records reviewed Medical records reviewed: Last admission Differential considered: Pneumonia, pulmonary embolism, COVID-19 Exam documented above, pertinent findings include: Confused male no evidence of trauma moving all extremities mild tachypnea Lab Test results independently reviewed as above. Pertinent findings: CBC WBC 16 with left shift no anemia CMP electrolyte abnormality creatinine 1.0 glucose 96 Lactate 2.4--> 2.4 Procalcitonin 0.2 Bilirubin 3.3, AST 27 ALT 28 alk-phos 88 Troponin0.044-->0.052 BNP 82 Urinalysis positive for nitrates and leukocytes Independently reviewed EKG as above Sinus tachycardia no ischemia Imaging studies independently reviewed: Head CT no intracranial abnormality CT C-spine no fracture CT angio no pulmonary embolism there is focal confluent areas of opacity some appearing ground-glass in the right lung most consistent with infection or inflammation Chest x-ray opacities right lung suspicious for edema or pneumonia Consultations: Dr. Hoyos accepts patient Treatments: Zosyn Re-evaluations: Patient remains confused on oxygen Discussion: Patient is a 88-year-old male presenting today with increasing weakness and hypoxia. Was just admitted for weakness and possible dehydration discharged to a rehab facility. He is hypoxic requiring 3-4 L of oxygen. He does have leukocytosis elevated lactic acid and pneumonia both on chest x-ray and CT. He was given Zosyn for antibiotics. He also has a UTI with positive nitrates. Troponin is indeterminate, likely secondary to hypoxia it was not positive no evidence of NSTEMI. Lactate remains elevated at 2.4 without significant change Discharge Plan Departure Patient Disposition: Admitted As Inpatient Clinical Impression: Pneumonia, Weakness, Hypoxia Admit Date/Time: 08/06/24 23:19 Admit Provider: Nasim Hoyos
[2024-08-06 20:59] LABS: Procalcitonin 0.207 ng/mL (<0.5)
--- NOTE | 2024-08-06 21:22 | DI.CT.S_ITS ---
PROCEDURE: CT ANGIO CHEST PE PROTOCOL INDICATIONS: hypoxia covid recent admission TECHNIQUE: After the administration of intravenous contrast, 2 mm thick sections acquired from the pulmonary apices to the posterior costophrenic angles. 3-dimensional maximum intensity projection (MIP) coronal and sagittal reformats were then acquired through the thorax. For radiation dose reduction, the following was used: automated exposure control, adjustment of mA and/or kV according to patient size. COMPARISON: [facility], CR, XR CHEST 1V, 08/06/2024, 20:16. FINDINGS: Image quality: Diagnostic. Pulmonary arteries: Pulmonary arteries are normal in size, and demonstrate no intraluminal filling defects to suggest central pulmonary embolism. Lower Neck: No enlarged lymph nodes. Thyroid: No thyroid nodules which require sonographic follow up, per consensus guidelines. Axillae: No enlarged lymph nodes. Chest Wall: Unremarkable. Bones: Unremarkable. Lungs and Pleura: Patchy and confluent areas of opacity predominantly ground-glass within the right lung. Heart: Heart size is normal. No pericardial effusion. Thoracic Vessels: No aortic aneurysm. Mediastinum and Lise: No enlarged lymph nodes. Esophagus: No wall thickening. Mild hiatal hernia. Upper Abdomen: Incompletely visualized atrophic right kidney demonstrating hydronephrosis versus parapelvic cysts. IMPRESSION: No pulmonary embolus. Focal and confluent areas of opacity some appearing ground-glass in the right lung most consistent with infection or inflammation. Recommend interval follow up after appropriate therapy to document resolution. Dictated by: Celina Mulligan M.D. on 08/06/2024 at 21:59 Approved by: Celina Mulligan M.D. on 08/06/2024 at 22:01
[2024-08-06] MEDS: LORazepam 2 MG/ML INJ 0.5 MG IV (21:38)
[2024-08-06 22:02] LABS: Reflexed Lactate in 2 Hours Y
[2024-08-06] MEDS: PIPERACILLIN/TAZO 4.5 GM in SODIUM CHLORIDE 0.9% 100 ML IV (22:16)
[2024-08-06 22:26] LABS: Appearance Urine UA CLEAR; Bilirubin Urine UA NEGATIVE (NEGATIVE); Color Urine UA YELLOW; Glucose Urine UA NEGATIVE (Negative); Ketones Urine UA NEGATIVE (NEGATIVE); Leukocyte Esterase Urine UA NEGATIVE (NEGATIVE); Nitrite Urine UA POSITIVE (Negative); Occult Blood Urine UA 2+ (Negative); Protein Urine UA NEGATIVE (Negative)
[2024-08-06 22:34] LABS: Bacteria Urine Moderate (10-30); RBC Urine 10-30/HPF (0-5/HPF); Squamous Epithelial Cell Urine 0-1 /HPF (0-5/HPF); Urine Volume 10mL (spun); WBC Urine 1-5/HPF (0-5/HPF)
[2024-08-06 22:35] LABS: Culture Indicated Urine Specimen Cultured; Mucus Urine 1+ (Negative); Transitional Epi Cells Urine 0-1/HPF (0-5/HPF)
[2024-08-06 22:37] LABS: Lactate 2HR (Lactic Acid Rflx) 2.4 mmol/L (0.7-2.1)
[2024-08-06 22:50] LABS: Troponin I 0.052 ng/mL (0.01-0.034)
[2024-08-07] VITALS (14 sets, daily range): BP systolic 80–115; BP diastolic 51–63; PULSE 64–108; RESP 18–27; TEMP 36.7–37.3; O2SAT 89–98
[2024-08-07] MEDS: PIPERACILLIN/TAZO 3.375 GM in SODIUM CHLORIDE 0.9% 100 ML IV ×4 (00:15→23:55)
--- NOTE | 2024-08-07 00:49 | P.HP_ITS ---
History of Present Illness History of Present Illness Chief complaint: GLF Narrative: 88 years old male with history of hypertension, hyperlipidemia, GERD, CAD presented to the ER with ground-level fall and hypoxia. The patient is poor historian. He was hospitalized in July 14 for generalized weakness and was discharged to rehab center. Discharged 2 days ago from the rehab and was diagnosed with COVID couple days ago. Laboratory shows WBC 16, lactic acid 2.4, procalcitonin 0.27, BNP 882, troponin 0.05. EKG shows sinus tachycardia. CT of the chest shows no PE with focal confluent area of opacity appearing groundglass in the right lung most consistent with infection. Chest x-ray shows right lung suspicious for edema or pneumonia. CT of the head shows moderate chronic microvascular ischemic changes and parenchymal volume loss. In the ER he was given Zosyn 4.5 g IV, Ativan 0.5 mg IV and fluid bolus. [facility] Medical History Pacemaker CVA (cerebral vascular accident) Hyperlipidemia Social History household members: spouse Smoking Status: Never smoker alcohol intake: current Meds Home Medications and Allergies Home Medications Medication Instructions Recorded Confirmed Type atorvastatin 10 mg tablet 10 mg PO QPM 05/28/18 07/14/24 History pantoprazole 40 mg tablet,delayed 40 mg PO DAILY 04/19/23 07/14/24 History release valsartan 40 mg tablet 40 mg PO DAILY 04/19/23 07/14/24 History ascorbic acid (vitamin C) 500 mg 500 mg PO DAILY 07/14/24 07/14/24 History tablet (Vitamin C) aspirin 81 mg capsule 81 mg PO BEDTIME 07/14/24 07/14/24 History cyanocobalamin (vitamin B-12) 3,000 mcg PO DAILY 07/14/24 07/14/24 History 3,000 mcg capsule magnesium citrate 100 mg capsule 600 mg PO DAILY 07/14/24 07/14/24 History multivit with minerals-iron 18 1 tab PO DAILY 07/14/24 07/14/24 History mg-folic ac 400 mcg-vit K 25 mcg tablet (Adults Multivitamin) acetaminophen 325 mg tablet 650 mg (2 x 325 mg) PO Q6H PRN 07/16/24 Rx Fever/Mild Pain (1-3) #30 tabs Allergies Allergy/AdvReac Type Severity Reaction Status Date / Time morphine AdvReac Verified 03/26/23 10:46 Review of Systems Review of Systems ROS: Yes All systems reviewed with the patient and are negative except as otherwise documented Constitutional Constitutional: Reports as per HPI and Reports system reviewed and no additional complaints, except as documented Eyes Eyes: Reports as per HPI and Reports system reviewed and no additional complaints, except as documented ENT Ears, Nose, Mouth, and Throat: Yes as per HPI and Yes system reviewed and no additional complaints, except as documented Cardiovascular Cardiovascular: Reports system reviewed and no additional complaints, except as documented Respiratory Respiratory: Reports system reviewed and no additional complaints, except as documented Gastrointestinal Gastrointestinal: Reports system reviewed and no additional complaints, except as documented Genitourinary Genitourinary: Reports system reviewed and no additional complaints, except as documented Musculoskeletal Musculoskeletal: Reports system reviewed and no additional complaints, except as documented, Reports abnormal gait and Reports numbness Neurologic Neurologic: Reports system reviewed and no additional complaints, except as documented, Reports abnormal gait, Reports confusion and Reports numbness Psychiatric Psychiatric: Reports system reviewed and no additional complaints, except as documented and Reports confusion Exam Vital Signs (past 8 hours): - 08/06/24 19:53 08/06/24 19:53 08/06/24 19:57 Temperature 99.2 F Pulse Rate 67 107 H Respiratory Rate 24 Blood Pressure 128/70 128/70 Pulse Oximetry 93 87 L Oxygen Delivery Method Room Air Oxygen Flow Rate 08/06/24 20:00 08/06/24 20:00 08/06/24 21:00 Temperature Pulse Rate 104 H 115 H Respiratory Rate 28 H 30 H Blood Pressure 114/58 L Pulse Oximetry 94 94 Oxygen Delivery Method Nasal Cannula Oxygen Flow Rate 4 08/06/24 21:00 08/06/24 21:30 08/06/24 21:30 Temperature Pulse Rate 112 H Respiratory Rate 28 H Blood Pressure 131/56 L 154/68 H Pulse Oximetry 97 Oxygen Delivery Method Oxygen Flow Rate 08/06/24 21:56 08/06/24 21:56 08/06/24 22:00 Temperature Pulse Rate 178 H Respiratory Rate 29 H Blood Pressure 128/77 140/63 Pulse Oximetry 97 Oxygen Delivery Method Oxygen Flow Rate 08/06/24 22:00 08/06/24 22:30 08/06/24 22:30 Temperature Pulse Rate 119 H 108 H Respiratory Rate 31 H 21 Blood Pressure 115/59 L Pulse Oximetry 98 97 Oxygen Delivery Method Nasal Cannula Oxygen Flow Rate 4 08/06/24 23:00 08/06/24 23:00 08/06/24 23:30 Temperature Pulse Rate 111 H 112 H Respiratory Rate 21 23 Blood Pressure 112/55 L Pulse Oximetry 96 96 Oxygen Delivery Method Oxygen Flow Rate 08/06/24 23:30 Temperature Pulse Rate Respiratory Rate Blood Pressure 118/58 L Pulse Oximetry Oxygen Delivery Method Oxygen Flow Rate Oxygen Delivery Method Nasal Cannula Oxygen Flow Rate 4 Const General: cooperative, comfortable and well developed Orientation: alert and oriented x3 HENMT Head: normal to inspection, normocephalic and atraumatic Face and sinus: normal facial exam Mouth: oral mucosae normal and moist mucous membranes Throat: posterior oropharynx normal Eyes General: appearance normal, both eyes and all related structures Pupils: PERRL EOM: EOM intact bilaterally Neck Neck: normal visual inspection and full ROM Chest Chest: normal inspection of the chest Resp Effort & Inspection: normal respiratory effort and able to speak in complete sentences Auscultation: clear to auscultation bilaterally Cardio Palpation: normal PMI Rate: regular rate Rhythm: regular rhythm Heart Sounds: S1 normal and S2 normal GI Inspection: normal to inspection Palpation: soft and no hepatosplenomegaly Auscultation: normal bowel sounds Skin General: no rashes or lesions noted Lesions: no lesions Rashes: no rashes Trauma: no lacerations or abrasions Neuro General: patient alert, patient awake, patient oriented x3 and no focal motor deficits Cranial Nerves: CN's II-XI intact bilaterally Cognition: normal cognition Speech: speech normal Gait: normal gait Motor: muscle tone normal throughout Sensory Exam: no sensory deficits noted Extrem General: full ROM and no calf tenderness Psych Appearance: grossly normal Mental Status: mental status grossly normal Speech and Movement: speech and movement normal Objective Labs 08/06/24 20:17 08/06/24 20:17 Labs: Laboratory Results - last 24 hr 08/06/24 08/06/24 08/06/24 20:10 20:17 22:21 WBC 16.2 H RBC 5.38 Hgb 15.1 Hct 44.0 MCV 81.7 MCH 28.0 MCHC 34.3 RDW 14.7 Plt Count 242 Neut % (Auto) Not Reportable Lymph % (Auto) Not Reportable [place] % (Auto) Not Reportable Eos % (Auto) Not Reportable Baso % (Auto) Not Reportable Lymph # (Auto) Not Reportable [place] # (Auto) Not Reportable Baso # (Auto) Not Reportable Total Counted 100 Seg Neutrophils % 66.0 Lymphocytes % (Manual) 6.0 L Monocytes % (Manual) 27.0 H Eosinophils % (Manual) 1.0 L Neutrophils # (Manual) 99051 H RBC Morphology Normal morphology Sodium 138 Potassium 4.0 Chloride 107 Carbon Dioxide 21 L BUN 21 H Creatinine 1.05 Estimated GFR > 60 BUN/Creatinine Ratio 20.0 Glucose 96 Lactate 2.4 H 2.4 H Calcium 9.0 Total Bilirubin 3.3 H AST 27 ALT 28 Alkaline Phosphatase 88 Total Creatine Kinase < 20 L Troponin I 0.044 H 0.052 H NT-Pro-B Natriuret Pep 882 H Total Protein 7.1 Albumin 4.0 Globulin 3.1 Albumin/Globulin Ratio 1.3 Procalcitonin 0.207 Urine Color Yellow Urine Appearance Clear Urine pH 6.0 Ur Specific [place] 1.010 Urine Protein Negative Urine Glucose (UA) Negative Urine Ketones Negative Urine Occult Blood 2+ H Urine Nitrate Positive H Urine Bilirubin Negative Urine Urobilinogen 1.0 Ur Leukocyte Esterase Negative Urine RBC 10-30/hpf H Urine WBC 1-5/hpf Ur Squamous Epith Cells 0-1 /hpf Ur Transition Epith Cell 0-1/hpf Urine Bacteria Moderate (10-30) H Urine Mucus 1+ H Ur Culture Indicated? Specimen cultured Vol Urine Centrifuged 10ml (spun) Assessment & Plan Assessment & Plan narrative: Acute respiratory failure with hypoxia Community acquired pneumonia -Admit to Med/Surg -oxygen supplement to keep oxygenation greater than 92% -if the patient has significant hypoxic or lethargic will consider ABG -Empiric antibiotics Zosyn -continue nebulizer breathing treatments w/ Albuterol q4H as needed -Tylenol for fever and antitussives as needed -2 sets of blood cultures prior to antibiotics -Send influenza/viral panel CAD. Restart aspirin, atorvastatin Hypertension. Restart valsartan GERD. Restart PPI. Time-Based Coding :: [TOTAL MINUTES] spent with patient and on the chart (including review of chart, obtaining history, exam, reviewing outside data, placing orders, documenting exam and treatment plan, and counseling patient) on [DATE]. Quality VTE Deep Vein Thrombosis/Pulmonary Embolism Present on Admission: No MIPS - Admit I confirm the patient?s Advance Care Plan is present, Code status is documented, Surrogate decision maker is in patient?s record [If Yes, STOP here]: Yes MIPS - Meds 'Current medications' to include all prescriptions, [id number] products, herbals, cannabis/cannabidiol products, and vitamin/mineral/dietary (nutritional) supplements. I have utilized all available resources to obtain, update, or review the patient?s current medications. [If Yes, STOP here]: Yes
[2024-08-07 01:42] LABS: MRSA (Nasal) PCR DETECTED (Not Detect)
[2024-08-07 05:09] LABS: Influenza A - CEPHEID Flu A NEGATIVE (NEGATIVE); Influenza B - CEPHEID Flu B NEGATIVE (NEGATIVE); Respiratory Syncytial Virus Negative (Negative)
[2024-08-07 05:13] LABS: COVID-19 CEPHEID 4-PLEX PCR POSITIVE (Negative)
[2024-08-07 08:07] LABS: Lactate (Lactic Acid) 1.7 mmol/L (0.7-2.1); Magnesium 1.8 mg/dL (1.6-2.3)
[2024-08-07 08:16] LABS: Troponin I 0.089 ng/mL (0.01-0.034)
[2024-08-07] MEDS: PANTOPRAZOLE DR 40 MG TABLET PO (09:01)
[2024-08-07] MEDS: ACETAMINOPHEN 325 MG TABLET 650 MG PO ×3 (09:01→22:10)
[2024-08-07] MEDS: MULTIVITAMIN 1 TABLET 1 TAB PO (09:01)
[2024-08-07] MEDS: QUETIAPINE 25 MG TABLET PO ×2 (11:37→20:29)
--- NOTE | 2024-08-07 11:51 | PT-IP ANOTE ---
checked on pt x 2. nurse stated that pt is not appropriate for PT this am. pt just pulled out his IV lines. hospitalist stated that he will order seroquel for pt and PT to check back this afternoon.
--- NOTE | 2024-08-07 13:58 | PT.IIE ---
Current Diagnoses Pneumonia, unspecified organism (08/06/24) Weakness (08/06/24) Medical History (Last Reviewed 08/06/24 @ 22:32 by Kelley Whitley DO) CVA (cerebral vascular accident) Hyperlipidemia Pacemaker Physical Therapy Inpatient Evaluation/Re-Eval M1 PT/OT-IP Prior Functional Status Start: 08/07/24 15:35 Freq: NEEDED Status: Active Protocol: Document 08/07/24 13:58 AB (Rec: 08/07/24 15:54 AB [id number]) Medical Review Prior Functional Status Medical History Reviewed Yes Communication able to make needs known; very [place] Mobility and Gait pt stated that he was modified independent with all mobilities and ambulation using a FWW; pt has h/o frequent falls Social History Household Members spouse Living Arrangements House Number of Floors (Floors) One Floor Number of Stairs To Enter/Railing? 2 steps without rails to enter the house Home Environment Standard Height Toilet,Walk in Shower Home Equipment Front Wheel Walker,Shower Seat with Backrest,Grab Bars In Shower M2 PT-IP Current Condition Start: 08/07/24 15:35 Freq: NEEDED Status: Active Protocol: Document 08/07/24 13:58 AB (Rec: 08/07/24 15:54 AB [id number]) Physical Therapy Current Condition Current Condition Evaluation Date 08/07/24 Treatment Diagnosis Covid; PNA; difficulty in walking Onset Date 08/06/24 M3 PT-IP Subjective Start: 08/07/24 15:35 Freq: NEEDED Status: Active Protocol: Document 08/07/24 13:58 AB (Rec: 08/07/24 15:54 AB [id number]) Subjective Physical Therapy Visit Type Type Initial Evaluation Visit Start Time 13:58 Visit Stop Time 14:35 Number of SCRUB WHEEL OPERATOR Visits 0 Physical Therapy Visit Comments Patient Comments agreeable to do PT Therapy Pain Assessment Pain Present Pain Present Denied Pain M4 PT-IP Mobility and Gait Start: 08/07/24 15:35 Freq: NEEDED Status: Active Protocol: Document 08/07/24 13:58 AB (Rec: 08/07/24 15:54 AB [id number]) PT-Bed Mobility Assessment Supine to Sit Supine to Sit Maximum Assistance PT-Transfer Assessment Sit to and From Stand Sit to and from Stand Maximum Assistance,1 Person Assistance,Use of Upper Extremities Equipment Transfer Assistive Device Gait Belt,Front Wheeled Walker Orthotic/Prosthetic Devices or Brace: No Transfers Transfer Destination Chair Transfer Technique ambulated Transfer Ability Level of Assist Maximum Assistance,1 Person Assistance,Use of Upper Extremities Comments Mobility Comments pt in bed and agreeable to do PT. obtained PLOF and home set up. pt is very [place] and needed repetition of instructions. pt also can be impulsive. completed supine to sit max A and max cues. able to sit on EOB CGA and cues for safety. sit to stand max A and max cues. pt ambulated ~ 15 ft using FWW max A and max cues. presents with unsteady gait with LOB to the R during turning. pt stated that he needs to sit down. pt sat on the chair. refused further ambulation and stated that he needs to rest. positioned pt on the chair. call light and table placed within reach. chair alarm on. Gait Assessment Gait Gait Assistance Required: Maximum Assistance Distance (Feet) 15 Able to Maintain Weight Bearing Status Yes During Gait Assistive Devices Assistive Device Gait Belt,Front Wheeled Walker Orthotic/Prosthetic Devices or Brace: No Gait Deviations General Gait Pattern Ataxic,Decreased Stride Length ,Decreased Feet Clearance Factors Limiting Gait Function Factors Limiting Gait Function Decreased Activity Tolerance, Decreased Strength,Difficulty Following Directions,Limited Range of Motion,Poor Balance, Poor Safety Awareness PT-Balance Assessment Sitting Balance and Reactions Static Sitting Balance Ability Good Dynamic Sitting Balance Ability Fair Standing Balance and Reactions Static Standing Balance Ability Poor Dynamic Standing Balance Ability Poor Device Used FWW M5 PT-IP Objective Assessments Start: 08/07/24 15:35 Freq: NEEDED Status: Active Protocol: Document 08/07/24 13:58 AB (Rec: 08/07/24 15:54 [id number]) Orientation Orientation/Cognition Level of Alertness Confusional State Orientation Name Language Function Ability Hard of Hearing Safety Awareness Decreased Safety Awareness Memory Description Short Term Impaired Strength Lower Extremity Strength Assessment Within Functional Limits Muscle Tone Muscle Tone WNL Yes M6 PT-IP Treatment Start: 08/07/24 15:35 Freq: NEEDED Status: Active Protocol: Document 08/07/24 13:58 AB (Rec: 08/07/24 15:54 [id number]) Physical Therapy Treatment Education Education Provided Safety M7 PT-IP Assessment and Plan Start: 08/07/24 15:35 Freq: NEEDED Status: Active Protocol: Document 08/07/24 13:58 AB (Rec: 08/07/24 15:54 AB [id number]) PT Summary Assessment and Plan Potential Rehabilitation Potential Fair Status of Condition at Evaluation Evolving Summary Impairments Pain,ROM,Strength,Balance, Coordination,Sensation,Tone, Cognition,Bed Mobility, Transfers,Gait,Activity Tolerance Assessment Summary pt is an 88 y/o M who is admitted s/p fall and found to be Covid (+) and also has PNA . pt also (+) MRSA on nasal screen. pt requiring max A with mobilities using FWW with (+) LOB during ambulation. pt will require 24/ assist and will benefit from SNF rehab. will continue to assess progress. Goals Bed Mobility Goal Minimal Assistance Transfer Goal Minimal Assistance,Front Wheeled Walker Gait Goal Minimal Assistance,Front Wheel Walker Gait Distance 50 Other Goals improve bed mobility, transfers, ambulation using FWW ~ 150 ft SBA up/down 2 steps CGA Days to Meet Goals 10 Frequency of Treatment Frequency Of Treatment Once a Day Treatment Plan Physical Therapy Treatment Plan Bed Mobility Training,Transfer Training,Gait Training, Therapeutic Exercise,Balance Retraining,Discharge Planning, Hot or Cold Pack,Neuromuscular Re-ed,Coordination Retraining ,Manual Therapy Precautions Other Precautions falls; Covid droplet precautions, MRSA precautions Recommendations To Nursing Amount of Assist Needed 1 Person Assist Discharge Recommendations PT Discharge Recommendations SNF Rehab Transportation Needs at Discharge Wheelchair/Cabulance
[2024-08-07 15:35] LABS: Acinetobacter calcoa-baumannii Not Detected (Not Detect); Bacteroides fragilis Not Detected (Not Detect); CTX-M Resistance Not Detected (Not Detect); Candida albicans Not Detected (Not Detect); Candida auris Not Detected (Not Detect); Candida glabrata Not Detected (Not Detect); Candida krusei Not Detected (Not Detect); Candida parapsilosis Not Detected (Not Detect); Candida tropicalis Not Detected (Not Detect); Cryptococcus neoformans/gatti Not Detected (Not Detect); Enterobacter cloacae complex Not Detected (Not Detect); Enterobacterales Not Detected (Not Detect); Enterococcus faecalis Not Detected (Not Detect); Enterococcus faecium Not Detected (Not Detect); Haemophilus influenzae Not Detected (Not Detect); IMP Resistance Not Detected (Not Detect); KPC Resistance Not Detected (Not Detect); Klebsiella aerogenes Not Detected (Not Detect); Listeria monocytogenes Not Detected (Not Detect); NDM Resistance Not Detected (Not Detect); Neisseria meningitidis Not Detected (Not Detect); Proteus species Not Detected (Not Detect); Pseudomonas aeruginosa Detected (Not Detect); Salmonella species Not Detected (Not Detect); Serratia marcescens Not Detected (Not Detect); Staphylococcus epidermidis Not Detected (Not Detect); Staphylococcus lugdunensis Not Detected (Not Detect); Staphylococcus species Not Detected (Not Detect); Stenotrophomonas maltophilia Not Detected (Not Detect); Streptococcus agalactiae (Gr B Not Detected (Not Detect); Streptococcus pneumonia Not Detected (Not Detect); Streptococcus pyogenes (Gr A) Not Detected (Not Detect); Streptococcus species Not Detected (Not Detect); VIM Resistance Not Detected (Not Detect)
--- NOTE | 2024-08-07 16:14 | CM.DANOTE ---
Initial DCP Assessment Note Pt is an 88 yo male, resident [facility], COVID+, admitted after GLF at home. Patient on 4L O2 today. PCP: Kelle Ordonez/[facility] Payer: [facility] Reviewed chart, pt discussed in multidisciplinary rounds this morning. Patient discharged home w/sp from [facility] approx 2 days ago. It is likely that SNF will be required again, still needed: - Discussion with spouse about discharge plan and SNF preference - SNF search, need ISO bed due to recent COVID infection - Auth secured through [facility] Need therapy evals to support skilled need at SNF; if sp agreeable to this plan. CM team will plan to follow clinical course closely. PASRR needed if SNF. CHERRI Rebollar Discharge Planning/Care Management Discharge Assessment Start: 08/07/24 16:11 Freq: Status: Active Protocol: Document 08/07/24 16:11 KELSEA (Rec: 08/07/24 16:14 KELSEA [id number]) Discharge Planning Assessment Assigned Aviation Safety Equipment Technician CHERRI Gonsales DPOA/Assigned Designee Name Gris Beckman, spouse Contact Information [phone] Advance Directives? Yes Advance Directives on File Yes History Provided By Family Member,Medical Record Has Patient been admitted in last 30 Yes days? Comment at 07/14-07/16 Prior Living Arrangements House Household Members spouse Type of transporation used prior to Relies on Others admit Independent with ADL's No Is patient alert and oriented? No Patient/Family Preference Senior Care Facility Discharge Plan Senior Care Facility Transportation Arrangement LIkely wheelchair
--- NOTE | 2024-08-07 16:22 | PM.PN.1 ---
Subjective Subjective Interval history: 88 year old male admitted with acute encephalopathy, covid. Today he became quite agitated, was saturating well on room air, but very confused. He was given seroquel with improvement in encephalopathy, brief episode of respiratory distress. Blood cultures also grew a gram negative bacilli, he is on zosyn, WBC increased on repeat this afternoon, likely because he took out his IV and missed some antibiotics. Exam Vital Signs (past 8 hours): - 08/07/24 10:05 08/07/24 11:00 08/07/24 13:24 Temperature 98.2 F Pulse Rate 81 92 H 64 Respiratory Rate 22 27 H Blood Pressure 101/63 Pulse Oximetry 97 98 94 Oxygen Flow Rate 08/07/24 13:25 08/07/24 13:33 08/07/24 14:39 Temperature Pulse Rate 74 Respiratory Rate Blood Pressure 80/51 L 115/63 Pulse Oximetry 92 Oxygen Flow Rate 4 08/07/24 16:00 Temperature Pulse Rate 107 H Respiratory Rate Blood Pressure Pulse Oximetry 89 L Oxygen Flow Rate Oxygen Delivery Method Nasal Cannula Oxygen Flow Rate 4 Narrative Exam Narrative: GENERAL:Awake and alert, agitated. Dyspnic with minimal exertion. HEENT: Nonicteric sclerae, PERRLA, EOMI. Oropharynx clear. Moist mucous membranes. Conjunctivae appear well perfused. HEART: Regular rate and rhythm without murmurs. No lower extremities edema. LUNGS: bibasilar rhonchi ABDOMEN: Soft, positive bowel sounds, nontender. SKIN: No rash, no excessive bruising, petechiae, or purpura. NEUROLOGIC: AxO to name and hospital, though not city or date. Cranial nerves II-XII intact without motor/sensory deficit. Objective Labs 08/07/24 17:46 08/07/24 17:46 Labs: Laboratory Results - last 24 hr 08/06/24 08/06/24 08/06/24 20:10 20:17 22:21 WBC 16.2 H RBC 5.38 Hgb 15.1 Hct 44.0 MCV 81.7 MCH 28.0 MCHC 34.3 RDW 14.7 Plt Count 242 Neut % (Auto) Not Reportable Lymph % (Auto) Not Reportable [place] % (Auto) Not Reportable Eos % (Auto) Not Reportable Baso % (Auto) Not Reportable Lymph # (Auto) Not Reportable [place] # (Auto) Not Reportable Baso # (Auto) Not Reportable Total Counted 100 Seg Neutrophils % 66.0 Lymphocytes % (Manual) 6.0 L Monocytes % (Manual) 27.0 H Eosinophils % (Manual) 1.0 L Neutrophils # (Manual) 38178 H RBC Morphology Normal morphology Sodium 138 Potassium 4.0 Chloride 107 Carbon Dioxide 21 L BUN 21 H Creatinine 1.05 Estimated GFR > 60 BUN/Creatinine Ratio 20.0 Glucose 96 Lactate 2.4 H 2.4 H Calcium 9.0 Magnesium Total Bilirubin 3.3 H AST 27 ALT 28 Alkaline Phosphatase 88 Total Creatine Kinase < 20 L Troponin I 0.044 H 0.052 H NT-Pro-B Natriuret Pep 882 H Total Protein 7.1 Albumin 4.0 Globulin 3.1 Albumin/Globulin Ratio 1.3 Procalcitonin 0.207 Urine Color Yellow Urine Appearance Clear Urine pH 6.0 Ur Specific [place] 1.010 Urine Protein Negative Urine Glucose (UA) Negative Urine Ketones Negative Urine Occult Blood 2+ H Urine Nitrate Positive H Urine Bilirubin Negative Urine Urobilinogen 1.0 Ur Leukocyte Esterase Negative Urine RBC 10-30/hpf H Urine WBC 1-5/hpf Ur Squamous Epith Cells 0-1 /hpf Ur Transition Epith Cell 0-1/hpf Urine Bacteria Moderate (10-30) H Urine Mucus 1+ H Ur Culture Indicated? Specimen cultured Vol Urine Centrifuged 10ml (spun) Nasal Screen MRSA (PCR) A.calcoaceticus-baumannii cmplx PCR Bacteroides fragilis Alexia albicans (PCR) Alexia auris (PCR) C. glabrata (PCR) C. krusei (PCR) C. parapsilosis (PCR) C. tropicalis (PCR) SARS-CoV-2 (PCR) C. neoform/gattii (PCR) Enterobacterales (PCR) E. cloacae complex PCR Enterococc faecalis PCR Enterococc faecium PCR E. coli (PCR) H. influenzae (PCR) Influenza A (RT-PCR) Influenza B (RT-PCR) Klebsiella aerogenes (PCR) Klebsiella oxytoca PCR Klebsiella pneumoniae List. monocytogenes PCR N. meningitidis (PCR) Proteus species (PCR) RSV (PCR) Salmonella spp. (PCR) Serratia marcescens PCR Staphylococcus sp PCR Staph aureus (PCR) mecA/C & MREJ Resist Gene mecA/C-Methicil Resis Gene mcr-1 Colistin Res Gene PCR Staph epidermidis (PCR) Staph lugdunensis PCR S. maltophilia (PCR) Streptococcus sp PCR Group A Strep (PCR) Strep agalactiae (PCR) Strep pneumoniae (PCR) P. aeruginosa (PCR) Daniel/B-Vanco Res Genes blaIMP Car res Gene PCR KPC-Carbap Res Gene PCR blaNDM Car Res Gene PCR OXA-48 Carbapenem Resis Gene (PCR) blaVIM Car Res Gene PCR CTX-M Gene Resistance (PCR) 08/07/24 08/07/24 08/07/24 00:24 04:00 07:22 WBC RBC Hgb Hct MCV MCH MCHC RDW Plt Count Neut % (Auto) Lymph % (Auto) [place] % (Auto) Eos % (Auto) Baso % (Auto) Lymph # (Auto) [place] # (Auto) Baso # (Auto) Total Counted Seg Neutrophils % Lymphocytes % (Manual) Monocytes % (Manual) Eosinophils % (Manual) Neutrophils # (Manual) RBC Morphology Sodium Potassium Chloride Carbon Dioxide BUN Creatinine Estimated GFR BUN/Creatinine Ratio Glucose Lactate 1.7 Calcium Magnesium 1.8 Total Bilirubin AST ALT Alkaline Phosphatase Total Creatine Kinase Troponin I 0.089 H NT-Pro-B Natriuret Pep Total Protein Albumin Globulin Albumin/Globulin Ratio Procalcitonin Urine Color Urine Appearance Urine pH Ur Specific [place] Urine Protein Urine Glucose (UA) Urine Ketones Urine Occult Blood Urine Nitrate Urine Bilirubin Urine Urobilinogen Ur Leukocyte Esterase Urine RBC Urine WBC Ur Squamous Epith Cells Ur Transition Epith Cell Urine Bacteria Urine Mucus Ur Culture Indicated? Vol Urine Centrifuged Nasal Screen MRSA (PCR) Detected H A.calcoaceticus-baumannii cmplx PCR Bacteroides fragilis Alexia albicans (PCR) Alexia auris (PCR) C. glabrata (PCR) C. krusei (PCR) C. parapsilosis (PCR) C. tropicalis (PCR) SARS-CoV-2 (PCR) Positive H C. neoform/gattii (PCR) Enterobacterales (PCR) E. cloacae complex PCR Enterococc faecalis PCR Enterococc faecium PCR E. coli (PCR) H. influenzae (PCR) Influenza A (RT-PCR) Flu a negative Influenza B (RT-PCR) Flu b negative Klebsiella aerogenes (PCR) Klebsiella oxytoca PCR Klebsiella pneumoniae List. monocytogenes PCR N. meningitidis (PCR) Proteus species (PCR) RSV (PCR) Negative Salmonella spp. (PCR) Serratia marcescens PCR Staphylococcus sp PCR Staph aureus (PCR) mecA/C & MREJ Resist Gene mecA/C-Methicil Resis Gene mcr-1 Colistin Res Gene PCR Staph epidermidis (PCR) Staph lugdunensis PCR S. maltophilia (PCR) Streptococcus sp PCR Group A Strep (PCR) Strep agalactiae (PCR) Strep pneumoniae (PCR) P. aeruginosa (PCR) Daniel/B-Vanco Res Genes blaIMP Car res Gene PCR KPC-Carbap Res Gene PCR blaNDM Car Res Gene PCR OXA-48 Carbapenem Resis Gene (PCR) blaVIM Car Res Gene PCR CTX-M Gene Resistance (PCR) 08/07/24 21:01 WBC RBC Hgb Hct MCV MCH MCHC RDW Plt Count Neut % (Auto) Lymph % (Auto) [place] % (Auto) Eos % (Auto) Baso % (Auto) Lymph # (Auto) [place] # (Auto) Baso # (Auto) Total Counted Seg Neutrophils % Lymphocytes % (Manual) Monocytes % (Manual) Eosinophils % (Manual) Neutrophils # (Manual) RBC Morphology Sodium Potassium Chloride Carbon Dioxide BUN Creatinine Estimated GFR BUN/Creatinine Ratio Glucose Lactate Calcium Magnesium Total Bilirubin AST ALT Alkaline Phosphatase Total Creatine Kinase Troponin I NT-Pro-B Natriuret Pep Total Protein Albumin Globulin Albumin/Globulin Ratio Procalcitonin Urine Color Urine Appearance Urine pH Ur Specific [place] Urine Protein Urine Glucose (UA) Urine Ketones Urine Occult Blood Urine Nitrate Urine Bilirubin Urine Urobilinogen Ur Leukocyte Esterase Urine RBC Urine WBC Ur Squamous Epith Cells Ur Transition Epith Cell Urine Bacteria Urine Mucus Ur Culture Indicated? Vol Urine Centrifuged Nasal Screen MRSA (PCR) A.calcoaceticus-baumannii cmplx PCR Not detected Bacteroides fragilis Not detected Alexia albicans (PCR) Not detected Alexia auris (PCR) Not detected C. glabrata (PCR) Not detected C. krusei (PCR) Not detected C. parapsilosis (PCR) Not detected C. tropicalis (PCR) Not detected SARS-CoV-2 (PCR) C. neoform/gattii (PCR) Not detected Enterobacterales (PCR) Not detected E. cloacae complex PCR Not detected Enterococc faecalis PCR Not detected Enterococc faecium PCR Not detected E. coli (PCR) Not detected H. influenzae (PCR) Not detected Influenza A (RT-PCR) Influenza B (RT-PCR) Klebsiella aerogenes (PCR) Not detected Klebsiella oxytoca PCR Not detected Klebsiella pneumoniae Not detected List. monocytogenes PCR Not detected N. meningitidis (PCR) Not detected Proteus species (PCR) Not detected RSV (PCR) Salmonella spp. (PCR) Not detected Serratia marcescens PCR Not detected Staphylococcus sp PCR Not detected Staph aureus (PCR) Not detected mecA/C & MREJ Resist Gene Not applicable mecA/C-Methicil Resis Gene Not applicable mcr-1 Colistin Res Gene PCR Not applicable Staph epidermidis (PCR) Not detected Staph lugdunensis PCR Not detected S. maltophilia (PCR) Not detected Streptococcus sp PCR Not detected Group A Strep (PCR) Not detected Strep agalactiae (PCR) Not detected Strep pneumoniae (PCR) Not detected P. aeruginosa (PCR) Detected Daniel/B-Vanco Res Genes Not applicable blaIMP Car res Gene PCR Not detected KPC-Carbap Res Gene PCR Not detected blaNDM Car Res Gene PCR Not detected OXA-48 Carbapenem Resis Gene (PCR) Not applicable blaVIM Car Res Gene PCR Not detected CTX-M Gene Resistance (PCR) Not detected PFSH Medical History Pacemaker CVA (cerebral vascular accident) Hyperlipidemia Social History household members: spouse Smoking Status: Never smoker alcohol intake: current Assessment & Plan Assessment & Plan narrative: Assessment: Sepsis with acute metabolic encephalopathy, Acute respiratory failure with hypoxia, elevated bilirubin, JOAN Community acquired pneumonia Gram negative bacteremia CAD. Hypertension. GERD. Plan: - Stop IV fluids for now, continue zosyn - continue seroquel BID for delirium, unclear if underlying cognitive impairment at this time. Haldol ordered prn for agitation - follow up blood cultures - hold home valsartan - continue asa and statin - with next blood draw collect VBG, his brief episode of dyspnea has improved this evening with position change. - cr is slowly trending up, to 1.24, continue to follow closely. - stopped tele due to agitation. - consider dexamethasone for COVID but given resolution of hypoxia prior to agitation it is not entirely clear if COVID or bacteremia is contributing to respiratory failure at this time. Time-Based Coding :: [TOTAL MINUTES] spent with patient and on the chart (including review of chart, obtaining history, exam, reviewing outside data, placing orders, documenting exam and treatment plan, and counseling patient) on [DATE]. Quality VTE Deep Vein Thrombosis/Pulmonary Embolism Present on Admission: No
[2024-08-07] MEDS: BENZONATATE 100 MG CAPSULE PO (16:36)
--- NOTE | 2024-08-07 17:32 | DI.RAD.S_ITS ---
PROCEDURE: XR CHEST 1V INDICATIONS: shortness of breath TECHNIQUE: One view of the chest was acquired. COMPARISON: [facility], CT, CT ANGIO CHEST PE PROTOCOL, 08/06/2024, 21:25. [facility], CR, XR CHEST 1V, 08/06/2024, 20:16. FINDINGS: Surgical changes and devices: Pacemaker Lungs and pleura: Question slight progression of right lung pneumonitis. No pleural effusions or pneumothorax. Mediastinum: Mediastinal contours appear normal. Heart size is normal. Bones and chest wall: No suspicious bony lesions. Overlying soft tissues appear unremarkable. IMPRESSION: Question slight interval worsening of pulmonary status. Dictated by: Juan Manuel Pa M.D. on 08/07/2024 at 18:26 Approved by: Juan Manuel Pa M.D. on 08/07/2024 at 18:30
--- NOTE | 2024-08-07 17:52 | PC.NURSE ---
Day Shift Note Pt alert and oriented to self only this morning, yelling out and resistant to care. Reoriented as able. Pt pulled tele leads, pulse ox, and oxygen off and IV out while attempting to get out of bed, very unsteady and resistant to assistance. MD at bedside. Pt stating he wants to go home but is unable to state the date, is able to state he is at a hospital. Able to deescalate and assisted pt back in bed. Pt agreeable to work with PT later and prn seroquel administered. Pt initially with SpO2 92-94% on RA but after working with PT and sitting in chair pt desatted to mid-80s and placed back on oxygen 4L. Tylenol and tesslon administered for pt complaint of discomfort and constant repositioning in chair. When patient asleep with head slumped forward SpO2 decreased to low 80s, pt very sleepy but does awake to voice, airway opened and oxymask placed up to 15L and MD notified and RT notified and at bedside. Pt lifted back to bed via mechanical lift. Able to decrease oxymask to 3L and SpO2 95-96%. VBG was ordered but ok to hold at this time per Dr. Mendze, collect if pt becomes somnolent again with decreased SpO2. Call light within reach. Bed alarm on.
[2024-08-07 17:58] LABS: Hematocrit 40.2 % (41-53); Hemoglobin 13.7 g/dL (13.5-17.5); Mean Corpuscular HGB Conc 34.2 % (30-36); Mean Corpuscular Hemoglobin 28.1 PG (26-34); Mean Corpuscular Volume 82.4 fL (80-100); Platelet Count 198 X10^3/uL (150-400); Red Blood Cell Count 4.88 X10^6/uL (4.5-5.9); Red Cell Distribution Width 14.7 % (11.6-14.8); White Blood Cell Count 21.4 X10^3/uL (4.5-11.0)
[2024-08-07 17:59] LABS: Add Manual Diff / Slide Review YES
[2024-08-07 18:09] LABS: Alanine Aminotransferase 23 IU/L (<50); Albumin 3.2 g/dL (3.5-5.0); Albumin Globulin Ratio 1.1 (1.0-2.8); Alkaline Phosphatase 83 U/L (38-126); Aspartate Aminotransferase 24 IU/L (17-59); BUN Creatinine Ratio 19.4 (6-22); Bilirubin Total 4.7 mg/dL (0.2-1.3); Blood Urea Nitrogen 24 mg/dL (9-20); Calcium 8.3 mg/dL (8.4-10.2); Carbon Dioxide 17 mmol/L (22-32); Chloride 108 mmol/L (98-107); Estimated Glomerular Filt Rate 57 mL/min (>60); Globulin 2.9 g/dL (1.7-4.1); Glucose 95 mg/dL (80-110); HEMOLYSIS < 15 (0-50); Magnesium 1.7 mg/dL (1.6-2.3); Potassium 3.5 mmol/L (3.4-5.1); Sodium 135 mmol/L (137-145); Total Protein 6.1 g/dL (6.3-8.2)
[2024-08-07 18:19] LABS: Troponin I 0.081 ng/mL (0.01-0.034)
[2024-08-07 18:56] LABS: Neutrophils Absolute Manual 13910 /uL (3000-5900); RBC Morphology Normal Morphology; Total Cells Counted 100
[2024-08-07] MEDS: ASPIRIN 81 MG CHEW TAB PO (20:29)
[2024-08-07] MEDS: ATORVASTATIN 20 MG TABLET 10 MG PO (20:29)
[2024-08-07] MEDS: MELATONIN 3 MG TABLET 9 MG PO (20:30)
[2024-08-08] VITALS: BP 96/53; PULSE 73; RESP 17; TEMP 37; O2SAT 98
[2024-08-08 04:00] VITALS: BP 95/59; PULSE 68; RESP 19; TEMP 36.2; O2SAT 98
[2024-08-08 06:53] LABS: Add Manual Diff / Slide Review YES; Hematocrit 38.3 % (41-53); Hemoglobin 13.1 g/dL (13.5-17.5); Mean Corpuscular HGB Conc 34.3 % (30-36); Mean Corpuscular Hemoglobin 28.1 PG (26-34); Platelet Count 186 X10^3/uL (150-400); Red Blood Cell Count 4.66 X10^6/uL (4.5-5.9); Red Cell Distribution Width 14.8 % (11.6-14.8); White Blood Cell Count 14.8 X10^3/uL (4.5-11.0)
[2024-08-08] MEDS: PIPERACILLIN/TAZO 3.375 GM in SODIUM CHLORIDE 0.9% 100 ML IV ×3 (06:55→22:55)
[2024-08-08 07:09] LABS: Alanine Aminotransferase 19 IU/L (<50); Alkaline Phosphatase 76 U/L (38-126); Aspartate Aminotransferase 24 IU/L (17-59); BUN Creatinine Ratio 18.9 (6-22); Bilirubin Total 3.7 mg/dL (0.2-1.3); Blood Urea Nitrogen 27 mg/dL (9-20); Calcium 8.4 mg/dL (8.4-10.2); Carbon Dioxide 22 mmol/L (22-32); Chloride 107 mmol/L (98-107); Estimated Glomerular Filt Rate 48 mL/min (>60); Globulin 2.9 g/dL (1.7-4.1); Glucose 80 mg/dL (80-110); HEMOLYSIS < 15 (0-50); Magnesium 1.9 mg/dL (1.6-2.3); Potassium 3.7 mmol/L (3.4-5.1); Sodium 136 mmol/L (137-145); Total Protein 5.9 g/dL (6.3-8.2)
[2024-08-08 07:24] LABS: Neutrophils Absolute Manual 8584 /uL (3000-5900); Total Cells Counted 100
[2024-08-08 07:26] LABS: Poikilocytosis 1+
[2024-08-08 08:00] VITALS: BP 105/57; PULSE 64; RESP 16; TEMP 37.3; O2SAT 99
--- NOTE | 2024-08-08 08:18 | PM.PN.1 ---
Subjective Subjective Interval history: Summary: 88 year old male admitted with acute encephalopathy, covid. Today he became quite agitated, was saturating well on room air, but very confused. He was given seroquel with improvement in encephalopathy, brief episode of respiratory distress. Blood cultures also grew a gram negative bacilli, he is on zosyn, WBC increased on repeat this afternoon, likely because he took out his IV and missed some antibiotics. S: Delirious, and more hypoxemic. Required his O2 to be turned up to 10 L this afternoon. Was not compliant with wearing his oxygen. Was given some Haldol. Exam Vital Signs (past 8 hours): - 08/08/24 04:00 Temperature 97.2 F L Pulse Rate 68 Respiratory Rate 19 Blood Pressure 95/59 L Pulse Oximetry 98 Oxygen Flow Rate 0 Oxygen Delivery Method Oximask Oxygen Flow Rate 0 Narrative Exam Narrative: NAD, confused at times. Fluent speech. Lungs are clear, normal rate and effort. No wheezing. Heart is regular, no murmur gallop or rub. Abdomen is soft, non distended. Extremities are free of edema. Objective Labs 08/08/24 06:00 08/08/24 06:00 Labs: Laboratory Results - last 24 hr 08/07/24 08/07/24 08/08/24 17:46 21:01 06:00 WBC 21.4 H 14.8 H RBC 4.88 4.66 Hgb 13.7 13.1 L Hct 40.2 L 38.3 L MCV 82.4 82.0 MCH 28.1 28.1 MCHC 34.2 34.3 RDW 14.7 14.8 Plt Count 198 186 Neut % (Auto) Not Reportable Not Reportable Lymph % (Auto) Not Reportable Not Reportable [place] % (Auto) Not Reportable Not Reportable Eos % (Auto) Not Reportable Not Reportable Baso % (Auto) Not Reportable Not Reportable Lymph # (Auto) Not Reportable Not Reportable [place] # (Auto) Not Reportable Not Reportable Baso # (Auto) Not Reportable Not Reportable Total Counted 100 100 Seg Neutrophils % 62.0 58.0 Band Neutrophils % 3.0 Lymphocytes % (Manual) 4.0 L 10.0 L Monocytes % (Manual) 26.0 H 32.0 H Eosinophils % (Manual) 3.0 Metamyelocytes % 2.0 H Neutrophils # (Manual) 72846 H 8584 H RBC Morphology Normal morphology See below Poikilocytosis 1+ H Sodium 135 L 136 L Potassium 3.5 3.7 Chloride 108 H 107 Carbon Dioxide 17 L 22 BUN 24 H 27 H Creatinine 1.24 1.43 H Estimated GFR 57 L 48 L BUN/Creatinine Ratio 19.4 18.9 Glucose 95 80 Calcium 8.3 L 8.4 Magnesium 1.7 1.9 Total Bilirubin 4.7 H 3.7 H AST 24 24 ALT 23 19 Alkaline Phosphatase 83 76 Troponin I 0.081 H Total Protein 6.1 L 5.9 L Albumin 3.2 L 3.0 L Globulin 2.9 2.9 Albumin/Globulin Ratio 1.1 1.0 A.calcoaceticus-baumannii cmplx PCR Not detected Bacteroides fragilis Not detected Alexia albicans (PCR) Not detected Alexia auris (PCR) Not detected C. glabrata (PCR) Not detected C. krusei (PCR) Not detected C. parapsilosis (PCR) Not detected C. tropicalis (PCR) Not detected C. neoform/gattii (PCR) Not detected Enterobacterales (PCR) Not detected E. cloacae complex PCR Not detected Enterococc faecalis PCR Not detected Enterococc faecium PCR Not detected E. coli (PCR) Not detected H. influenzae (PCR) Not detected Klebsiella aerogenes (PCR) Not detected Klebsiella oxytoca PCR Not detected Klebsiella pneumoniae Not detected List. monocytogenes PCR Not detected N. meningitidis (PCR) Not detected Proteus species (PCR) Not detected Salmonella spp. (PCR) Not detected Serratia marcescens PCR Not detected Staphylococcus sp PCR Not detected Staph aureus (PCR) Not detected mecA/C & MREJ Resist Gene Not applicable mecA/C-Methicil Resis Gene Not applicable mcr-1 Colistin Res Gene PCR Not applicable Staph epidermidis (PCR) Not detected Staph lugdunensis PCR Not detected S. maltophilia (PCR) Not detected Streptococcus sp PCR Not detected Group A Strep (PCR) Not detected Strep agalactiae (PCR) Not detected Strep pneumoniae (PCR) Not detected P. aeruginosa (PCR) Detected Daniel/B-Vanco Res Genes Not applicable blaIMP Car res Gene PCR Not detected KPC-Carbap Res Gene PCR Not detected blaNDM Car Res Gene PCR Not detected OXA-48 Carbapenem Resis Gene (PCR) Not applicable blaVIM Car Res Gene PCR Not detected CTX-M Gene Resistance (PCR) Not detected PFSH Medical History Pacemaker CVA (cerebral vascular accident) Hyperlipidemia Social History household members: spouse Smoking Status: Never smoker alcohol intake: current Assessment & Plan Assessment & Plan narrative: 1. Sepsis with GNB bacteremia, active. 2. Septic encephalopathy, active. 3. Acute respiratory failure with hypoxia, active. 4. JOAN, active. 5. Community acquired pneumonia, active. 6. CAD, stable. 7. Hypertension, stable. 8. GERD, stable. Plan: - Continue zosyn - continue seroquel BID for delirium, unclear if underlying cognitive impairment at this time. Haldol ordered prn for agitation - follow up blood cultures - hold home valsartan - continue asa and statin - with next blood draw collect VBG, his brief episode of dyspnea has improved this evening with position change. - cr is slowly trending up, to 1.24, continue to follow closely. - Add dexamethasone for COVID given hypoxia. -repeat CXR Time-Based Coding :: [TOTAL MINUTES] spent with patient and on the chart (including review of chart, obtaining history, exam, reviewing outside data, placing orders, documenting exam and treatment plan, and counseling patient) on [DATE]. Quality VTE Deep Vein Thrombosis/Pulmonary Embolism Present on Admission: No
[2024-08-08] MEDS: CYANOCOBALAMIN (VITAMIN B-12) 500 MCG TABLET 3000 MCG PO (08:28)
[2024-08-08] MEDS: QUETIAPINE 25 MG TABLET PO ×2 (08:28→20:54)
[2024-08-08] MEDS: PANTOPRAZOLE DR 40 MG TABLET PO (08:28)
[2024-08-08] MEDS: ASCORBIC ACID 500 MG TABLET PO (08:28)
[2024-08-08] MEDS: MULTIVITAMIN 1 TABLET 1 TAB PO (08:29)
[2024-08-08 12:00] VITALS: BP 141/84; PULSE 118; RESP 16; TEMP 36.2; O2SAT 97
[2024-08-08] MEDS: HALOPERIDOL 5 MG/ML VIAL IM (13:26)
--- NOTE | 2024-08-08 14:03 | CM.DPC ---
DCP Cont. Reviewed EMR and team rounds for status updates. Pt still coughing profusely throughout the day today. Pt will need SNF at d/c, will need PASSAR done. Monday d/c planning will address: - Discussion with spouse about discharge plan and SNF preference - SNF search, need ISO bed due to recent COVID infection - Auth secured through [employer]
[2024-08-08] MEDS: DEXAMETHASONE 10 MG/ML VIAL 6 MG IV (14:37)
--- NOTE | 2024-08-08 15:41 | PT-IP ANOTE ---
PT reviews chart and checks in on pt. PT speaks with nsg who requests hold PT at this time d/t pt just got to sleep. He con't to require O2. Con't PT efforts next date.
[2024-08-08 16:00] VITALS: BP 125/62; PULSE 73; RESP 16; TEMP 37.4; O2SAT 99
[2024-08-08 19:31] LABS: BUN Creatinine Ratio 21.1 (6-22); Blood Urea Nitrogen 24 mg/dL (9-20); Calcium 8.2 mg/dL (8.4-10.2); Carbon Dioxide 18 mmol/L (22-32); Chloride 111 mmol/L (98-107); Estimated Glomerular Filt Rate > 60 mL/min (>60); Glucose 118 mg/dL (80-110); HEMOLYSIS < 15 (0-50); Potassium 3.8 mmol/L (3.4-5.1); Sodium 136 mmol/L (137-145)
[2024-08-08 20:00] VITALS: BP 125/62; PULSE 76; RESP 18; TEMP 37.1; O2SAT 99
[2024-08-08] MEDS: MELATONIN 3 MG TABLET 9 MG PO (20:53)
[2024-08-08] MEDS: ATORVASTATIN 20 MG TABLET 10 MG PO (20:54)
[2024-08-08] MEDS: ASPIRIN 81 MG CHEW TAB PO (20:54)
[2024-08-08] MEDS: HEPARIN 5,000 UNIT/ML VIAL 5000 UNIT SUBCUT (20:56)
[2024-08-09] VITALS (33 sets, daily range): BP systolic 119–144; BP diastolic 56–74; PULSE 30–195; RESP 16–19; TEMP 36.1–37.1; O2SAT 81–97
[2024-08-09 05:27] LABS: Add Manual Diff / Slide Review NO; Basophils Absolute Auto 0 /uL (0-100); Basophils Percent Auto 0.1 % (0-2); Eosinophils Absolute Auto 0 /uL (0-450); Eosinophils Percent Auto 0.1 % (2-4); Hematocrit 38.1 % (41-53); Hemoglobin 13.1 g/dL (13.5-17.5); Lymphocytes Absolute Auto 700 /uL (1100-4500); Lymphocytes Percent Auto 8.4 % (25-40); Mean Corpuscular HGB Conc 34.4 % (30-36); Mean Corpuscular Hemoglobin 28.2 PG (26-34); Mean Corpuscular Volume 81.9 fL (80-100); Monocytes Absolute Auto 1200 /uL (0-900); Monocytes Percent Auto 15.1 % (3-14); Neutrophils Absolute Auto 6300 /uL (1500-7000); Neutrophils Percent Auto 76.3 % (50-75); Platelet Count 196 X10^3/uL (150-400); Red Blood Cell Count 4.65 X10^6/uL (4.5-5.9); Red Cell Distribution Width 14.8 % (11.6-14.8); White Blood Cell Count 8.2 X10^3/uL (4.5-11.0)
[2024-08-09 05:53] LABS: Alanine Aminotransferase 23 IU/L (<50); Alkaline Phosphatase 76 U/L (38-126); Aspartate Aminotransferase 26 IU/L (17-59); BUN Creatinine Ratio 22.8 (6-22); Bilirubin Total 2.1 mg/dL (0.2-1.3); Blood Urea Nitrogen 23 mg/dL (9-20); Calcium 8.5 mg/dL (8.4-10.2); Carbon Dioxide 18 mmol/L (22-32); Chloride 112 mmol/L (98-107); Estimated Glomerular Filt Rate > 60 mL/min (>60); Globulin 2.9 g/dL (1.7-4.1); Glucose 103 mg/dL (80-110); HEMOLYSIS < 15 (0-50); Potassium 3.9 mmol/L (3.4-5.1); Sodium 137 mmol/L (137-145); Total Protein 5.9 g/dL (6.3-8.2)
[2024-08-09] MEDS: PIPERACILLIN/TAZO 3.375 GM in SODIUM CHLORIDE 0.9% 100 ML IV (06:27)
--- NOTE | 2024-08-09 08:58 | P.PN_ITS ---
Subjective Subjective Interval history: Summary: 88 year old male admitted with acute encephalopathy, covid. Today he became quite agitated, was saturating well on room air, but very confused. He was given seroquel with improvement in encephalopathy, brief episode of respiratory distress. Blood cultures also grew a gram negative bacilli, he is on zosyn, WBC increased on repeat this afternoon, likely because he took out his IV and missed some antibiotics. S: He was off oxygen, and breathing comfortably. He was sitting in his chair. He denies any pain, or dyspnea. He has a light cough. He does, however, say that he thinks he was going to tonight. He also adds that he was old and is comfortable if this is the end of his time. Exam Vital Signs (past 8 hours): - 08/09/24 04:00 08/09/24 08:00 Temperature 98.6 F 97.7 F Pulse Rate 84 65 Respiratory Rate 18 16 Blood Pressure 140/74 119/56 L Pulse Oximetry 94 97 Oxygen Flow Rate 0 0 Oxygen Delivery Method Oximask Oxygen Flow Rate 0 Narrative Exam Narrative: NAD, alert and oriented. Fluent speech. Volatile emotional state. Lungs are clear, normal rate and effort. Heart is regular, no murmur gallop or rub. Abdomen is soft, non distended. Extremities are free of edema. Objective Imaging Chest x-ray: Radiologist's impression: Increased diffuse congestion. Labs 08/09/24 04:41 08/09/24 04:41 Labs: Laboratory Results - last 24 hr 08/08/24 08/09/24 08/09/24 19:07 04:41 04:41 WBC 8.2 RBC 4.65 Hgb 13.1 L Hct 38.1 L MCV 81.9 MCH 28.2 MCHC 34.4 RDW 14.8 Plt Count 196 Neut % (Auto) 76.3 H Lymph % (Auto) 8.4 L [place] % (Auto) 15.1 H Eos % (Auto) 0.1 L Baso % (Auto) 0.1 Neut # (Auto) 6300 Lymph # (Auto) 700 L [place] # (Auto) 1200 H Eos # (Auto) 0 Baso # (Auto) 0 Sodium 136 L 137 Potassium 3.8 3.9 Chloride 111 H 112 H Carbon Dioxide 18 L 18 L BUN 24 H 23 H Creatinine 1.14 1.01 Estimated GFR > 60 > 60 BUN/Creatinine Ratio 21.1 22.8 H Glucose 118 H 103 Calcium 8.2 L 8.5 Magnesium 2.0 2.0 Total Bilirubin 2.1 H AST 26 ALT 23 Alkaline Phosphatase 76 Total Protein 5.9 L Albumin 3.0 L Globulin 2.9 Albumin/Globulin Ratio 1.0 PFSH Medical History Pacemaker CVA (cerebral vascular accident) Hyperlipidemia Social History household members: spouse Smoking Status: Never smoker alcohol intake: current Assessment & Plan Assessment & Plan narrative: 1. Sepsis with pseudomonas UTI and bacteremia, improving. 2. Septic encephalopathy, improved. 3. Acute respiratory failure with hypoxia, improved. 4. JOAN, improved. 5. Covid pneumonia, active. 6. CAD, stable. 7. Hypertension, stable. 8. GERD, stable. Plan: - Continue zosyn (increase dose to 4.5 g Q 8 hours for Pseudomonas) - continue seroquel BID for delirium, unclear if underlying cognitive impairment at this time. Haldol ordered prn for agitation - hold home valsartan - continue asa and statin - Add dexamethasone for COVID given hypoxia. - repeat CXR indicate a mild volume overload, Lasix 20 IV x1. - monitor breathing. JORGE: 08/11. Home with . Time-Based Coding :: [TOTAL MINUTES] spent with patient and on the chart (including review of chart, obtaining history, exam, reviewing outside data, placing orders, documenting exam and treatment plan, and counseling patient) on [DATE]. Quality VTE Deep Vein Thrombosis/Pulmonary Embolism Present on Admission: No
[2024-08-09] MEDS: DEXAMETHASONE 10 MG/ML VIAL 6 MG IV (09:00)
[2024-08-09] MEDS: HEPARIN 5,000 UNIT/ML VIAL 5000 UNIT SUBCUT ×2 (09:00→20:14)
[2024-08-09] MEDS: CYANOCOBALAMIN (VITAMIN B-12) 500 MCG TABLET 3000 MCG PO (09:01)
[2024-08-09] MEDS: MULTIVITAMIN 1 TABLET 1 TAB PO (09:02)
[2024-08-09] MEDS: ASCORBIC ACID 500 MG TABLET PO (09:02)
[2024-08-09] MEDS: PANTOPRAZOLE DR 40 MG TABLET PO (09:02)
[2024-08-09] MEDS: FUROSEMIDE 20 MG/2 ML VIAL IV (10:43)
[2024-08-09] MEDS: QUETIAPINE 25 MG TABLET PO ×2 (10:46→20:15)
--- NOTE | 2024-08-09 13:40 | DIET.CONS ---
Dietary Consultation Note Admission Date: 08/06/2024 23:19 Assessment: 88 y M admitted for covid and after GLF. Dietitian consulted for poor oral intakes at home. Spoke to RN, reports pt confused right now, unlikely to be able to participate in assessment. Pt had protein supplement drink on tray in front of him on recliner. EMR reviewed. Per assessment back in July, family reported pt tolerates softer foods better and does chocolate Boost at home sometimes. +2.3 kg since admission in July. Ht: 187.96 cm Wt: 93 kg BMI: 26.2 UBW: 90.718 kg on 07/15/23, 104.55 kg over the summer 2023 (-11% weight loss within 8 months, non-severe) Last BM: 08/08/24 (08/08/24 12:50) MNA: Byron Score: 21 Diet: 08/07/24 Breakfast Heart Healthy Diet Diet Modifications: Nutrition Percent Meal Consumed 50% 08/09/24 10:22 Percent Meal Consumed refused meal 08/07/24 18:00 Labs: RBC 4.65 X10^6/uL (4.5-5.9) 08/09/24 04:41 Hgb 13.1 g/dL (13.5-17.5) L 08/09/24 04:41 Hct 38.1 % (41-53) L 08/09/24 04:41 Creatinine 1.01 mg/dL (0.66-1.25) 08/09/24 04:41 Lactate 1.7 mmol/L (0.7-2.1) 08/07/24 07:22 NT-Pro-B Natriuret Pep 882 pg/mL (<450) H 08/06/24 20:17 Nutrition Diagnosis: Inadequate oral intakes r/t decreased appetite aeb pt reported refusing meals, <50% PO intakes since admission Interventions: -Coordinated for softer foods and chocolate ONS BID EER: [id number] kcals (22-25 kcals/kg per sepsis) 110 g protein (1.2 g/kg per sepsis) Monitoring/Evaluations: po intakes, ons tolerance Electronically Signed by: Ni Brooks 08/09/24 13:40 Clinical Dietitian [address] [id number]
[2024-08-09] MEDS: PIPERACILLIN/TAZO 4.5 GM in SODIUM CHLORIDE 0.9% 100 ML IV ×2 (16:12→23:37)
--- NOTE | 2024-08-09 16:21 | CM.DPNOTE ---
DCP Cont Reviewed chart. Placed call to spouse Gris Cervantes [phone] to review discharge plan. Spouse recovering from COVID PNA and a recent hospitalization, says patient will need to return to a facility but prefers it not be back to [facility]. Spouse asks about [facility], Explained that [facility] is not contracted with patient's [employer]. Spouse okay with referrals to [facility] and [facility]. Sp prefers not to have to drive to [place]. Emailed referrals to both [facility] and [facility]; Cindy at [facility] is reviewing and would need an ISO bed in order to accept patient. In addition, patient has been struggling with delirium which will need to be improved before admission. No response today from Johanna/chuck at [facility]. CM team will plan to follow closely for coordination of discharge plan. PASRR needed. KELSEA
--- NOTE | 2024-08-09 16:37 | PT-IP ANOTE ---
checked on pt and pt refused PT. pt sitting on the chair and stated that he cannot talk and cannot walk and will in 5 mins. asked pt again regarding PT and pt refused to do PT. stated that he will just sit on the chair.
[2024-08-09 19:48] LABS: BUN Creatinine Ratio 22.6 (6-22); Blood Urea Nitrogen 26 mg/dL (9-20); Calcium 8.8 mg/dL (8.4-10.2); Carbon Dioxide 18 mmol/L (22-32); Chloride 107 mmol/L (98-107); Estimated Glomerular Filt Rate > 60 mL/min (>60); Glucose 149 mg/dL (80-110); HEMOLYSIS < 15 (0-50); Potassium 3.6 mmol/L (3.4-5.1); Sodium 136 mmol/L (137-145)
[2024-08-09] MEDS: ATORVASTATIN 20 MG TABLET 10 MG PO (20:14)
[2024-08-09] MEDS: ASPIRIN 81 MG CHEW TAB PO (20:15)
[2024-08-09] MEDS: MELATONIN 3 MG TABLET 9 MG PO (20:15)
[2024-08-09] MEDS: SODIUM CHLORIDE 0.9% FLUSH 10 ML IV (20:41)
[2024-08-10] VITALS (20 sets, daily range): BP systolic 128–168; BP diastolic 69–85; PULSE 56–86; RESP 17–20; TEMP 35.6–37; O2SAT 80–99
[2024-08-10 05:09] LABS: Add Manual Diff / Slide Review NO; Basophils Absolute Auto 0 /uL (0-100); Basophils Percent Auto 0.3 % (0-2); Eosinophils Absolute Auto 0 /uL (0-450); Eosinophils Percent Auto 0.3 % (2-4); Hematocrit 38.4 % (41-53); Hemoglobin 13.4 g/dL (13.5-17.5); Lymphocytes Absolute Auto 800 /uL (1100-4500); Lymphocytes Percent Auto 9.2 % (25-40); Mean Corpuscular HGB Conc 34.9 % (30-36); Mean Corpuscular Hemoglobin 28.7 PG (26-34); Mean Corpuscular Volume 82.4 fL (80-100); Monocytes Absolute Auto 1400 /uL (0-900); Monocytes Percent Auto 15.6 % (3-14); Neutrophils Absolute Auto 6900 /uL (1500-7000); Neutrophils Percent Auto 74.6 % (50-75); Platelet Count 211 X10^3/uL (150-400); Red Blood Cell Count 4.66 X10^6/uL (4.5-5.9); White Blood Cell Count 9.2 X10^3/uL (4.5-11.0)
[2024-08-10 05:24] LABS: Alanine Aminotransferase 25 IU/L (<50); Albumin 3.1 g/dL (3.5-5.0); Albumin Globulin Ratio 1.1 (1.0-2.8); Alkaline Phosphatase 78 U/L (38-126); Aspartate Aminotransferase 26 IU/L (17-59); Blood Urea Nitrogen 25 mg/dL (9-20); Calcium 8.6 mg/dL (8.4-10.2); Carbon Dioxide 23 mmol/L (22-32); Chloride 108 mmol/L (98-107); Estimated Glomerular Filt Rate > 60 mL/min (>60); Globulin 2.9 g/dL (1.7-4.1); Glucose 93 mg/dL (80-110); HEMOLYSIS < 15 (0-50); Magnesium 1.9 mg/dL (1.6-2.3); Potassium 3.5 mmol/L (3.4-5.1); Sodium 138 mmol/L (137-145)
--- NOTE | 2024-08-10 07:40 | P.PN_ITS ---
Subjective Subjective Interval history: Summary: 88 year old male admitted with acute encephalopathy, covid. Today he became quite agitated, was saturating well on room air, but very confused. He was given seroquel with improvement in encephalopathy, brief episode of respiratory distress. Blood cultures also grew a gram negative bacilli, he is on zosyn, WBC increased on repeat this afternoon, likely because he took out his IV and missed some antibiotics. S: Some visual hallucinations (floor moving), otherwise he is doing better. No pain or dyspnea. Exam Vital Signs (past 8 hours): - 08/10/24 00:47 08/10/24 05:17 Temperature 97.6 F 98.6 F Pulse Rate 86 56 L Respiratory Rate 19 18 Blood Pressure 152/69 H 168/80 H Pulse Oximetry 96 99 Oxygen Flow Rate 0 0 Oxygen Delivery Method Room Air Oxygen Flow Rate 0 Narrative Exam Narrative: NAD, alert and oriented. Fluent speech. Lungs are clear, normal rate and effort. Heart is regular, no murmur gallop or rub. Abdomen is soft, non distended. Extremities are free of edema. Objective Labs 08/10/24 04:10 08/10/24 04:10 Labs: Laboratory Results - last 24 hr 08/09/24 08/10/24 19:00 04:10 WBC 9.2 RBC 4.66 Hgb 13.4 L Hct 38.4 L MCV 82.4 MCH 28.7 MCHC 34.9 RDW 15.0 H Plt Count 211 Neut % (Auto) 74.6 Lymph % (Auto) 9.2 L Highland % (Auto) 15.6 H Eos % (Auto) 0.3 L Baso % (Auto) 0.3 Neut # (Auto) 6900 Lymph # (Auto) 800 L Highland # (Auto) 1400 H Eos # (Auto) 0 Baso # (Auto) 0 Sodium 136 L 138 Potassium 3.6 3.5 Chloride 107 108 H Carbon Dioxide 18 L 23 BUN 26 H 25 H Creatinine 1.15 1.04 Estimated GFR > 60 > 60 BUN/Creatinine Ratio 22.6 H 24.0 H Glucose 149 H 93 Calcium 8.8 8.6 Magnesium 1.9 Total Bilirubin 2.0 H AST 26 ALT 25 Alkaline Phosphatase 78 Total Protein 6.0 L Albumin 3.1 L Globulin 2.9 Albumin/Globulin Ratio 1.1 [facility] Medical History Pacemaker CVA (cerebral vascular accident) Hyperlipidemia Social History household members: spouse Smoking Status: Never smoker alcohol intake: current Assessment & Plan Assessment & Plan narrative: 1. Sepsis with pseudomonas UTI and bacteremia, improving. 2. Septic encephalopathy, improving. 3. Acute respiratory failure with hypoxia, improved. 4. JOAN, improved. 5. Covid pneumonia, active. 6. CAD, stable. 7. Hypertension, stable. 8. GERD, stable. Plan: - Switch to Cefepime. D/w ID this weekend. - continue seroquel BID for delirium, unclear if underlying cognitive impairment at this time. Haldol ordered prn for agitation - hold home valsartan - continue asa and statin - Continue dexamethasone for COVID given hypoxia. JORGE: 08/11. Home with HH. Time-Based Coding :: [TOTAL MINUTES] spent with patient and on the chart (including review of chart, obtaining history, exam, reviewing outside data, placing orders, documenting exam and treatment plan, and counseling patient) on [DATE]. Quality VTE Deep Vein Thrombosis/Pulmonary Embolism Present on Admission: No
[2024-08-10] MEDS: PANTOPRAZOLE DR 40 MG TABLET PO (08:03)
[2024-08-10] MEDS: QUETIAPINE 25 MG TABLET PO (08:03)
--- NOTE | 2024-08-10 08:54 | PC.NURSE ---
Addendum entered by Jarek Lopez R.N. 08/10/24 11:52: 1100 - Patient calm and cooperative, but still impulsive and confused. Agreeable to new IV and working with therapies. Original Note: 0730 - Patient agitated, repeatedly standing up without assistance and triggering chair alarm. States, I need to call my to come get me, that's the plan, the plan is for her to get better today and get me, unable to redirect or reorient. Patient agreeable to wait in chair while a working room phone was found. Chair alarm placed and staff within view of patient. Patient removed IV, resistant and uncooperative to new IV being placed, Dr Stovall made aware. 0815 - Continues to be impulsive and agitated, repeatedly standing up without assistance. PO Seroquel adminstered per AUG. Agreeable to sit and have breakfast 0900 - Patient calmer, but still impulsive. Fixated on speaking to in order to leave. Continuing attempts to reorient patient to situation and plan.
[2024-08-10] MEDS: DEXAMETHASONE 10 MG/ML VIAL 6 MG IV (11:02)
[2024-08-10] MEDS: CEFEPIME 2 GM in SODIUM CHLORIDE 0.9% 100 ML IV ×2 (11:02→18:20)
--- NOTE | 2024-08-10 11:10 | PT.IPTN ---
Current Diagnoses Pneumonia, unspecified organism (08/06/24) Weakness (08/06/24) Physical Therapy Treatment Note M2 PT-IP Current Condition Start: 08/07/24 15:35 Freq: NEEDED Status: Active Protocol: Document 08/07/24 13:58 AB (Rec: 08/07/24 15:54 AB [id number]) Physical Therapy Current Condition Current Condition Evaluation Date 08/07/24 Treatment Diagnosis Covid; PNA; difficulty in walking Onset Date 08/06/24 M3 PT-IP Subjective Start: 08/07/24 15:35 Freq: NEEDED Status: Active Protocol: Document 08/10/24 11:10 AB (Rec: 08/10/24 12:47 AB [id number]) Subjective Physical Therapy Visit Type Type Treatment Note Visit Start Time 11:10 Visit Stop Time 11:55 Number of TAX STAFF ACCOUNTANT Visits 0 Physical Therapy Visit Comments Patient Comments needs motivation to participate M4 PT-IP Mobility and Gait Start: 08/07/24 15:35 Freq: NEEDED Status: Active Protocol: Document 08/10/24 11:10 AB (Rec: 08/10/24 12:47 AB [id number]) PT-Transfer Assessment Sit to and From Stand Sit to and from Stand Contact Guard Assistance,1 Person Assistance,Use of Upper Extremities Equipment Transfer Assistive Device Gait Belt,Front Wheeled Walker Orthotic/Prosthetic Devices or Brace: No Comments Mobility Comments checked with nurse and stated that pt is doing well and been walking in his room SBA. checked on pt and pt initially refusing PT. stated that he cannot walk due to the shots that he was given. pt continues to have confusion. placed FWW in front of pt and pt completed sit to stand CGA and ambulated in room ~ 35 ft using fWW SBA to CGA. (+) LOB during turning. pt sat back on his chair. (+) SOB. O2 sat checked: 85%. cued for deep breathin-88%. nursing informed and agreed to give pt supplemental O2: 2L/min. O2 sat increased: 91%. asked pt to do up/down step stool as pt has 2 steps to enter his house but pt refused. positioned pt on the chair. call light and table placed within reach. O2 sat remains: 91- 93% with supplemental O2 on. informed nurse. Gait Assessment Gait Gait Assistance Required: Standby Assistance,Contact Guard Assist Distance (Feet) 35 Able to Maintain Weight Bearing Status Yes During Gait Assistive Devices Assistive Device Gait Belt,Front Wheeled Walker Orthotic/Prosthetic Devices or Brace: No Gait Deviations General Gait Pattern Decreased Stride Length, Decreased Feet Clearance Factors Limiting Gait Function Factors Limiting Gait Function Decreased Activity Tolerance, Decreased Strength,Difficulty Following Directions,Limited Range of Motion,Poor Balance, Poor Safety Awareness, Respiratory Distress M5 PT-IP Objective Assessments Start: 08/07/24 15:35 Freq: NEEDED Status: Active Protocol: Document 08/07/24 13:58 AB (Rec: 08/07/24 15:54 AB [id number]) Orientation Orientation/Cognition Level of Alertness Confusional State Orientation Name Language Function Ability Hard of Hearing Safety Awareness Decreased Safety Awareness Memory Description Short Term Impaired Strength Lower Extremity Strength Assessment Within Functional Limits Muscle Tone Muscle Tone WNL Yes M6 PT-IP Treatment Start: 08/07/24 15:35 Freq: NEEDED Status: Active Protocol: Document 08/10/24 11:10 AB (Rec: 08/10/24 12:47 AB [id number]) Physical Therapy Treatment Education Education Provided Safety M7 PT-IP Assessment and Plan Start: 08/07/24 15:35 Freq: NEEDED Status: Active Protocol: Document 08/10/24 11:10 AB (Rec: 08/10/24 12:47 AB [id number]) PT Summary Assessment and Plan Potential Rehabilitation Potential Fair Summary Impairments Pain,ROM,Strength,Balance, Coordination,Sensation,Tone, Cognition,Bed Mobility, Transfers,Gait,Activity Tolerance Progress Towards Goals Slow Progress due to Activity Tolerance,Slow Progress - Other Assessment Summary pt progressing slowly with mobility and able to ambulate using FWW SBA to CGA ~ 35 ft but with (+) LOB during turning requiring CGA. pt continues to have confusion affecting safety awareness and level of assistance needed. pt lives with spouse but currently spouse is also has covid and may not be able to assist pt. pt will benefit from SNF rehab. will continue to assess. Goals Bed Mobility Goal Minimal Assistance Transfer Goal Minimal Assistance,Front Wheeled Walker Gait Goal Minimal Assistance,Front Wheel Walker Gait Distance 50 Other Goals improve bed mobility, transfers, ambulation using FWW ~ 150 ft SBA up/down 2 steps CGA Days to Meet Goals 10 Frequency of Treatment Frequency Of Treatment Once a Day Treatment Plan Physical Therapy Treatment Plan Bed Mobility Training,Transfer Training,Gait Training, Therapeutic Exercise,Balance Retraining,Discharge Planning, Hot or Cold Pack,Neuromuscular Re-ed,Coordination Retraining ,Manual Therapy Precautions Other Precautions falls; Covid droplet precautions, MRSA precautions Recommendations To Nursing Amount of Assist Needed 1 Person Assist Discharge Recommendations PT Discharge Recommendations SNF Rehab Transportation Needs at Discharge Wheelchair/Cabulance
--- NOTE | 2024-08-10 15:56 | CM.DPC ---
DCP SNF vs HH Per MD, pt making progress and could be stable to d/c soon once SNF bed secured or safe for home. Per PT, pt with some ongoing confusion and CGA to sometimes 1PA and could benefit from SNF vs progress for d/c home with spouse. SW followed up on the previously faxed SNFs: [facility]- no [facility]- no private room at this time, full [facility]- left msg today and yesterday, no admissions staff on the w/e at this time. SW made additional referral to [facility] to determine if they can accept after review. Barriers to SNF remain pt's underlying confusion/dementia at baseline, COVID+ and needing Isolation room, and would need [employer] auth and pt might be close to his baseline. Plan; SW to follow closely in the AM with family after further PT as pt might need to d/c home if SNF not an option through insurance and available beds. CHERRI Ryan
[2024-08-10] MEDS: ASPIRIN 81 MG CHEW TAB PO (19:55)
[2024-08-10] MEDS: ATORVASTATIN 20 MG TABLET 10 MG PO (19:55)
[2024-08-10] MEDS: QUETIAPINE 25 MG TABLET 75 MG PO (19:56)
[2024-08-10] MEDS: HEPARIN 5,000 UNIT/ML VIAL 5000 UNIT SUBCUT (19:56)
[2024-08-10] MEDS: SODIUM CHLORIDE 0.9% FLUSH 10 ML IV (19:57)
--- NOTE | 2024-08-10 21:43 | PC.NURSE ---
pt b/p slightly elevated 161/85, no hydralazine iv given due to patient slightly anxious. Pt seroquel increase to 75 mg tonight. pt currently 1:1
[2024-08-10] MEDS: MELATONIN 3 MG TABLET 9 MG PO (21:50)
[2024-08-11] VITALS (14 sets, daily range): BP systolic 120–173; BP diastolic 72–84; PULSE 62–75; RESP 18–20; TEMP 36.3–37; O2SAT 79–100
[2024-08-11] MEDS: CEFEPIME 2 GM in SODIUM CHLORIDE 0.9% 100 ML IV ×3 (01:31→17:42)
[2024-08-11] MEDS: HALOPERIDOL 5 MG/ML VIAL IV (01:32)
--- NOTE | 2024-08-11 06:28 | PC.NURSE ---
PT agitated on and off throughout the night. Inappropriate with the female nursing staff. constantly trying to get out of bed. States I see fish in that shell, I want to get out and go to my bed and sleep'. pt was taken to the bathroom multiple times tonight, given a snack but still needed one dose of Haldol ivp. pt was able to sleep a bit after the Haldol.
[2024-08-11] MEDS: SODIUM CHLORIDE 0.9% FLUSH 10 ML IV ×2 (10:36→21:57)
[2024-08-11] MEDS: DEXAMETHASONE 10 MG/ML VIAL 6 MG IV (10:37)
--- NOTE | 2024-08-11 10:50 | PT-IP ANOTE ---
PT checks in on pt and speaks with nsg and nsg reports pt just getting to sleep. Will con't PT efforts at another time.
--- NOTE | 2024-08-11 13:46 | CM.DPC ---
DCP Cont: Per MD and RN, pt with some impulsivity and agitation overnight and given one dose of Haldol and pt now sleeping much of the day with a sitter although pt likely does not need a sitter still at this time this afternoon, waiting to see pt's cognition and behavior once he wakes more. Per PT yesterday, pt was SBA with FWW and cueing and PT unable to work with pt today due to drowsiness. SW called pt's spouse who is recovering from COVID pneumonia herself and updated her on the pt's status at this time and the barriers to the attempts at SNF (COVID+ and no isolation beds, would need to be near the RN station due to impulsiveness, need for Haldol last night, mobilizing too well for [employer] to likely auth SNF). SW expressed that as of yesterday pt was not needing physical assist but SBA and mostly reminders and cueing and therefore pt likely getting close to being medically stable to discharge the hospital and would need a home plan. Spouse feels better about home plan now that pt not requiring physical assist and would be agreeable with HH (no HH preference after hearing the HH Choice List) but was still hopeful for a facility while she is recovering herself. SW inquired about their Dtr and WATSON assist and she states they are caring for WATSON's 90 yo father already and do not have ability to assist much. Spouse concerned if pt has ongoing confusion/behaviors and spouse states pt has never been diagnosed with Dementia. SW encouraged her to seek out support group for CGs and to learn coping skills if pt's confusion does not resolve and spouse appreciative and aware pt might be stable for d/c in 1-2 days. Plan; SW to follow closely for pt's cognition and PT tomorrow when haldol wears off to confirm SBA and plan of home and will need HH referral. CHERRI Ryan
--- NOTE | 2024-08-11 14:10 | P.PN_ITS ---
Subjective Subjective Interval history: Summary: He was admitted and found to have Pseudomonas UTI and bacteremia. He also had COVID. He did develop hypoxemia and was treated with dexamethasone. He was improving. He was a pansensitive Pseudomonas and Infectious Disease was asked whether or not oral levofloxacin would be adequate. Their concerns were QTC, aneurysm, or other QT prolonging agents. He has been on Seroquel here for his impulsive behavior and did have a dose of Haldol last night. I think he will go home without these agents. S: He feels much better today and thinks that he can likely go home to his tomorrow. He was mental status, while I would, it is described as baseline by a family member who was here on August 10. Exam Vital Signs (past 8 hours): - 08/11/24 09:00 08/11/24 11:00 Pulse Oximetry 97 Oxygen Delivery Method Room Air Oxygen Flow Rate 0 Oxygen Delivery Method Room Air Oxygen Flow Rate 0 Narrative Exam Narrative: NAD, alert and oriented. Fluent speech. Lungs are clear, normal rate and effort. Heart is regular, no murmur gallop or rub. Abdomen is soft, non distended. Extremities are free of edema. Objective Labs 08/10/24 04:10 08/10/24 04:10 [facility] Medical History Pacemaker CVA (cerebral vascular accident) Hyperlipidemia Social History household members: spouse Smoking Status: Never smoker alcohol intake: current Assessment & Plan Assessment & Plan narrative: 1. Sepsis with pseudomonas UTI and bacteremia, improving. 2. Septic encephalopathy, improving. 3. Acute respiratory failure with hypoxia, resolved. 4. JOAN, improved. 5. Covid pneumonia, active. 6. CAD, stable. 7. Hypertension, stable. 8. GERD, stable. Plan: - Switched to Cefepime. Discussed with ID this weekend. - continue seroquel QPM for delirium, unclear if underlying cognitive impairment at this time. - hold home valsartan - continue asa and statin - Continue dexamethasone for COVID given hypoxia. Time-Based Coding :: [TOTAL MINUTES] spent with patient and on the chart (including review of chart, obtaining history, exam, reviewing outside data, placing orders, documenting exam and treatment plan, and counseling patient) on [DATE]. Quality VTE Deep Vein Thrombosis/Pulmonary Embolism Present on Admission: No
[2024-08-11] MEDS: SODIUM CHLORIDE 0.9% 250 ML 21 ML IV (18:12)
[2024-08-11] MEDS: QUETIAPINE 25 MG TABLET 75 MG PO (20:26)
[2024-08-11] MEDS: ASPIRIN 81 MG CHEW TAB PO (20:26)
[2024-08-11] MEDS: ATORVASTATIN 20 MG TABLET 10 MG PO (20:27)
[2024-08-11] MEDS: MELATONIN 3 MG TABLET 9 MG PO (20:27)
[2024-08-11] MEDS: HEPARIN 5,000 UNIT/ML VIAL 5000 UNIT SUBCUT (20:35)
[2024-08-12] VITALS (7 sets, daily range): BP systolic 122–173; BP diastolic 70–93; PULSE 75–78; RESP 18–20; TEMP 35.9; O2SAT 93–99
[2024-08-12] MEDS: HYDRALAZINE 20 MG/ML VIAL 10 MG IV
[2024-08-12] MEDS: CEFEPIME 2 GM in SODIUM CHLORIDE 0.9% 100 ML IV (01:32)
--- NOTE | 2024-08-12 01:39 | PC.NURSE ---
Pt awoke while hanging IV abx, pt stated You're a bunch of crazy people. Educated pt that I was hanging his abx, pt stated Yeah bullshit, you're all nuttier than a bunch of fruitcakes. You're crazy! Crazy! with increasing volume. Pt then covered face with blanket and resumed snoring. Finished attaching IV tubing and exited. Pt sleeping comfortably, abx infusing, pt belongings within reach, bed alarm on. Plan of care continues.
[2024-08-12] MEDS: MULTIVITAMIN 1 TABLET 1 TAB PO (09:28)
[2024-08-12] MEDS: PANTOPRAZOLE DR 40 MG TABLET PO (09:28)
[2024-08-12] MEDS: HEPARIN 5,000 UNIT/ML VIAL 5000 UNIT SUBCUT (09:28)
[2024-08-12] MEDS: ASCORBIC ACID 500 MG TABLET PO (09:28)
[2024-08-12] MEDS: DEXAMETHASONE 10 MG/ML VIAL 6 MG IV (09:29)
[2024-08-12] MEDS: SODIUM CHLORIDE 0.9% FLUSH 10 ML IV (09:43)
[2024-08-12] MEDS: CYANOCOBALAMIN (VITAMIN B-12) 500 MCG TABLET 3000 MCG PO (09:44)
[2024-08-12] MEDS: levoFLOXacin 250 MG TABLET 750 MG PO (09:44)
--- NOTE | 2024-08-12 12:20 | P.DS_ITS ---
History of Present Illness History of Present Illness Date Patient Seen: 08/12/24 Time Patient Seen: 09:30 Chief complaint: GLF Narrative: Per admitting provider, 88 years old male with history of hypertension, hyperlipidemia, GERD, CAD presented to the ER with ground-level fall and hypoxia. The patient is poor historian. He was hospitalized in July 14 for generalized weakness and was discharged to rehab center. Discharged 2 days ago from the rehab and was diagnosed with COVID couple days ago. Laboratory shows WBC 16, lactic acid 2.4, procalcitonin 0.27, BNP 882, troponin 0.05. EKG shows sinus tachycardia. CT of the chest shows no PE with focal confluent area of opacity appearing groundglass in the right lung most consistent with infection. Chest x-ray shows right lung suspicious for edema or pneumonia. CT of the head shows moderate chronic microvascular ischemic changes and parenchymal volume loss. In the ER he was given Zosyn 4.5 g IV, Ativan 0.5 mg IV and fluid bolus. Discharge Providers Provider Date of admission: 08/06/24 23:19 Discharge Date: 08/12/24 Primary care physician: CARMINA Perez Consults: 08/06/24 23:26 Consult to Discharge Planning Routine Comment: Consult to Physical Therapy Evaluate & Treat Comment: Physician Instructions: Evaluate and Treat 08/07/24 09:30 Consult to Dietitian, Adult Routine Comment: Reason For Exam: pt has not been eating at home Discharge provider: Giovanni Mendez DO Summary Hospital Course Discharge Diagnosis: 1. Sepsis secondary to pseudomonas acute cystitis and bacteremia, with acute metabolic encephalopathy, acute respiratory failure with hypoxia, JOAN, elevated bilirubin. improving. 2. Covid pneumonia, active. 3. CAD, stable. 4. Hypertension, stable. 5. GERD, stable. Hospital Course: This is an 88 year old male with PMH of CAD, HTN, GERD who was initially admitted with an acute encephalopathy, initially thought due to COVID 19 infection, however further workup revealed a pseudomonal acute cystitis with resulting bacteremia. He was treated with IV antibiotics, zosyn initially but changed to Pseudomonal coverage on 08/09 and then transitioned to cefepime the following day. Cultures show sensitivity to a fluoroquinolone, and he will discharge on oral Levofloxacin on discharge, every 48 hours based on his creatinine clearance calculation of 30 given labs on the day of discharge. He was mobilizing well with physical therapy, and recommended for discharge home. Time Spent with Patient Time spent: Greater than 30 minutes Exam Vital Signs (past 8 hours): - 08/12/24 08:00 Pulse Rate 75 Respiratory Rate 18 Blood Pressure 122/70 Pulse Oximetry 99 Oxygen Flow Rate 0 Oxygen Delivery Method Room Air Oxygen Flow Rate 0 Narrative Exam Narrative: NAD, alert and oriented. Fluent speech. Lungs are clear, normal rate and effort. Heart is regular, no murmur gallop or rub. Abdomen is soft, non distended. Extremities are free of edema. Objective Labs 08/10/24 04:10 08/10/24 04:10 [facility] Medical History Pacemaker CVA (cerebral vascular accident) Hyperlipidemia Social History household members: spouse Smoking Status: Never smoker alcohol intake: current Discharge Plan Discharge Plan Patient Disposition: Home Health Service Provider Discharge Comment: You were admitted to the hospital with confusion, due to sepsis, COVID, and a bacterial blood stream infection. Discharge orders & Medications Prescriptions: New levofloxacin 750 mg tablet 750 mg PO Q48H 12 Days Qty: 6 0RF Continued valsartan 40 mg tablet 40 mg PO DAILY pantoprazole 40 mg tablet,delayed release (DR/EC) 40 mg PO DAILY atorvastatin 10 mg Tablet 10 mg PO QPM ascorbic acid (vitamin C) [Vitamin C] 500 mg Tablet 500 mg PO DAILY Adults Multivitamin 18 mg iron-400 mcg-25 mcg Tablet 1 tab PO DAILY cyanocobalamin (vitamin B-12) 3,000 mcg Capsule 3,000 mcg PO DAILY magnesium citrate 100 mg Capsule 600 mg PO DAILY Rx Instructions: takes 1 tab of 600mg aspirin 81 mg Capsule 81 mg PO BEDTIME acetaminophen 325 mg Tablet 650 mg PO Q6H PRN (Reason: Fever/Mild Pain (1-3)) Qty: 30 0RF Follow up/Referrals: Kelle Ordonez ARNP [Primary Care Provider] - Diet/Activity/Treatments Diet: Diet as Tolerated and Regular Activity: As tolerated no restrictions. Visit Report/Discharge Packet Stand Alone Forms: Patient Portal/API, Stroke Signs & Symptoms Discharge Data Primary Care Provider: Kelle Ordonez Quality VTE Deep Vein Thrombosis/Pulmonary Embolism Present on Admission: No
--- NOTE | 2024-08-12 15:39 | PC.NURSE ---
Discharge Note Patient A&O, VSS, RA, no complaints of pain/discomfort. Patient agreeable to discharge plan. PIV discontinued. Patient able to dress self with assistance. Patient belongings packed with assistance. Patient taken down via wheelchair to POV.
--- NOTE | 2024-08-12 15:46 | CM.DPNOTE ---
DCP note GTA reviewed EMR per provider in morning rounds, PO abx and cleared to dc today. per nursing staff, ambulating with nursing, took shower with standby assist. GTA spoke with Avis at [facility], hx of referral with pt. CHARISSE Valentin sent referral information. Avis at [facility] able to accept. GTA completed f2f/orders, sent to Avis at [facility] with dc sum draft. GTA had lengthy conversation with pt's spouse, Jocelyn via phone ([phone]) reviewed DCP options/barriers to placement. Spouse reports being sick herself and fearing she won't be able to take care of pt. GTA convey his mobility status with nursing. GTA read verbatim the [facility] documentation and the option to appeal dc. Spouse said she does not want to appeal the dc and waived the right to 4 hours notice to appeal dc at this time. Spouse reports understanding that pt is medically stable to dc and does not qualify for acute care at this time. Spouse agreeable to taking pt home with [facility] support, a hand held urinal, and information for PP CGs. Spouse will be at at 1500, asked if someone could help him outside so she didn't have to go in. GTA updated RN, gave senior resources booklet, Replaced by [facility] brochure, and other PP CG resources. RN agreed to have someone bring pt down at 1500 and will include resources in DC paperwork. P: pt to dc today home with [facility] for RN/PT/OT/GTA/TURNING SANDER TENDER and family support. transport with spouse. CM team will continue to follow as needed CHERRI Rosas
--- NOTE | 2024-08-14 11:54 | CM.DPNOTE ---
Addendum entered by CHERRI Rosas 08/14/24 14:13: Mikaela called this HEADHUNTER back. asking for SNF placement. HEADHUNTER recommended calling PCP for SNF placement. Dtr Mikaela reported she plans to call 911 and have them take him to the ED again because she thinks something is new and has changed for him medically. SL Original Note: Post DC follow up HEADHUNTER received post dc call from dtr Mikaela. dtr states pt has fallen at home and upset pt did not dc to SNF. HEADHUNTER answered questions to best of ability. provided mult phone numbers for PP CG agencies as well as respite care facilities. Informed dtr that spouse denied right to appeal dc. encouraged dtr to have pt follow up with PCP or call 911 if there is a new emergent medical need. dtr expressed understanding. CHERRI Rosas
== END 2024-08-12 15:00 | disposition home health service (06) | DRG 871 ==
LOC: ED 22:39 → AC 23:20 → ICU 23:29
PROVIDERS: Internal Medicine; Admitting Provider Internal Medicine; Emergency Provider Emergency Medicine; PCP Internal Medicine; Referring Provider Emergency Medicine; Visit Provider Internal Medicine
DX: A41.52 Sepsis due to Pseudomonas (principal); G93.41 Metabolic encephalopathy; J96.01 Acute respiratory failure with hypoxia; U07.1 COVID-19; J12.82 Pneumonia due to coronavirus disease 2019; N17.9 Acute kidney failure, unspecified; N30.00 Acute cystitis without hematuria; R65.20 Severe sepsis without septic shock; R00.0 Tachycardia, unspecified; I25.10 Atherosclerotic heart disease of native coronary artery without angina pectoris; I10 Essential (primary) hypertension; W18.30XA Fall on same level, unspecified, initial encounter; K21.9 Gastro-esophageal reflux disease without esophagitis; R53.1 Weakness; E78.5 Hyperlipidemia, unspecified; Z86.73 Personal history of transient ischemic attack (TIA), and cerebral infarction without residual deficits; Z95.0 Presence of cardiac pacemaker
CPT/HCPCS: 0241U; 36415; 70450; 71045; 71275; 72125; 80048; 80053; 81001; 82550; 83605; 83735; 83880; 84145; 84484; 85007; 85025; 87040; 87077; 87086; 87154; 87186; 87797; 93005; 96365; 96375; 97162; 97530; 99285; J0360; J0692; J1100; J1630; J1644; J1940; J2060; J2543; Q9967

== ENCOUNTER 2024-08-15 09:38 | Inpatient (IN) | payer OTHER, SELFPAY ==
[2024-08-06 23:21] VITALS: BMI 26.2
[2024-08-15] VITALS (27 sets, daily range): BP systolic 94–138; BP diastolic 57–83; PULSE 54–98; RESP 11–21; TEMP 36–36.5; O2SAT 89–98; BMI 26.7; BMI 26.9
--- NOTE | 2024-08-15 10:26 | ED.FALL ---
HPI - Fall General Chief Complaint: Fall Stated Complaint: repeated falls Time Seen by Provider: 08/15/24 09:46 Source: patient, EMS, RN notes reviewed and old records reviewed Mode of arrival: EMS History of Present Illness HPI Narrative: 88-year-old male history of dyslipidemia GERD, hypertension presenting with a ground level fall. Patient was here on 08/06/2024 with similar was not admitted in July for 2 days for generalized weakness and discharged to [facility]. Unclear if he has not any dementia but somewhat confused can tell me he fell can not tell me how or why he fell. He denies any head injury but does have bruising on his back and abdomen which is green in coloration and appears little bit older. Also reported had a diagnosis of COVID in early August. Patient denies any other symptoms he states he hurts all over. Denies headache, denies neck pain, denies chest pain or shortness of breath. No nausea or vomiting. No GI or urinary symptoms. No numbness tingling or weakness. Does have some complaints of back pain. Patient does not appear to be on any anticoagulants according to his medication list. He does not know. Reported allergy to morphine per EMR. Related Data Home Medications Medication Instructions Recorded Confirmed atorvastatin 10 mg tablet 10 mg PO QPM 05/28/18 08/07/24 pantoprazole 40 mg tablet,delayed 40 mg PO DAILY 04/19/23 08/07/24 release valsartan 40 mg tablet 40 mg PO DAILY 04/19/23 08/07/24 ascorbic acid (vitamin C) 500 mg 500 mg PO DAILY 07/14/24 08/07/24 tablet (Vitamin C) aspirin 81 mg capsule 81 mg PO BEDTIME 07/14/24 08/07/24 cyanocobalamin (vitamin B-12) 3,000 mcg PO DAILY 07/14/24 08/07/24 3,000 mcg capsule magnesium citrate 100 mg capsule 600 mg PO DAILY 07/14/24 08/07/24 multivit with minerals-iron 18 1 tab PO DAILY 07/14/24 08/07/24 mg-folic ac 400 mcg-vit K 25 mcg tablet (Adults Multivitamin) Previous Rx's Medication Instructions Recorded acetaminophen 325 mg tablet 650 mg (2 x 325 mg) PO Q6H PRN 07/16/24 Fever/Mild Pain (1-3) #30 tabs levofloxacin 750 mg tablet 750 mg PO Q48H 12 days #6 tabs 08/12/24 Allergies Allergy/AdvReac Type Severity Reaction Status Date / Time morphine AdvReac Verified 08/15/24 10:02 Review of Systems Review of Systems ROS Unobtainable: All systems reviewed & are unremarkable except as noted in HPI and below Patient History Medical History Pacemaker CVA (cerebral vascular accident) Hyperlipidemia Social History household members: spouse Smoking Status: Never smoker alcohol intake: current Smoking Status: Never smoker alcohol intake frequency: holidays/special occasions only Exam Narrative Exam Narrative: GEN: Patient appears in mild distress. Patient's shirt smells like urine and it was wet. HEAD: No evidence of trauma, no raccoon/Clancy sign. NECK: Nontender, painless range of motion, trachea midline EYES: PERRLA, EOMI ENT: External inspection normal, trachea is midline, TM's are normal no hemotypanum, Nares are clear, no septal hematoma, no dental or oral injury, airway is normal and with normal occlusion, No bony tenderness RESP: Chest is nontender and has symmetric movement, no ecchymosis, breath sounds are normal no crackles, wheezes or rales CVS: Heart sounds are normal, no murmur noted, No JVD. ABG/GI: Nontender, soft, normal bowel sounds, no distention, no organomegaly, pelvic rock is negative NEURO: Oriented to self and location, neuro is grossly intact, sensation and motor is normal all 4 extremities moving, cranial nerves II through XII are intact, GCS is 14 PSYCH: Normal mood and affect SKIN: Intact, warm and dry, no crepitus and without decubitus, patient has some greenish ecchymosis of the right inguinal region, also has ecchymosis which in various stages of healing on his posterior lumbar region. Patient has what appears to be a skin tear on his right hanson and has bandages in the anterior hanson as well. BACK: No CVA tenderness, no vertebral tenderness, no step-off's, no crepitus EXT: Atraumatic, hips are nontender, no pedal edema, normal color and temperature, normal range of motion of extremities with normal tendon exam, 2+ pulses in all four extremities Initial Vital Signs Initial Vital Signs: Vital Signs Temperature 97.0 F L 08/15/24 09:48 Pulse Rate 63 08/15/24 09:48 Respiratory Rate 12 08/15/24 09:48 Blood Pressure 136/80 08/15/24 09:48 Pulse Oximetry 96 08/15/24 09:48 Oxygen Delivery Method Room Air 08/15/24 09:48 Course Orders Ordered: ED Orders 08/15/24 10:31 CT cervical spine wo con Stat CT head/brain wo con Stat CT lumbar spine wo con Stat Chest [XR chest 1V] Stat 08/15/24 10:33 XR pelvis 1-2V Stat EKG-12 Lead Stat 08/15/24 11:38 CBC Auto Diff [Complete Blood Count AUTO DIFF] Stat CMP [Comprehensive Metabolic Panel] Stat Lipase Stat Troponin & CK Cardiac Panel Stat 08/15/24 12:59 Urinalysis and Microscopic Stat 08/15/24 13:56 CT kidney ureter bladder (KUB) Stat Acetaminophen (Acetaminophen 325 Mg Tablet) 650 mg PO Q6H PRN PRN Reason: Fever/Mild Pain (1-3) Al Hydrox/Mg Hydrox/Simethicone (Mag Hydrox/Alum/Simeth 30 Ml Udc) 30 ml PO Q6HR PRN PRN Reason: Dyspepsia Atorvastatin Calcium (Atorvastatin 20 Mg Tablet) 10 mg PO BEDTIME YARY Enoxaparin Sodium (Enoxaparin 40 Mg/0.4 Ml Syringe) 40 mg SUBCUT DAILY YARY Levofloxacin (Levofloxacin 250 Mg Tablet) 750 mg PO 0700 YARY Magnesium Hydroxide (Magnesium Hydroxide 30 Ml Udc) 30 ml PO DAILY PRN PRN Reason: Constipation Naloxone HCl (Naloxone 0.4 Mg/Ml Vial) 0.2 mg IV Q2MIN PRN PRN Reason: Opiate Reversal Pantoprazole Sodium (Pantoprazole Dr 40 Mg Tablet) 40 mg PO DAILY YARY Valsartan (Valsartan 80 Mg Tablet) 40 mg PO DAILY YARY Discontinued Medications Acetaminophen (Acetaminophen 325 Mg Tablet) 975 mg PO NOW ONE Stop: 08/15/24 10:34 Last Admin: 08/15/24 12:47 Dose: 975 mg Documented By: RLS Levofloxacin (Levaquin) 750 mg in 150 mls @ 100 mls/hr IV NOW ONE Stop: 08/15/24 15:24 Last Infusion: 08/15/24 17:00 Dose: Infused Documented By: Admin: 08/15/24 14:58 Dose: 100 mls/hr Documented By: BHAVANI Vital Signs Vital signs: Vital Signs - 8 hr 08/15/24 11:30 08/15/24 12:00 08/15/24 12:30 Pulse Rate 64 68 68 Respiratory Rate 18 Blood Pressure Pulse Oximetry 95 96 Oxygen Delivery Method 08/15/24 12:59 08/15/24 12:59 08/15/24 13:00 Pulse Rate 82 80 Respiratory Rate Blood Pressure 125/81 Pulse Oximetry 95 95 Oxygen Delivery Method 08/15/24 13:00 08/15/24 13:30 08/15/24 13:30 Pulse Rate 69 Respiratory Rate Blood Pressure 121/77 130/70 Pulse Oximetry 94 Oxygen Delivery Method Room Air 08/15/24 14:09 08/15/24 14:09 08/15/24 14:30 Pulse Rate 74 Respiratory Rate Blood Pressure 114/69 115/65 Pulse Oximetry 94 Oxygen Delivery Method 08/15/24 14:30 08/15/24 15:00 08/15/24 15:00 Pulse Rate 64 77 Respiratory Rate Blood Pressure 116/70 Pulse Oximetry 95 96 Oxygen Delivery Method Room Air 08/15/24 15:30 08/15/24 15:30 08/15/24 16:12 Pulse Rate 68 74 Respiratory Rate Blood Pressure 122/72 Pulse Oximetry Oxygen Delivery Method 08/15/24 16:12 08/15/24 16:30 08/15/24 16:30 Pulse Rate 77 Respiratory Rate Blood Pressure 121/59 L 120/63 Pulse Oximetry Oxygen Delivery Method 08/15/24 16:36 Pulse Rate 79 Respiratory Rate Blood Pressure Pulse Oximetry Oxygen Delivery Method MDM - Fall Lab Data 08/15/24 11:38 08/15/24 11:38 Labs: Lab Results 08/15/24 08/15/24 Range/Units 11:38 12:59 WBC 11.4 H (4.5-11.0) X10^3/uL RBC 5.13 (4.5-5.9) X10^6/uL Hgb 14.4 (13.5-17.5) g/dL Hct 42.4 (41-53) % MCV 82.7 (80-100) fL MCH 28.1 (26-34) PG MCHC 34.0 (30-36) % RDW 14.8 (11.6-14.8) % Plt Count 173 (150-400) X10^3/uL Neut % (Auto) 60.4 (50-75) % Lymph % (Auto) 7.6 L (25-40) % Gaines % (Auto) 30.4 H (3-14) % Eos % (Auto) 1.2 L (2-4) % Baso % (Auto) 0.4 (0-2) % Neut # (Auto) 6900 (5498-5956) /uL Lymph # (Auto) 900 L (9749-4444) /uL Gaines # (Auto) 3500 H (0-900) /uL Eos # (Auto) 100 (0-450) /uL Baso # (Auto) 0 (0-100) /uL Sodium 137 (137-145) mmol/L Potassium 3.9 (3.4-5.1) mmol/L Chloride 108 H (98-107) mmol/L Carbon Dioxide 21 L (22-32) mmol/L BUN 16 (9-20) mg/dL Creatinine 0.93 (0.66-1.25) mg/dL Estimated GFR > 60 (>60) mL/min BUN/Creatinine Ratio 17.2 (6-22) Glucose 109 (80-110) mg/dL Calcium 8.7 (8.4-10.2) mg/dL Total Bilirubin 2.7 H (0.2-1.3) mg/dL AST 34 (17-59) IU/L ALT 53 H (<50) IU/L Alkaline Phosphatase 94 (38-126) U/L Total Creatine Kinase < 20 L (55-170) U/L Troponin I 0.016 (0.01-0.034) ng/mL Total Protein 6.6 (6.3-8.2) g/dL Albumin 3.4 L (3.5-5.0) g/dL Globulin 3.2 (1.7-4.1) g/dL Albumin/Globulin Ratio 1.1 (1.0-2.8) Lipase 105 (23-300) U/L Urine Color Yellow Urine Appearance Clear Urine pH 6.0 (4.5-8.0) Ur Specific [place] 1.025 (1.000-1.035) Urine Protein Trace H (Negative) Urine Glucose (UA) Negative (Negative) g/dL Urine Ketones Negative (NEGATIVE) Urine Occult Blood Negative (Negative) Urine Nitrate Negative (Negative) Urine Bilirubin Negative (NEGATIVE) Urine Urobilinogen 0.2 (0.2) E.U./dL Ur Leukocyte Esterase Trace H (NEGATIVE) Urine RBC 1-5/hpf D (0-5/HPF) Urine WBC 1-5/hpf (0-5/HPF) Ur Squamous Epith Cells 1-5 /hpf (0-5/HPF) Urine Bacteria Few (2-10) H (None) Ur Culture Indicated? Cult not indicated Vol Urine Centrifuged 10ml (spun) ECG Data Attestation: I personally reviewed and interpreted this ECG as follows: Interpretation: Sinus rhythm with sinus arrhythmia first-degree AV block rate 84 AL 242 QRS 88 QTC of 453 nonspecific change. MDM Narrative Medical decision making narrative: Labs show white count 11.4 hemoglobin of 14 platelets of 173 predominance of monocytes. INR is 1.1 CO2 is 21 chloride 108 electrolytes are otherwise appropriate creatinine 0.93 bilirubin is 2.7 patient has been somewhat elevated for the past month. ALT is 53 alk-phos is normal AST is 34 total CK is less than 20 lipase is 105. Troponin Head CT shows no acute change chronic appearing mild sinusitis. CT cervical spine shows no trauma mid and lower cervical moderately severe to severe degenerative disc disease. Lumbar CT shows no acute trauma large obstructive mid left ureteral stone causing severe hydronephrosis. Patient had prior CT scan noted on CT scanning from 07/15/2024. Patient had hydro and hydroureter associated with a mid ureteral dense calcification seen at that time as well. Pelvic x-ray no acute change. Large right ureteral stone seen on x-ray imaging. Chest x-ray stable right-sided pneumonia. CT KUB shows right hydro proximal hydroureter secondary to stone. Reviewed patient's chart was seen here for fall in the kept for observation was referred to Urology that time did not have any signs of infection. Patient had repeat hospitalization on 08/12/2024 found to have Pseudomonas cystitis and bacteremia on cultures. Acute metabolic encephalopathy COVID pneumonia was treated with Zosyn but transitioned over to cefepime and then discharged on Levaquin. Consult with urology, Dr. Arshad, he reviewed patient's imaging ask if we can add a CT KUB as there was a stone on the other side that has not noted in the read. Reviewed prior cultures we will cover with Levaquin NPO. Patient may not be able to consent for procedure for himself so we will reach out to his or make sure to have good contact for consent. 1400 updated patient he does not recall any of this suspect he has some dementia at baseline we will attempt to reach out to his he states he was . He states pain is fine currently. We will attempt ambulation trial and if failing plan for observation under [facility]. Spoke with Dr. Ordonez, patient is not able to discharge home can observe under him Dr. Huntley is on this evening after 5pm he will give him a heads up. 1614: Dr. Arshad in department. Consented patient over the phone verbally with his who is his primary decision maker and patient was quite demented and not able to consent. Was witnessed for this. He did update us there was an issue with the machine we will be unable to go to the OR today plan for tomorrow. 1648: Re-contact Dr. Ordonez there was an issue with the machine they will not be able to use it until tomorrow for lithotripsy asked if we can keep him overnight for observation continuing antibiotics and Dr. Arshad will take to OR tomorrow. Patient is started on Levaquin based on recent cultures. Dr. Ordonez kindly accepts. Dr. Ordonez in department and saw patient. Discharge Plan Departure Patient Disposition: Admitted as Observation Clinical Impression: Fall, Noninfected skin tear of leg, Bruise, trunk, Kidney stone on left side, UTI (urinary tract infection) Admit Date/Time: 08/15/24 16:58 Admit Provider: Elijah Ordonez
--- NOTE | 2024-08-15 10:31 | DI.CT.S_ITS ---
PROCEDURE: CT HEAD/BRAIN WO CON INDICATIONS: fall, unclear if mechanical, ? head injury, confused, back p TECHNIQUE: Noncontrast 4.5 mm thick angled axial sections acquired from the foramen magnum to the vertex, with coronal and sagittal reformats. For radiation dose reduction, the following was used: automated exposure control, adjustment of mA and/or kV according to patient size. COMPARISON: [facility], CT, CT HEAD/BRAIN WO CON, 08/06/2024, 20:23. FINDINGS: Image quality: Diagnostic. CSF spaces: Basal cisterns are patent. No extra-axial fluid collections. The ventricles are symmetric in size and shape. Brain: No intracranial bleeds or masses. There is cerebral volume loss for age, with resultant ventricular and sulcal prominence. There are periventricular and deep white matter chronic small vessel ischemic changes. There is intracranial internal carotid artery atherosclerosis. Skull and face: Calvarium and visualized facial bones appear intact, without suspicious lesions. Sinuses: Mucosal thickening and fluid in left maxillary sinus is seen. Mucosal thickening in bilateral ethmoid sinus is also. Bilateral mastoid air cells are well aerated. IMPRESSION: 1. No acute intracranial pathology. 2. Chronic appearing mild sinusitis as above. Dictated by: Luigi Dumont M.D. on 08/15/2024 at 11:01 Approved by: Luigi Dumont M.D. on 08/15/2024 at 11:02
--- NOTE | 2024-08-15 10:31 | DI.CT.S_ITS ---
PROCEDURE: CT CERVICAL SPINE WO CON INDICATIONS: fall, unclear if mechanical, ? head injury, confused, back p TECHNIQUE: Noncontrast 3 mm thick sections acquired from the skull base to the T4 level. Sagittal and coronal reformats were then constructed. For radiation dose reduction, the following was used: automated exposure control, adjustment of mA and/or kV according to patient size. COMPARISON: [facility], CT, CT CERVICAL SPINE WO CON, 08/06/2024, 20:23. [facility], CT, CT CERVICAL SPINE WO CON, 07/14/2024, 13:54. FINDINGS: Image quality: Excellent. Bones: No fractures or dislocations. Visualized superior ribs are intact. Mid and lower moderately severe to severe degenerative disc disease with likelihood of spinal and foraminal stenosis Soft tissues: Prevertebral soft tissues are normal in thickness. No paravertebral hematomas. No apical pneumothoraces. IMPRESSION: No trauma found, mid and lower cervical moderately severe to severe degenerative disc disease. Dictated by: Rachid Ramirez M.D. on 08/15/2024 at 11:21 Approved by: Rachid Ramirez M.D. on 08/15/2024 at 11:22
--- NOTE | 2024-08-15 10:31 | DI.RAD.S_ITS ---
PROCEDURE: XR CHEST 1V INDICATIONS: fall, unclear if mechanical, ? head injury, confused, back p TECHNIQUE: One view of the chest was acquired. COMPARISON: [facility], CR, XR CHEST 1V, 08/07/2024, 17:33. [facility], CR, XR CHEST 1V, 08/06/2024, 20:16. FINDINGS: Surgical changes and devices: Pacemaker and dual chamber leads stable over time.. Lungs and pleura: Lungs are abnormal with persistence of a right-sided pneumonia pattern accentuated by light film technique and reduced inspiratory volume. No pleural effusions or pneumothorax. Mediastinum: Mediastinal contours appear normal. Heart size is normal. Bones and chest wall: No suspicious bony lesions. Overlying soft tissues appear unremarkable. IMPRESSION: Stable right-sided pneumonia pattern considering reduced inspiratory volume and light film technique. Dictated by: Rachid Ramirez M.D. on 08/15/2024 at 11:15 Approved by: Rachid Ramirez M.D. on 08/15/2024 at 11:16
--- NOTE | 2024-08-15 10:31 | DI.CT.S_ITS ---
PROCEDURE: CT LUMBAR SPINE WO CON INDICATIONS: fall, unclear if mechanical, ? head injury, confused, back p TECHNIQUE: Noncontrast 3 mm thick sections acquired from the T12 level to the sacrum. Sagittal and coronal reformats were constructed. For radiation dose reduction, the following was used: automated exposure control. COMPARISON: [facility], CT, CT LUMBAR SPINE W CON, 07/15/2024, 15:46. FINDINGS: Image quality: Excellent. Bones: There is normal bony alignment. No acute vertebral body compression fractures. No suspicious lytic or blastic bony lesions. No pars defects. As was seen during similar CT scanning 07/15/24 there is moderate to moderately severe degenerative disc disease, facet osteoarthritis, and mild anterior wedging of the vertebral bodies anteriorly from T12 through L3, without evidence of acute compression fracture or traumatic subluxation. Soft tissues: No retroperitoneal masses or hematomas and the hydronephrosis and hydroureter associated with a mid ureteral dense calcification is again seen as was the case and reported from CT scanning 07/15/24. Visualized aorta is normal in caliber. IMPRESSION: No acute trauma. Urology consultation is recommended if this has not yet been obtained. There is a large obstructive mid left ureteral stone causing severe hydronephrosis and proximal hydroureter. Infection above this calculus could progress to generalized sepsis if present. Dictated by: Rachid Ramirez M.D. on 08/15/2024 at 11:22 Approved by: Rachid Ramirez M.D. on 08/15/2024 at 11:28
--- NOTE | 2024-08-15 10:33 | DI.RAD.S_ITS ---
PROCEDURE: XR PELVIS 1-2V INDICATIONS: fall TECHNIQUE: Single view(s) of the pelvis acquired. COMPARISON: [facility], CT, CT LUMBAR SPINE W CON, 07/15/2024, 15:46. FINDINGS: Bones: No fractures or dislocations. No suspicious bony lesions. Soft tissues: Visualized bowel gas pattern is normal. Again noted is a right-sided dense longitudinally oriented calcification which was seen by CT scanning 07/15/24 to be within the right ureter and producing severe hydronephrosis. IMPRESSION: No acute trauma found. Large right ureteral stone identified also 07/15/[address] scanning remains obstructive and does not appear to have been addressed by ureteral stent placement. Please correlate clinically. Dictated by: Rachid Ramirez M.D. on 08/15/2024 at 11:17 Approved by: Rachid Ramirez M.D. on 08/15/2024 at 11:20
--- NOTE | 2024-08-15 11:38 | EKG_ITS ---
[address] [address] [place] [address] Test Date: 2024-08-15 Pat Name: Jayy Beckman Department: [facility] Room: Gender: Male [employer] Operator: STEPHANI : 1935 Requested By: Order Number: [id number] Reading MD: Jarek Jimenez MD Measurements Intervals [place] Rate: 84 P: 69 ID: [id number] QRS: -30 QRSD: 88 T: -69 QT: 384 QTc: 453 Interpretive Statements Sinus rhythm with sinus arrhythmia with 1st degree AV block with occasional premature ventricular complexes Left axis deviation Nonspecific T wave abnormality Electronically Signed On 08-16-2024 6:50:34 PST by Jarek Jimenez MD
[2024-08-15 12:06] LABS: Add Manual Diff / Slide Review NO; Basophils Absolute Auto 0 /uL (0-100); Basophils Percent Auto 0.4 % (0-2); Eosinophils Absolute Auto 100 /uL (0-450); Eosinophils Percent Auto 1.2 % (2-4); Hematocrit 42.4 % (41-53); Hemoglobin 14.4 g/dL (13.5-17.5); Lymphocytes Absolute Auto 900 /uL (1100-4500); Lymphocytes Percent Auto 7.6 % (25-40); Mean Corpuscular Hemoglobin 28.1 PG (26-34); Mean Corpuscular Volume 82.7 fL (80-100); Monocytes Absolute Auto 3500 /uL (0-900); Monocytes Percent Auto 30.4 % (3-14); Neutrophils Absolute Auto 6900 /uL (1500-7000); Neutrophils Percent Auto 60.4 % (50-75); Platelet Count 173 X10^3/uL (150-400); Red Blood Cell Count 5.13 X10^6/uL (4.5-5.9); Red Cell Distribution Width 14.8 % (11.6-14.8); White Blood Cell Count 11.4 X10^3/uL (4.5-11.0)
[2024-08-15 12:23] LABS: Creatine Kinase < 20 U/L (55-170)
[2024-08-15 12:24] LABS: Alanine Aminotransferase 53 IU/L (<50); Albumin 3.4 g/dL (3.5-5.0); Albumin Globulin Ratio 1.1 (1.0-2.8); Alkaline Phosphatase 94 U/L (38-126); Aspartate Aminotransferase 34 IU/L (17-59); BUN Creatinine Ratio 17.2 (6-22); Bilirubin Total 2.7 mg/dL (0.2-1.3); Blood Urea Nitrogen 16 mg/dL (9-20); Calcium 8.7 mg/dL (8.4-10.2); Carbon Dioxide 21 mmol/L (22-32); Chloride 108 mmol/L (98-107); Estimated Glomerular Filt Rate > 60 mL/min (>60); Globulin 3.2 g/dL (1.7-4.1); Glucose 109 mg/dL (80-110); HEMOLYSIS < 15 (0-50); Lipase 105 U/L (23-300); Potassium 3.9 mmol/L (3.4-5.1); Sodium 137 mmol/L (137-145); Total Protein 6.6 g/dL (6.3-8.2)
[2024-08-15 12:35] LABS: Troponin I 0.016 ng/mL (0.01-0.034)
[2024-08-15] MEDS: ACETAMINOPHEN 325 MG TABLET 975 MG PO (12:47)
[2024-08-15 13:22] LABS: Appearance Urine UA CLEAR; Bilirubin Urine UA NEGATIVE (NEGATIVE); Color Urine UA YELLOW; Glucose Urine UA NEGATIVE (Negative); Ketones Urine UA NEGATIVE (NEGATIVE); Leukocyte Esterase Urine UA TRACE (NEGATIVE); Nitrite Urine UA NEGATIVE (Negative); Occult Blood Urine UA NEGATIVE (Negative); Protein Urine UA TRACE (Negative); Specific Gravity Urine UA 1.025 (1.000-1.035); Urobilinogen Urine UA 0.2 E.U./dL (0.2)
[2024-08-15 13:34] LABS: Bacteria Urine Few (2-10); Culture Indicated Urine Cult Not Indicated; RBC Urine 1-5/HPF (0-5/HPF); Squamous Epithelial Cell Urine 1-5 /HPF (0-5/HPF); Urine Volume 10mL (spun); WBC Urine 1-5/HPF (0-5/HPF)
--- NOTE | 2024-08-15 13:56 | DI.CT.S_ITS ---
PROCEDURE: CT KIDNEY URETER BLADDER (KUB) INDICATIONS: Right sided calculi seen on CT L-spine TECHNIQUE: Axial sections were acquired from the lung bases to the pubic symphysis. Coronal and sagittal reformats were performed. For radiation dose reduction, the following was used: automated exposure control, adjustment of mA and/or kV according to patient size. COMPARISON: None. FINDINGS: Image quality: Diagnostic. Lower Chest: Spoke the mild patchy right lower lobe opacities. URINARY: Right Kidney: Moderate hydronephrosis. Nonobstructing calculi are present the largest measuring a mildly 4 mm. 10.2 cm simple cyst. Right Ureter: Proximal hydroureter are within the 1.1 cm calcification Hounsfield units 1329. There Left Kidney: Multiple nonobstructive renal with the largest measuring 1 cm with Hounsfield units measuring 1162. Left Ureter: No hydroureter. Bladder: Normal wall thickness. No stones. ABDOMEN: Liver: No contour-deforming solid mass. Gallbladder: No radiopaque gallstones or wall thickening. Biliary ducts: No biliary dilation. Pancreas: No ductal dilation. Spleen: Size is within normal limits. Adrenal Glands: No adrenal nodules. Stomach and Bowel: Normal colonic caliber, without significant wall thickening. Moderate colonic stool. Peritoneum: No abnormal intraperitoneal fluid. No free air. Ventral Wall: No hernia. Abdominal Nodes: No enlarged retroperitoneal or mesenteric lymph nodes. Vessels: Aorta and inferior vena cava are normal in size. PELVIS: Pelvic Organs: Unremarkable. Pelvic Nodes: Unremarkable. Miscellaneous: No inguinal hernias are seen. Bones: Unremarkable. IMPRESSION: Right hydronephrosis and proximal hydroureter secondary to stone. Dictated by: Celina Mulligan M.D. on 08/15/2024 at 14:45 Approved by: Celina Mulligan M.D. on 08/15/2024 at 14:56
[2024-08-15] MEDS: levoFLOXacin 750 MG/150 ML PIGGYBACK 100 MG IV (14:58)
--- NOTE | 2024-08-15 16:52 | PM.CN.IH.1 ---
History of Present Illness Consult details Date Patient Seen: 08/15/24 Time Patient Seen: 16:53 Chief complaint: repeated falls Reason for consult: Large right obstructing proximal ureterolith Narrative: 88 y/o M brought in for evaluation of repeated falls by EMS. He is somewhat of a poor historian and is unable to answer all of my questions clearly, therefore, most of the history was obtained via the assistance of his (this was performed over the phone as she is recovering from COVID at home). She states that in mid Jul 2024 he began falling and having low back pain. He was evaluated in the ER for this issue and discharged home after admission for a few days following his imaging to include a lumbar and cervical spine CT were negative for any acute fractures (they did demonstrate a large right ureteral stone with resultant upstream severe hydroureteronephrosis). Unfortunately, he returned to ER in early Aug 2024 for evaluation of a ground level fall and worsening hypoxia. He was ultimately admitted for a few days and treated for pansensitive Pseudomonal Aeruginosa UCx and BCx's. He was discharged home on Levaquin PO on 12 Aug 2024 and returns today secondary to repeated falls. His evaluation today was notable for a WBC of 11.4, sCr of 0.93 and an unremarkable UA. His repeat lumbar spine CT demonstrated the aforementioned large stone and Urology was consulted. His subsequent CT KUB was notable for a 2.1cm right proximal ureterolith with resultant upstream severe hydroureteronephrosis. Of note, he also has several other small nephroliths within his right renal collecting system and a 1cm left lower pole calculus. Meds Home Medications and Allergies Home Medications Medication Instructions Recorded Confirmed Type atorvastatin 10 mg tablet 10 mg PO QPM 05/28/18 08/07/24 History pantoprazole 40 mg tablet,delayed 40 mg PO DAILY 04/19/23 08/07/24 History release valsartan 40 mg tablet 40 mg PO DAILY 04/19/23 08/07/24 History ascorbic acid (vitamin C) 500 mg 500 mg PO DAILY 07/14/24 08/07/24 History tablet (Vitamin C) aspirin 81 mg capsule 81 mg PO BEDTIME 07/14/24 08/07/24 History cyanocobalamin (vitamin B-12) 3,000 mcg PO DAILY 07/14/24 08/07/24 History 3,000 mcg capsule magnesium citrate 100 mg capsule 600 mg PO DAILY 07/14/24 08/07/24 History multivit with minerals-iron 18 1 tab PO DAILY 07/14/24 08/07/24 History mg-folic ac 400 mcg-vit K 25 mcg tablet (Adults Multivitamin) acetaminophen 325 mg tablet 650 mg (2 x 325 mg) PO Q6H PRN 07/16/24 08/07/24 Rx Fever/Mild Pain (1-3) #30 tabs levofloxacin 750 mg tablet 750 mg PO Q48H 12 days #6 tabs 08/12/24 Rx Allergies Allergy/AdvReac Type Severity Reaction Status Date / Time morphine AdvReac Verified 08/15/24 10:02 Review of Systems Review of Systems Narrative: Unable to obtain secondary to patient confusion, possible dementia. Exam Vital Signs (past 8 hours): - 08/15/24 09:48 08/15/24 09:54 08/15/24 09:57 Temperature 97.0 F L Pulse Rate 63 Respiratory Rate 12 Blood Pressure 136/80 136/80 Pulse Oximetry 96 95 Oxygen Delivery Method Room Air 08/15/24 10:00 08/15/24 10:00 08/15/24 10:30 Temperature Pulse Rate 54 L Respiratory Rate 15 Blood Pressure 137/65 Pulse Oximetry 95 Oxygen Delivery Method Room Air Room Air 08/15/24 10:30 08/15/24 11:30 08/15/24 12:00 Temperature Pulse Rate 64 68 Respiratory Rate 18 Blood Pressure 114/66 Pulse Oximetry 95 Oxygen Delivery Method 08/15/24 12:30 08/15/24 12:59 08/15/24 12:59 Temperature Pulse Rate 68 82 Respiratory Rate Blood Pressure 125/81 Pulse Oximetry 96 95 Oxygen Delivery Method 08/15/24 13:00 08/15/24 13:00 08/15/24 13:30 Temperature Pulse Rate 80 69 Respiratory Rate Blood Pressure 121/77 Pulse Oximetry 95 94 Oxygen Delivery Method Room Air 08/15/24 13:30 08/15/24 14:09 08/15/24 14:09 Temperature Pulse Rate 74 Respiratory Rate Blood Pressure 130/70 114/69 Pulse Oximetry 94 Oxygen Delivery Method 08/15/24 14:30 08/15/24 14:30 08/15/24 15:00 Temperature Pulse Rate 64 77 Respiratory Rate Blood Pressure 115/65 Pulse Oximetry 95 96 Oxygen Delivery Method Room Air 08/15/24 15:00 Temperature Pulse Rate Respiratory Rate Blood Pressure 116/70 Pulse Oximetry Oxygen Delivery Method Oxygen Delivery Method Room Air Narrative Exam Narrative: GEN: Alert and oriented X3. No acute distress. Well-nourished. EYES: PERRLA, EOMI. HENT: Moist mucus membranes, no scleral icterus, normal neck ROM. RESP: Unlabored breathing, equal rise and fall of chest bilaterally, no cyanosis appreciated. CV: No peripheral edema, unremarkable heart rate. ABD: Soft, non-tender, non-distended, no palpable masses. EXT: No edema, clubbing or cyanosis. SKIN: No rashes or lesions. NEURO: No focal neurologic deficits, CN II-XII grossly intact. PSYCH: Cooperative, appropriate mood and affect. Objective Labs 08/15/24 11:38 08/15/24 11:38 Labs: Laboratory Results - last 24 hr 08/15/24 08/15/24 11:38 12:59 WBC 11.4 H RBC 5.13 Hgb 14.4 Hct 42.4 MCV 82.7 MCH 28.1 MCHC 34.0 RDW 14.8 Plt Count 173 Neut % (Auto) 60.4 Lymph % (Auto) 7.6 L [place] % (Auto) 30.4 H Eos % (Auto) 1.2 L Baso % (Auto) 0.4 Neut # (Auto) 6900 Lymph # (Auto) 900 L [place] # (Auto) 3500 H Eos # (Auto) 100 Baso # (Auto) 0 Sodium 137 Potassium 3.9 Chloride 108 H Carbon Dioxide 21 L BUN 16 Creatinine 0.93 Estimated GFR > 60 BUN/Creatinine Ratio 17.2 Glucose 109 Calcium 8.7 Total Bilirubin 2.7 H AST 34 ALT 53 H Alkaline Phosphatase 94 Total Creatine Kinase < 20 L Troponin I 0.016 Total Protein 6.6 Albumin 3.4 L Globulin 3.2 Albumin/Globulin Ratio 1.1 Lipase 105 Urine Color Yellow Urine Appearance Clear Urine pH 6.0 Ur Specific [place] 1.025 Urine Protein Trace H Urine Glucose (UA) Negative Urine Ketones Negative Urine Occult Blood Negative Urine Nitrate Negative Urine Bilirubin Negative Urine Urobilinogen 0.2 Ur Leukocyte Esterase Trace H Urine RBC 1-5/hpf D Urine WBC 1-5/hpf Ur Squamous Epith Cells 1-5 /hpf Urine Bacteria Few (2-10) H Ur Culture Indicated? Cult not indicated Vol Urine Centrifuged 10ml (spun) ON LICENSE OF [facility] Medical History Pacemaker CVA (cerebral vascular accident) Hyperlipidemia Social History household members: spouse Tobacco & Substance Use Smoking Status: Never smoker alcohol intake: current Assessment & Plan Assessment and plan (1) Right ureteral calculus: Status: Acute Plan: 88 y/o M who returns to the ER by EMS for evaluation of repeated falls. His evaluation today was notable for a WBC of 11.4, sCr of 0.83, an unremarkable UA and a CT KUB that was notable for a 2.1cm right proximal ureterolith with resultant upstream severe hydroureteronephrosis. Of note, he also has several other small nephroliths within his right renal collecting system and a 1cm left lower pole calculus. Discussed that this is likely the etiology of his aforementioned pansensitive Pseudomonas Aeruginosa UCx and BCx's from earlier this month. Discussed treatment options to include continued medical expulsion therapy (not recommended given prior history of bacteremia and very large stone) vs cystoscopy, with right ureteral stent placement. Discussed risks of the procedure to include pain, bleeding, infection, injury to urethra/bladder/ureter, inability to access the ureter requiring discussion with Interventional Radiology regarding a possible ureteral stent placement in an antegrade fashion vs a possible nephroureteral stent and/or percutaneous nephrostomy tube, urinary tract infection, need for emergent open repair of bladder and/or ureter. Informed consent was obtained over the phone via two physicians, myself and Dr. Laurita Luevano, and his gave consent to move forward with the aforementioned procedure. Time-Based Coding :: [TOTAL MINUTES] spent with patient and on the chart (including review of chart, obtaining history, exam, reviewing outside data, placing orders, documenting exam and treatment plan, and counseling patient) on [DATE]. PROFEE Charge Codes Inpatient or Observation consultation: 75917
--- NOTE | 2024-08-15 17:53 | P.HP_ITS ---
History of Present Illness History of Present Illness Date Patient Seen: 08/15/24 Time Patient Seen: 17:53 Date of Onset of Symptoms: 08/12/24 Chief complaint: repeated falls Narrative: Patient is a 88-year-old male usually followed by Jorge GREWAL who was new to me with history of recent COVID and sepsis discharged on Monday of this week. Who has a history of weakness. Apparently had spent 21 days in [facility] in [place] contracted COVID and then came here. Apparently he was admitted 2 days prior to his time at [facility] for weakness. Patient has a history of kidney stones. Which has been present for some time. Right side. Apparently he really has not recovered since he was discharged from the hospital. He has been weak and not doing well. has felt like he was not well. Did not seem like he was very strong when he came home from the hospital. Patient had 1 person assist while he was in the hospital and apparently did not do well. He has had no fevers no chills no nausea no vomiting no diarrhea. He is incontinent of urine and has been since he came from the skilled nursing. No other significant changes or complaints. Apparently mental status has been down since he contracted COVID according to the . There was no diagnosis of mental status changes in the chart. No other changes. [facility] Medical History Pacemaker CVA (cerebral vascular accident) Hyperlipidemia Social History household members: spouse Smoking Status: Never smoker alcohol intake: current Meds Home Medications and Allergies Home Medications Medication Instructions Recorded Confirmed Type atorvastatin 10 mg tablet 10 mg PO QPM 05/28/18 08/07/24 History pantoprazole 40 mg tablet,delayed 40 mg PO DAILY 04/19/23 08/07/24 History release valsartan 40 mg tablet 40 mg PO DAILY 04/19/23 08/07/24 History ascorbic acid (vitamin C) 500 mg 500 mg PO DAILY 07/14/24 08/07/24 History tablet (Vitamin C) aspirin 81 mg capsule 81 mg PO BEDTIME 07/14/24 08/07/24 History cyanocobalamin (vitamin B-12) 3,000 mcg PO DAILY 07/14/24 08/07/24 History 3,000 mcg capsule magnesium citrate 100 mg capsule 600 mg PO DAILY 07/14/24 08/07/24 History multivit with minerals-iron 18 1 tab PO DAILY 07/14/24 08/07/24 History mg-folic ac 400 mcg-vit K 25 mcg tablet (Adults Multivitamin) acetaminophen 325 mg tablet 650 mg (2 x 325 mg) PO Q6H PRN 07/16/24 08/07/24 Rx Fever/Mild Pain (1-3) #30 tabs levofloxacin 750 mg tablet 750 mg PO Q48H 12 days #6 tabs 08/12/24 Rx Allergies Allergy/AdvReac Type Severity Reaction Status Date / Time morphine AdvReac Verified 08/15/24 10:02 Review of Systems Review of Systems Narrative: All negative except above Exam Vital Signs (past 8 hours): - 08/15/24 09:54 08/15/24 09:57 08/15/24 10:00 Pulse Rate Respiratory Rate Blood Pressure 136/80 137/65 Pulse Oximetry 95 Oxygen Delivery Method 08/15/24 10:00 08/15/24 10:30 08/15/24 10:30 Pulse Rate 54 L Respiratory Rate 15 Blood Pressure 114/66 Pulse Oximetry 95 Oxygen Delivery Method Room Air Room Air 08/15/24 11:30 08/15/24 12:00 08/15/24 12:30 Pulse Rate 64 68 68 Respiratory Rate 18 Blood Pressure Pulse Oximetry 95 96 Oxygen Delivery Method 08/15/24 12:59 08/15/24 12:59 08/15/24 13:00 Pulse Rate 82 80 Respiratory Rate Blood Pressure 125/81 Pulse Oximetry 95 95 Oxygen Delivery Method 08/15/24 13:00 08/15/24 13:30 08/15/24 13:30 Pulse Rate 69 Respiratory Rate Blood Pressure 121/77 130/70 Pulse Oximetry 94 Oxygen Delivery Method Room Air 08/15/24 14:09 08/15/24 14:09 08/15/24 14:30 Pulse Rate 74 Respiratory Rate Blood Pressure 114/69 115/65 Pulse Oximetry 94 Oxygen Delivery Method 08/15/24 14:30 08/15/24 15:00 08/15/24 15:00 Pulse Rate 64 77 Respiratory Rate Blood Pressure 116/70 Pulse Oximetry 95 96 Oxygen Delivery Method Room Air 08/15/24 15:30 08/15/24 15:30 08/15/24 16:12 Pulse Rate 68 74 Respiratory Rate Blood Pressure 122/72 Pulse Oximetry Oxygen Delivery Method 08/15/24 16:12 08/15/24 16:30 08/15/24 16:30 Pulse Rate 77 Respiratory Rate Blood Pressure 121/59 L 120/63 Pulse Oximetry Oxygen Delivery Method 08/15/24 16:36 08/15/24 17:01 08/15/24 17:31 Pulse Rate 79 Respiratory Rate Blood Pressure 123/67 138/72 Pulse Oximetry Oxygen Delivery Method Oxygen Delivery Method Room Air Narrative Exam Narrative: Alert elderly male lying in bed interactive but not remembering many things. Most of history is from . HEENT exam is unremarkable neck supple without adenopathy lungs are clear heart is regular rate and rhythm abdomen is soft positive bowel sounds nontender extremities without cyanosis clubbing edema has some bruising around occasional body small. All joints are moving well. Neurologic exam patient is confused. Not oriented. But nonfocal exam moving all 4 extremities reflexes are intact Objective Labs 08/15/24 11:38 08/15/24 11:38 Labs: Laboratory Results - last 24 hr 08/15/24 08/15/24 11:38 12:59 WBC 11.4 H RBC 5.13 Hgb 14.4 Hct 42.4 MCV 82.7 MCH 28.1 MCHC 34.0 RDW 14.8 Plt Count 173 Neut % (Auto) 60.4 Lymph % (Auto) 7.6 L [place] % (Auto) 30.4 H Eos % (Auto) 1.2 L Baso % (Auto) 0.4 Neut # (Auto) 6900 Lymph # (Auto) 900 L [place] # (Auto) 3500 H Eos # (Auto) 100 Baso # (Auto) 0 Sodium 137 Potassium 3.9 Chloride 108 H Carbon Dioxide 21 L BUN 16 Creatinine 0.93 Estimated GFR > 60 BUN/Creatinine Ratio 17.2 Glucose 109 Calcium 8.7 Total Bilirubin 2.7 H AST 34 ALT 53 H Alkaline Phosphatase 94 Total Creatine Kinase < 20 L Troponin I 0.016 Total Protein 6.6 Albumin 3.4 L Globulin 3.2 Albumin/Globulin Ratio 1.1 Lipase 105 Urine Color Yellow Urine Appearance Clear Urine pH 6.0 Ur Specific [place] 1.025 Urine Protein Trace H Urine Glucose (UA) Negative Urine Ketones Negative Urine Occult Blood Negative Urine Nitrate Negative Urine Bilirubin Negative Urine Urobilinogen 0.2 Ur Leukocyte Esterase Trace H Urine RBC 1-5/hpf D Urine WBC 1-5/hpf Ur Squamous Epith Cells 1-5 /hpf Urine Bacteria Few (2-10) H Ur Culture Indicated? Cult not indicated Vol Urine Centrifuged 10ml (spun) Assessment & Plan Assessment & Plan narrative: UTI. Probably secondary to kidney stone with some obstruction. On Levaquin. Will continue. Culture not done. Will culture. Continue to follow. Right-sided obstructing kidney stone. Apparently lithotripsy can not be done today. Plan for to do tomorrow. NPO after midnight As per urologist. Dementia. feels like there has been a significant change control analyst the last 3 months. There was some question whether he did not have memory changes seen in clinic 6 months ago which is less time he is seen but it was not dealt with at the time. They were not complaining of any issues. We discussed this. Will check B12 and TSH today. Consider MRI of head. Certainly nonfocal. Possible that he had some signs of this and COVID made worse. And he has been sick for 2 months. Will see how things go. I think this is probably been underestimated by the for some time. Follow-up in a.m.. Weakness. Patient has been sick and falling for med least 2 months. Was one- person assist when he went home although has struggled who keep him upright without falling he has had multiple falls. I do not think this is neurologic central I think he is weak and I think he does have some memory issues which is making insight difficult. Will have PT and OT see him. May need placement is currently in the emergency room and I am not sure if she is going to be able to care for him at home. She is working on getting care at home and will see how things go. History of sepsis. Does not seem to have this anymore. Does not febrile. Breathing comfortably. I do not think his pneumonias currently active. But we will see how things go. Hypertension. Stable. Continue usual meds CAD. Stable. No issue. GERD will continue PPI. DVT prophylaxis Lovenox Code status DNR. Disposition. Will see what PT and OT see tomorrow. Will see how his lithotripsy works. In how he does. I would be surprised if he would goes home tomorrow but will see how things go. Will discuss with care management tomorrow. Time-Based Coding :: [TOTAL MINUTES] spent with patient and on the chart (including review of chart, obtaining history, exam, reviewing outside data, placing orders, documenting exam and treatment plan, and counseling patient) on [DATE].
--- NOTE | 2024-08-15 18:47 | SUR.OPER ---
Lithotomy on padded OR bed, head on pillow, arms secured on padded arm boards at <90 degrees abduction. Legs secured in padded yellow fins stirrups.
[2024-08-15] MEDS: iopamidoL 30 ML VIAL 10 ML INTRAURETH (19:41)
--- NOTE | 2024-08-15 20:38 | PM.OP.1 ---
Procedure & Clinicians Procedure: Cystoscopy Right ureteroscopy Right retrograde ureteropyelogram Same procedure as scheduled: No (Unable to place right ureteral stent) Indications: 88 y/o M who returns to the ER by EMS for evaluation of repeated falls. His evaluation today was notable for a WBC of 11.4, sCr of 0.83, an unremarkable UA and a CT KUB that was notable for a 2.1cm right proximal ureterolith with resultant upstream severe hydroureteronephrosis. Of note, he also has several other small nephroliths within his right renal collecting system and a 1cm left lower pole calculus. Discussed that this is likely the etiology of his aforementioned pansensitive Pseudomonas Aeruginosa UCx and BCx's from earlier this month. Surgeon: Hank Arshad Click Yes if Unassisted: Yes Anesthesia Type: General Operative Notes Findings: Tight J-hooked of right ureteral stent, tear in right ureter encompassing 30% of ureteral circumference, unable to place right ureteral stent Closure Type: not applicable Specimen(s): none sent Estimated Blood Loss (mL): 2 Blood products transfused: none Procedure in detail: Patient was identified in the preoperative holding area and consent confirmed. He was then brought to the operating room where general anesthesia was induced.? He was then placed in the low lithotomy position. He was then prepped and draped in the usual sterile fashion. A surgical timeout was conducted and all were in agreement. Access to the bladder was obtained via a 21Fr cystoscope.? The right ureteral orifice was easily visualized and a 0.035 sensor tip ureteral guidewire was advanced through the 5Fr ureteral catheter and into the right distal ureter.? The ureteral guidewire was removed and a retrograde pyelogram was performed which noted moderate right hydroureter and a very large stone within the right proximal ureter.? Multiple attempts at advancing a sensor tip ureteral guidewire, straight and angled tip ureteral guidewire passed the stone and into the right renal collecting system were unsuccessful. The cystoscope was then removed and the semirigid ureteroscope was advanced alongside the ureteral guidewire and into the mid right ureter. Attempts at advancing the ureteroscope over the guidewire and passed the stone were also unsuccessful despite attempting for more than 30 minutes, a tear in the ureter at the level of the stone was noted to encompass roughly 30% of the ureteral circumference. The decision was then made to remove the ureteroscope. The bladder was then drained via the blind obturator.? Anesthesia was reversed, he was extubated in the OR and transferred to the PACU in stable condition for recovery. Complications: none Post-operative Condition: stable Disposition: Acute Care Plan for aftercare: Transfer back to Acute Care. Will need transferred to a facility with IR capabilities for attempts at a placement of a right nephroureteral stent, if not, at least a right percutaneous nephrostomy tube.
[2024-08-15] MEDS: ATORVASTATIN 20 MG TABLET 10 MG PO (21:38)
[2024-08-16] MEDS: SODIUM CHLORIDE 0.9% 1,000 ML 100 ML IV (00:55)
[2024-08-16 05:29] LABS: Add Manual Diff / Slide Review NO; Basophils Absolute Auto 0 /uL (0-100); Basophils Percent Auto 0.3 % (0-2); Eosinophils Absolute Auto 100 /uL (0-450); Hematocrit 37.8 % (41-53); Lymphocytes Absolute Auto 800 /uL (1100-4500); Lymphocytes Percent Auto 9.1 % (25-40); Mean Corpuscular HGB Conc 34.5 % (30-36); Mean Corpuscular Hemoglobin 28.5 PG (26-34); Mean Corpuscular Volume 82.8 fL (80-100); Monocytes Absolute Auto 2500 /uL (0-900); Monocytes Percent Auto 27.2 % (3-14); Neutrophils Absolute Auto 5700 /uL (1500-7000); Neutrophils Percent Auto 62.4 % (50-75); Platelet Count 166 X10^3/uL (150-400); Red Blood Cell Count 4.57 X10^6/uL (4.5-5.9); Red Cell Distribution Width 14.8 % (11.6-14.8); White Blood Cell Count 9.1 X10^3/uL (4.5-11.0)
[2024-08-16 05:33] LABS: Alanine Aminotransferase 39 IU/L (<50); Albumin 2.9 g/dL (3.5-5.0); Alkaline Phosphatase 80 U/L (38-126); Aspartate Aminotransferase 23 IU/L (17-59); BUN Creatinine Ratio 14.2 (6-22); Bilirubin Total 2.6 mg/dL (0.2-1.3); Blood Urea Nitrogen 17 mg/dL (9-20); Calcium 8.2 mg/dL (8.4-10.2); Carbon Dioxide 21 mmol/L (22-32); Chloride 107 mmol/L (98-107); Estimated Glomerular Filt Rate 59 mL/min (>60); Globulin 2.9 g/dL (1.7-4.1); Glucose 94 mg/dL (80-110); HEMOLYSIS < 15 (0-50); Potassium 4.4 mmol/L (3.4-5.1); Sodium 134 mmol/L (137-145); Total Protein 5.8 g/dL (6.3-8.2)
[2024-08-16 06:04] LABS: Thyroid Stimulating Hormone 4.35 uIU/mL (0.47-4.68)
[2024-08-16] MEDS: levoFLOXacin 250 MG TABLET 750 MG PO (06:09)
[2024-08-16 06:23] LABS: Vitamin B12 > 1000 pg/mL (239-931)
[2024-08-16 07:00] VITALS: BP 126/83; PULSE 84; RESP 21; TEMP 36.4; O2SAT 94
[2024-08-16] MEDS: ENOXAPARIN 40 MG/0.4 ML SYRINGE SUBCUT (09:22)
[2024-08-16] MEDS: PANTOPRAZOLE DR 40 MG TABLET PO (09:22)
[2024-08-16] MEDS: VALSARTAN 80 MG TABLET 40 MG PO (09:22)
[2024-08-16] MEDS: SODIUM CHLORIDE 0.9% FLUSH 10 ML IV (09:24)
--- NOTE | 2024-08-16 10:45 | PT.IIE ---
Current Diagnoses Calculus of ureter (08/15/24) Surgery Performed Operation Date: 08/15/24 19:15 Actual Procedures p Cystoscopy w/ Placement of Right Ureteral Stent(Right) - Hank Arshad DO Medical History (Last Reviewed 08/16/24 @ 12:18 by David Duke MD) CVA (cerebral vascular accident) Hyperlipidemia Pacemaker Physical Therapy Inpatient Evaluation/Re-Eval M1 PT/OT-IP Prior Functional Status Start: 08/16/24 12:47 Freq: NEEDED Status: Active Protocol: Document 08/16/24 10:45 AB (Rec: 08/16/24 12:57 AB [id number]) Medical Review Prior Functional Status Medical History Reviewed Yes Communication not verbalizing much today Mobility and Gait PLOF obtained from EMR: pt was modified independent with all mobilities and ambulation using a FWW; h/o frequent falls Social History Household Members spouse Living Arrangements House Number of Floors (Floors) One Floor Number of Stairs To Enter/Railing? 2 steps withotu rails to enter Home Environment Standard Height Toilet,Walk in Shower Home Equipment Front Wheel Walker,Shower Seat with Backrest,Grab Bars In Shower M2 PT-IP Current Condition Start: 08/16/24 12:47 Freq: NEEDED Status: Active Protocol: Document 08/16/24 10:45 AB (Rec: 08/16/24 12:57 AB [id number]) Physical Therapy Current Condition Current Condition Evaluation Date 08/16/24 Treatment Diagnosis UTI; s/p R ureterescopy; difficulty in walking Onset Date 08/15/24 M3 PT-IP Subjective Start: 08/16/24 12:47 Freq: NEEDED Status: Active Protocol: Document 08/16/24 10:45 AB (Rec: 08/16/24 12:57 AB [id number]) Subjective Physical Therapy Visit Type Type Initial Evaluation Visit Start Time 10:45 Visit Stop Time 11:30 Number of VOLUNTEER PATIENT REPRESENTATIVE Visits 0 M4 PT-IP Mobility and Gait Start: 08/16/24 12:47 Freq: NEEDED Status: Active Protocol: Document 08/16/24 10:45 AB (Rec: 08/16/24 12:57 AB [id number]) PT-Bed Mobility Assessment Sit to Supine Sit to Supine Moderate Assistance PT-Transfer Assessment Sit to and From Stand Sit to and from Stand Maximum Assistance,Use of Upper Extremities Equipment Transfer Assistive Device Gait Belt,Front Wheeled Walker Orthotic/Prosthetic Devices or Brace: No Transfers Transfer Destination Chair Transfer Technique Stand Step Pivot Transfer Ability Level of Assist Maximum Assistance,1 Person Assistance,Use of Upper Extremities Comments Mobility Comments pt sitting on the chair and nurse and NAC in room. informed nurse to change bedrest order and PT will assist pt. pt not verbalizing much but nodded when asked if he wants to go back to bed. pt at RA and O2 sat 87-88%. supplemental O2 provided 2L/ min: O2 sat increased 90-92% in 1-2 minutes. pt completed sit to stand max A x and max cues and step transfer to bed max A and max cues using FWW. pt completed sit to supine mod A and max cues. positioned pt in bed. call light and table placed within reach. PT-Balance Assessment Sitting Balance and Reactions Static Sitting Balance Ability Good Dynamic Sitting Balance Ability Fair Standing Balance and Reactions Static Standing Balance Ability Poor Dynamic Standing Balance Ability Poor Device Used FWW M5 PT-IP Objective Assessments Start: 08/16/24 12:47 Freq: NEEDED Status: Active Protocol: Document 08/16/24 10:45 AB (Rec: 08/16/24 12:57 AB [id number]) Orientation Orientation/Cognition Level of Alertness Confusional State Language Function Ability Hard of Hearing Safety Awareness Decreased Safety Awareness Muscle Tone Muscle Tone WNL Yes M6 PT-IP Treatment Start: 08/16/24 12:47 Freq: NEEDED Status: Active Protocol: Document 08/16/24 10:45 AB (Rec: 08/16/24 12:57 AB [id number]) Physical Therapy Treatment Education Education Provided Safety M7 PT-IP Assessment and Plan Start: 08/16/24 12:47 Freq: NEEDED Status: Active Protocol: Document 08/16/24 10:45 AB (Rec: 08/16/24 12:57 AB [id number]) PT Summary Assessment and Plan Potential Rehabilitation Potential Fair Summary Impairments Pain,ROM,Strength,Balance, Coordination,Sensation,Tone, Cognition,Bed Mobility, Transfers,Gait,Activity Tolerance Assessment Summary pt is an 88 y/o M who was just admitted here in the hospital s/p fall and Covid 08/06-08/12. pt not readmitted s/p fall and UTI. pt has h/o frequent falls. pt requiring max A with mobility and will require 24/7 assist. pt will benefit from SNF rehab. Goals Bed Mobility Goal Standby Assistance Transfer Goal Standby Assistance,Front Wheeled Walker Gait Goal Standby Assistance,Front Wheel Walker Gait Distance 50 Other Goals improve bed mobility, transfers, ambulation using FWW mod I ~ 150 ft up/down 2 steps without rails SBA Days to Meet Goals 10 Frequency of Treatment Frequency Of Treatment Once a Day Treatment Plan Physical Therapy Treatment Plan Bed Mobility Training,Transfer Training,Gait Training, Therapeutic Exercise,Balance Retraining,Discharge Planning, Hot or Cold Pack,Neuromuscular Re-ed,Coordination Retraining ,Manual Therapy Precautions Other Precautions falls, Covid droplet precautions Recommendations To Nursing Amount of Assist Needed 2 Person Assist Discharge Recommendations PT Discharge Recommendations SNF Rehab Transportation Needs at Discharge Wheelchair/Cabulance
--- NOTE | 2024-08-16 11:03 | PM.CN.IH.1 ---
History of Present Illness Consult details Date Patient Seen: 08/16/24 Time Patient Seen: 11:04 Chief complaint: repeated falls Narrative: 88 y/o M who returned to the ER by EMS for evaluation of repeated falls on 15 Aug 2024. His evaluation was notable for a WBC of 11.4, sCr of 0.83, an unremarkable UA and a CT KUB that was notable for a 2.1cm right proximal ureterolith with resultant upstream severe hydroureteronephrosis. Of note, he also has several other small nephroliths within his right renal collecting system and a 1cm left lower pole calculus. Discussed that this is likely the etiology of his aforementioned pansensitive Pseudomonas Aeruginosa UCx and BCx's from earlier this month. He is now POD 1 s/p a cystoscopy, right ureteroscopy and inability to place a right ureteral stent. He has minimal pain and discomfort at this time, albeit confused regarding steps moving forward. Meds Home Medications and Allergies Home Medications Medication Instructions Recorded Confirmed Type atorvastatin 10 mg tablet 10 mg PO QPM 05/28/18 08/15/24 History pantoprazole 40 mg tablet,delayed 40 mg PO DAILY 04/19/23 08/15/24 History release valsartan 40 mg tablet 40 mg PO DAILY 04/19/23 08/15/24 History ascorbic acid (vitamin C) 500 mg 500 mg PO DAILY 07/14/24 08/15/24 History tablet (Vitamin C) aspirin 81 mg capsule 81 mg PO BEDTIME 07/14/24 08/15/24 History cyanocobalamin (vitamin B-12) 3,000 mcg PO DAILY 07/14/24 08/15/24 History 3,000 mcg capsule magnesium citrate 100 mg capsule 600 mg PO DAILY 07/14/24 08/15/24 History multivit with minerals-iron 18 1 tab PO DAILY 07/14/24 08/15/24 History mg-folic ac 400 mcg-vit K 25 mcg tablet (Adults Multivitamin) acetaminophen 325 mg tablet 650 mg (2 x 325 mg) PO Q6H PRN 07/16/24 08/15/24 Rx Fever/Mild Pain (1-3) #30 tabs levofloxacin 750 mg tablet 750 mg PO Q48H 12 days #6 tabs 08/12/24 08/15/24 Rx Allergies Allergy/AdvReac Type Severity Reaction Status Date / Time morphine AdvReac Verified 08/15/24 10:02 Review of Systems Review of Systems Narrative: Unable to obtain secondary to confusion. Exam Vital Signs (past 8 hours): - 08/16/24 07:00 Temperature 97.6 F Pulse Rate 84 Respiratory Rate 21 Blood Pressure 126/83 Pulse Oximetry 94 Oxygen Flow Rate 0 Oxygen Delivery Method Nasal Cannula Oxygen Flow Rate 0 Narrative Exam Narrative: GEN: Alert and oriented X3. No acute distress. Well-nourished. EYES: PERRLA, EOMI. HENT: Moist mucus membranes, no scleral icterus, normal neck ROM. RESP: Unlabored breathing, equal rise and fall of chest bilaterally, no cyanosis appreciated. CV: No peripheral edema, unremarkable heart rate. ABD: Soft, non-tender, non-distended, no palpable masses. EXT: No edema, clubbing or cyanosis. SKIN: No rashes or lesions. NEURO: No focal neurologic deficits, CN II-XII grossly intact. PSYCH: Cooperative, appropriate mood and affect. Objective Labs 08/16/24 04:50 08/16/24 04:50 Labs: Laboratory Results - last 24 hr 08/15/24 08/15/24 08/16/24 11:38 12:59 04:50 WBC 11.4 H 9.1 RBC 5.13 4.57 Hgb 14.4 13.0 L Hct 42.4 37.8 L MCV 82.7 82.8 MCH 28.1 28.5 MCHC 34.0 34.5 RDW 14.8 14.8 Plt Count 173 166 Neut % (Auto) 60.4 62.4 Lymph % (Auto) 7.6 L 9.1 L [place] % (Auto) 30.4 H 27.2 H Eos % (Auto) 1.2 L 1.0 L Baso % (Auto) 0.4 0.3 Neut # (Auto) 6900 5700 Lymph # (Auto) 900 L 800 L [place] # (Auto) 3500 H 2500 H Eos # (Auto) 100 100 Baso # (Auto) 0 0 Sodium 137 134 L Potassium 3.9 4.4 Chloride 108 H 107 Carbon Dioxide 21 L 21 L BUN 16 17 Creatinine 0.93 1.20 Estimated GFR > 60 59 L BUN/Creatinine Ratio 17.2 14.2 Glucose 109 94 Calcium 8.7 8.2 L Total Bilirubin 2.7 H 2.6 H AST 34 23 ALT 53 H 39 Alkaline Phosphatase 94 80 Total Creatine Kinase < 20 L Troponin I 0.016 Total Protein 6.6 5.8 L Albumin 3.4 L 2.9 L Globulin 3.2 2.9 Albumin/Globulin Ratio 1.1 1.0 Lipase 105 Vitamin B12 > 1000 H TSH 4.35 Urine Color Yellow Urine Appearance Clear Urine pH 6.0 Ur Specific [place] 1.025 Urine Protein Trace H Urine Glucose (UA) Negative Urine Ketones Negative Urine Occult Blood Negative Urine Nitrate Negative Urine Bilirubin Negative Urine Urobilinogen 0.2 Ur Leukocyte Esterase Trace H Urine RBC 1-5/hpf D Urine WBC 1-5/hpf Ur Squamous Epith Cells 1-5 /hpf Urine Bacteria Few (2-10) H Ur Culture Indicated? Cult not indicated Vol Urine Centrifuged 10ml (spun) [facility] Medical History Pacemaker CVA (cerebral vascular accident) Hyperlipidemia Social History household members: spouse Tobacco & Substance Use Smoking Status: Never smoker alcohol intake: current Assessment & Plan Assessment and plan (1) Right ureteral calculus: Status: Acute Plan: 88 y/o M who returned to the ER by EMS for evaluation of repeated falls on 15 Aug 2024. His evaluation was notable for a WBC of 11.4, sCr of 0.83, an unremarkable UA and a CT KUB that was notable for a 2.1cm right proximal ureterolith with resultant upstream severe hydroureteronephrosis. Of note, he also has several other small nephroliths within his right renal collecting system and a 1cm left lower pole calculus. Discussed that this is likely the etiology of his aforementioned pansensitive Pseudomonas Aeruginosa UCx and BCx's from earlier this month. He is now POD 1 s/p a cystoscopy, right ureteroscopy and inability to place a right ureteral stent. He has minimal pain and discomfort at this time, albeit confused regarding steps moving forward. - Discussed at length with his that he needs to be transferred to a facility w/ IR capability - Will need IR to place a right nephroureteral stent to alleviate his right ureteral obstruction as well as allow for healing of the tear within his right ureter from attempting right ureteral stent placement in retrograde fashion that was unsuccessful on 15 Aug 2024. - If unable to place right nephroureteral stent, will need at least a right percutaneous nephrostomy tube placement - Appreciate assistance of hospitalist team with this complicated patient - Antibiotics per primary team Time-Based Coding :: [TOTAL MINUTES] spent with patient and on the chart (including review of chart, obtaining history, exam, reviewing outside data, placing orders, documenting exam and treatment plan, and counseling patient) on [DATE]. PROFEE Charge Codes Inpatient or Observation consultation: [id number]
--- NOTE | 2024-08-16 12:02 | PM.DS.IH.1 ---
History of Present Illness History of Present Illness Date Patient Seen: 08/16/24 Time Patient Seen: 10:30 Date of Onset of Symptoms: 08/16/24 Chief complaint: repeated falls Narrative: Patient is a 88-year-old male usually followed by Jorge GREWAL who was new to me with history of recent COVID and sepsis discharged on Monday of this week. Who has a history of weakness. Apparently had spent 21 days in [facility] in [place] contracted COVID and then came here. Apparently he was admitted 2 days prior to his time at [facility] for weakness. Patient has a history of kidney stones. Which has been present for some time. Right side. Apparently he really has not recovered since he was discharged from the hospital. He has been weak and not doing well. has felt like he was not well. Did not seem like he was very strong when he came home from the hospital. Patient had 1 person assist while he was in the hospital and apparently did not do well. He has had no fevers no chills no nausea no vomiting no diarrhea. He is incontinent of urine and has been since he came from the [place] [facility]. No other significant changes or complaints. Apparently mental status has been down since he contracted COVID according to the . There was no diagnosis of mental status changes in the chart. No other changes. Discharge Providers Provider Date of admission: 08/15/24 16:58 Discharge Date: 08/16/24 Primary care physician: CARMINA Perez Consults: 08/15/24 17:50 Consult to Discharge Planning Routine Comment: Consult to Occupational Therapy Evaluate & Treat Comment: Physician Instructions: Evaluate and treat Consult to Physical Therapy Evaluate & Treat Comment: Physician Instructions: Evaluate and Treat Discharge provider: David Duke MD Summary Hospital Course Discharge Diagnosis: 1. Persistent Pseudomonas urinary tract infection due to obstructing right ureteral stone hydronephrosis and hydroureter.. 2. Right-sided obstructing kidney stone. 3. Weakness. 4. Dementia. 5. Hypertension. 6. CAD. 7. GERD Hospital Course: The patient was admitted and placed on broad-spectrum antibiotics. Urology was consulted and he underwent attempted ureteral stenting which was unfortunately unsuccessful due to localized swelling resulting from the infection as well as anatomical distortion with AJ event in the proximal ureter. The patient had been admitted to this hospital from 08/07 2024 to for pansensitive Pseudomonas aeruginosa bacteremia and urinary tract infection, culturing the same Pseudomonas organism in both blood and urine at that time. Urine culture on this admission is pending. At this point it was apparent the patient would require tertiary level care for interventional radiologic management. The patient was agreeable to transfer to a tertiary care facility and arrangements were made as such. The patient and his both consented to this. The patient has cognitive impairment that he continues to experience following COVID several months ago. He was continued on levofloxacin during hospitalization as well as his usual medications. No other issues arose. Status at Discharge Cognitive/behavioral status at discharge: at baseline, confused Functional status at discharge: uses cane/walker Overall status at discharge: patient is not back to baseline Time Spent with Patient Time spent: Greater than 30 minutes Exam Vital Signs (past 8 hours): - 08/16/24 07:00 Temperature 97.6 F Pulse Rate 84 Respiratory Rate 21 Blood Pressure 126/83 Pulse Oximetry 94 Oxygen Flow Rate 0 Oxygen Delivery Method Nasal Cannula Oxygen Flow Rate 0 Narrative Exam Narrative: GENERAL: This is a well-nourished, well-developed patient, in no apparent distress. HEAD: Atraumatic. Normocephalic. No temporal or scalp tenderness. EYES: Pupils equal round and reactive. Extraocular motions intact. No scleral icterus. No injection or drainage. ENT: Mucous membranes pink and moist. NECK: Trachea midline. No JVD, bruits or lymphadenopathy. Supple, nontender, no meningeal signs. CARDIOVASCULAR: Regular rate and rhythm without murmurs, gallops, or rubs. RESPIRATORY: Clear to auscultation. GASTROINTESTINAL: Abdomen soft, non-tender, nondistended. EXTREMITIES: No clubbing, cyanosis, or edema. BACK: Right flank tenderness to percussion. NEUROLOGIC: Alert, oriented, speech fluent, full upper and lower motor strength, no focal deficits evident. DERMATOLOGIC: No rashes or skin lesions. Objective Imaging CT scan - abdomen: Radiologist's impression: PROCEDURE: CT KIDNEY URETER BLADDER (KUB) INDICATIONS: Right sided calculi seen on CT L-spine TECHNIQUE: Axial sections were acquired from the lung bases to the pubic symphysis. Coronal and sagittal reformats were performed. For radiation dose reduction, the following was used: automated exposure control, adjustment of mA and/or kV according to patient size. COMPARISON: None. FINDINGS: Image quality: Diagnostic. Lower Chest: Spoke the mild patchy right lower lobe opacities. URINARY: Right Kidney: Moderate hydronephrosis. Nonobstructing calculi are present the largest measuring a mildly 4 mm. 10.2 cm simple cyst. Right Ureter: Proximal hydroureter are within the 1.1 cm calcification Hounsfield units 1329. There Left Kidney: Multiple nonobstructive renal with the largest measuring 1 cm with Hounsfield units measuring 1162. Left Ureter: No hydroureter. Bladder: Normal wall thickness. No stones. ABDOMEN: Liver: No contour-deforming solid mass. Gallbladder: No radiopaque gallstones or wall thickening. Biliary ducts: No biliary dilation. Pancreas: No ductal dilation. Spleen: Size is within normal limits. Adrenal Glands: No adrenal nodules. Stomach and Bowel: Normal colonic caliber, without significant wall thickening. Moderate colonic stool. Peritoneum: No abnormal intraperitoneal fluid. No free air. Ventral Wall: No hernia. Abdominal Nodes: No enlarged retroperitoneal or mesenteric lymph nodes. Vessels: Aorta and inferior vena cava are normal in size. PELVIS: Pelvic Organs: Unremarkable. Pelvic Nodes: Unremarkable. Miscellaneous: No inguinal hernias are seen. Bones: Unremarkable. IMPRESSION: Right hydronephrosis and proximal hydroureter secondary to stone. Labs 08/16/24 04:50 08/16/24 04:50 Labs: Laboratory Results - last 24 hr 08/15/24 08/15/24 08/16/24 11:38 12:59 04:50 WBC 11.4 H 9.1 RBC 5.13 4.57 Hgb 14.4 13.0 L Hct 42.4 37.8 L MCV 82.7 82.8 MCH 28.1 28.5 MCHC 34.0 34.5 RDW 14.8 14.8 Plt Count 173 166 Neut % (Auto) 60.4 62.4 Lymph % (Auto) 7.6 L 9.1 L [place] % (Auto) 30.4 H 27.2 H Eos % (Auto) 1.2 L 1.0 L Baso % (Auto) 0.4 0.3 Neut # (Auto) 6900 5700 Lymph # (Auto) 900 L 800 L [place] # (Auto) 3500 H 2500 H Eos # (Auto) 100 100 Baso # (Auto) 0 0 Sodium 137 134 L Potassium 3.9 4.4 Chloride 108 H 107 Carbon Dioxide 21 L 21 L BUN 16 17 Creatinine 0.93 1.20 Estimated GFR > 60 59 L BUN/Creatinine Ratio 17.2 14.2 Glucose 109 94 Calcium 8.7 8.2 L Total Bilirubin 2.7 H 2.6 H AST 34 23 ALT 53 H 39 Alkaline Phosphatase 94 80 Total Creatine Kinase < 20 L Troponin I 0.016 Total Protein 6.6 5.8 L Albumin 3.4 L 2.9 L Globulin 3.2 2.9 Albumin/Globulin Ratio 1.1 1.0 Lipase 105 Vitamin B12 > 1000 H TSH 4.35 Urine Color Yellow Urine Appearance Clear Urine pH 6.0 Ur Specific [place] 1.025 Urine Protein Trace H Urine Glucose (UA) Negative Urine Ketones Negative Urine Occult Blood Negative Urine Nitrate Negative Urine Bilirubin Negative Urine Urobilinogen 0.2 Ur Leukocyte Esterase Trace H Urine RBC 1-5/hpf D Urine WBC 1-5/hpf Ur Squamous Epith Cells 1-5 /hpf Urine Bacteria Few (2-10) H Ur Culture Indicated? Cult not indicated Vol Urine Centrifuged 10ml (spun) PFSH Medical History CVA (cerebral vascular accident) Hyperlipidemia Pacemaker Social History household members: spouse Smoking Status: Never smoker alcohol intake: current Discharge Plan Discharge Plan Patient Disposition: [facility] Under care of provider: Dr. Nubia Vences of hospitalist medicine at [facility] Discharge Data Primary Care Provider: Kelle Ordonez VTE Deep Vein Thrombosis/Pulmonary Embolism Present on Admission: No MIPS - Admit I confirm the patient?s Advance Care Plan is present, Code status is documented, Surrogate decision maker is in patient?s record [If Yes, STOP here]: Yes MIPS - Meds 'Current medications' to include all prescriptions, abof-dbs-abebroe products, herbals, cannabis/cannabidiol products, and vitamin/mineral/dietary (nutritional) supplements. I have utilized all available resources to obtain, update, or review the patient?s current medications. [If Yes, STOP here]: Yes PROFEE Charge Codes Discharge inpatient/observation: [id number]
--- NOTE | 2024-08-16 13:59 | OT.IP.EVAL ---
Current Diagnoses Calculus of ureter (08/15/24) Surgery Performed Operation Date: 08/15/24 19:15 Actual Procedures p Cystoscopy w/ Placement of Right Ureteral Stent(Right) - Hank Arshad DO Past Medical History (Last Reviewed 08/16/24 @ 12:18 by David Duke MD) CVA (cerebral vascular accident) Hyperlipidemia Pacemaker Occupational Therapy Inpatient Evaluation/Re-Eval M1 PT/OT-IP Prior Functional Status Start: 08/16/24 12:47 Freq: NEEDED Status: Active Protocol: Document 08/16/24 13:37 SONI (Rec: 08/16/24 13:59 ADRIHIESTHER [id number]) Medical Review Prior Functional Status Medical History Reviewed Yes Diet/Fluid Consistency NPO Communication pt slow to respond today Mobility and Gait PLOF obtained from EMR: pt was modified independent with all mobilities and ambulation using a FWW; h/o frequent falls. pt reports his spouse performs driving, cleaning, and cooking. Activities of Daily Living and IADL's pt reports he had some assistance with his shower from his spouse, unable to say how much assistance Social History Household Members spouse Living Arrangements House Number of Floors (Floors) One Floor Number of Stairs To Enter/Railing? 2 steps withotu rails to enter Home Environment Standard Height Toilet,Walk in Shower Home Equipment Front Wheel Walker,Shower Seat with Backrest,Grab Bars In Shower M2 OT-IP Current Condition Start: 08/16/24 13:37 Freq: Status: Active Protocol: Document 08/16/24 13:37 SONI (Rec: 08/16/24 13:59 ADRIHIESTHER [id number]) Occupational Therapy Current Condition Current Condition Evaluation Date 08/16/24 Treatment Diagnosis s/p falls, weakness Diagnosis Onset Date 08/15/24 M3 OT- IP Subjective and Pain Start: 08/16/24 13:37 Freq: Status: Active Protocol: Document 08/16/24 13:37 SONI (Rec: 08/16/24 13:59 ADRIHIESTHER [id number]) OT- Subjective Occupational Therapy Visit Type Type Initial Evaluation Visit Start Time 08:40 Visit Stop Time 09:30 Notes Pt reclined in bed. Pt agreeable to participating in eval. Occupational Therapy Visit Comments Patient Comments to go home OT Pain Assessment Pain When Pain Assessed At Rest Pain Present Pain Present Pain Reported Location generalized Scale Used pt unable to rate M4 OT- IP ADL's Start: 08/16/24 13:37 Freq: Status: Active Protocol: Document 08/16/24 13:37 [facility] (Rec: 08/16/24 13:59 [facility] [id number]) OT [id number] Comments OT Self-Feeding Comments pt currently NPO OT ADL-Grooming General Evaluation Grooming Ability Standby Assistance Areas Needing Assistance Retrieving/Set-up of Grooming Items Comments OT Grooming Comments pt performs while sitting EOB, likely will need increased assistance when performing in standing. OT ADL-Oral Care General Eval Oral Care Ability Standby Assistance Comments Oral Care Comments pt used mouthwash to rinse his mouth. pt did not follow commands and swallowed mouthwash rather than spitting in basin. OT ADL-Dressing General Eval Lower Body Dressing Ability Total Assistance Areas Needing Assistance Retrieving/Set-up of Clothing, Underpants/Brief,Socks Comments OT Dressing Comments pt needed total A for donning B socks. pt attempted to perform but was unable to reach his feet while EOB. Pt required assistance to manage gown as well. OT ADL-Toileting General Evaluation Toileting Ability Total Assistance Areas Needing Assistance Empty Catheter or Colostomy OT ADL-Bathing Comments OT Bathing Comments declined at eval M5 OT- IP IADL's Start: 08/16/24 13:37 Freq: Status: Active Protocol: Document 08/16/24 13:37 [facility] (Rec: 08/16/24 13:59 [facility] [id number]) OT-Instrumental Activities of Daily Living Home Safety Awareness Awareness of Need for Assistance at Home Decreased Awareness Ability to Problem Solve Emergency Unable to Problem Solve Situations Medication Management Medication Management Caregiver Provides Supervision Medication Management Comments OT with concerns for pts ability to perform Money Management Money Management Caregiver Provides Supervision Money Management Comments OT with concerns for pts ability to perform Meal Preparation Meal Preparation Caregiver Provides Supervision Meal Preparation Comments OT with concerns for pts ability to perform Used Car Sales Supervisor Used Car Sales Supervisor Caregiver Provides Assist Used Car Sales Supervisor Comments OT with concerns for pts ability to perform Driving Driving Caregiver Provides Assist Driving Comments pt reports he does not perform M6 OT- IP Functional Cognition Start: 08/16/24 13:37 Freq: Status: Active Protocol: Document 08/16/24 13:37 [facility] (Rec: 08/16/24 13:59 [facility] [id number]) Cognitive Factors Limiting Selfcare Function Cognitive Ability Level of Alertness Confusional State Patient Orientation Name,Birthday Attention Span Ability Capable of Focused Attention, Unable to Sustain Attention Ability to Follow Commands Able to Follow One Step Commands,Able to Follow One Step Commands with Increased Time,Able to Follow One Step Commands with Repetition Memory Description Short Term Impaired,Working Impaired Safety Awareness Underestimates Need for Assistance Problem Solving Ability Unable to Identify Errors, Needs Assist to Identify Solutions Executive Function Ability Unable to Filter Distractions, Unable to Make Plans,Unable to Organize Plans Cognitive Tests SLUMS , this score is indicative of dementia. Pt was able to correctly identify the triangle and which shape was largest. OT- Vision and Hearing OT- Hearing Assessment OT- Hearing Assessment Hearing Impaired OT- Vision Assessment Visual Acuity Glasses For Reading M7 OT- IP Mobility and Balance Start: 08/16/24 13:37 Freq: Status: Active Protocol: Document 08/16/24 13:37 [facility] (Rec: 08/16/24 13:59 [facility] [id number]) OT- Bed Mobility Assessment Supine to Sit Supine to Sit Assist Minimal Assistance,1 Person Assistance,Head of Bed Elevated,Bedrails Scooting Scooting Up and Down in Bed Standby Assistance,Bedrails OT-Transfer Assessment Sit to and From Stand Sit to and from Stand Moderate Assistance,1 Person Assistance,Use of Upper Extremities Transfers Transfer Ability Moderate Assistance,1 Person Assistance,Use of Upper Extremities Technique Transfer Destination Chair Transfer Technique Stand Step Pivot Devices Transfer Assistive Devices Gait Belt,Front Wheeled Walker Comments Mobility Comments Pt was 98% on room air while supine and HR 89, upon sitting EOB pt was 94% on room air nd HR was 90. Pt's vitals were monitored for remainder of eval with no significant change. Pt initially declined getting up to chair, but was persuade when OT explained it would help his strength if he did not lie down all day. Pt requires vcs to step back until he feels chair behind his legs. Pt does not reach back for chair to lower into sitting. Requires vcs and education for improved safety. OT- Balance Assessment Sitting Balance and Reactions Static Sitting Balance Ability Good Dynamic Sitting Balance Ability Fair Standing Balance and Reactions Static Standing Balance Ability Fair Dynamic Standing Balance Ability Poor M8 OT- IP Objective Assessments Start: 08/16/24 13:37 Freq: Status: Active Protocol: Document 08/16/24 13:37 SONI (Rec: 08/16/24 13:59 [facility] [id number]) OT Gross Range of Motion Upper Extremity Range of Motion ROM Impairments B shoulders limited to approximately 90 OT Strength Hand Salesperson Corsets Strength Hand Dominance Right Comments Strength Comments pt unable to follow commands for accurate MMT assessment OT-Muscle Tone Assessment Muscle Tone WNL Yes M9 OT- IP Assessment and Plan Start: 08/16/24 13:37 Freq: Status: Active Protocol: Document 08/16/24 13:37 SONI (Rec: 08/16/24 13:59 [facility] [id number]) OT Summary Assessment and Plan Potential Rehabilitation Potential Fair Analytic Complexity at Evaluation Moderate Summary OT Impairments Pain,Range of Motion,Strength, Balance,Functional Cognition, Functional Mobility,Grooming, Dressing,Toileting,Bathing, Toilet Transfers,Shower Transfers,Activity Tolerance Progress Towards Goals Slow Progress due to Pain,Slow Progress due to Medical Issues,Slow Progress due to Activity Tolerance,Slow Progress due to Cognition Assessment Summary Pt is an 88 yo M who was admitted to the hospital s/p fall and Covid 08/06-08/12. Pt has a h/o recent and frequent falls. Pt required mod A for functional mobility, setup for EOB grooming, and total A for dressing. Pt scored a 2/30 on SLUMs, his cognition will be a challenge during his treatment and recovery due to poor safety awareness. Pt demonstrates decreased BADLs, activity intolerance, and generalized weakness. Pt is a Mod complexity eval and would benefit from skilled OT services to address deficits. Pt would benefit from SNF. Pt is not interested in SNF, however, OT strongly recommends this in order to allow pt time to become stronger and hopefully break the cycle of recurrent falls. Goals Grooming Goal Independent Dressing Goal Minimal Assistance Toileting Goal Contact Guard Assistance Bathing Goal Contact Guard Assistance Toilet Transfer Goal Contact Guard Assistance Shower Transfer Goal Contact Guard Assistance Days to Meet Goals 20 Frequency of Treatment Other frequency 5x/wk Treatment Plan OT Treatment Plan ADL Training,Functional Cognition Training,Functional Mobility,Therapeutic Exercises ,Patient/Family Education, Discharge Planning Discharge Recommendations OT Discharge Recommendations SNF Rehab Other Discharge Recommendations If SNF not an option, home with 23/01 assist and HH may be a reasonable alternative. Transportation Needs at Discharge Wheelchair/Cabulance
--- NOTE | 2024-08-16 15:51 | CM.DANOTE ---
DCP Assessment Note: Pt is a 88yo male, resident [facility], is admitted for UTI, right-sided obstructing kidney stone, weakness, dementia. Pt lives in a house with his , Gris. Pt's Primary Care Provider is Dr. Kelle Ordonez, [employer] and insurance is [employer]. Reviewed chart and discussed with multidisciplinary team pt's medical status and initial discharge needs. Per PT/OT, SNF rehab is being recommended at this time due to recurring falls, no 23/01 care for recovery (only at home) and confusion. Per MD, pt being transferred to [facility] for higher level of care. Visiting [place] sales representative sales manager called this DCP and notified that they are aware of pt's admission and will cancel referral for their services initiated at previous admission. Pt was supposed to start care with them today, 08/16. Plan: Pt to transfer to [facility] for higher level of care. Nanci Hood [employer] PAYABLE ASSOCIATE Discharge Planning/Care Management CM Discharge Assessment Start: 08/16/24 15:49 Freq: Status: Active Protocol: Document 08/16/24 15:49 MW (Rec: 08/16/24 15:50 MW [id number]) Discharge Planning Assessment Assigned Design Specialist CHERRI Christine DPOA/Assigned Designee Name Gris, Spouse Contact Information [phone] Advance Directives? Yes Advance Directives on File Yes History Provided By Patient,Family Member,Medical Record Has Patient been admitted in last 30 Yes days? Comment 07/14/2024-07/16/2024 08/06/2024-08/12/2024 Prior Living Arrangements House Household Members spouse Type of transporation used prior to Relies on Others admit Independent with ADL's No Is patient alert and oriented? No Patient/Family Preference Nursing Home Facility Discharge Plan Transfer to Higher Level of Care If patient plan is home with home health No : Has signed face to face form been completed? If patient plan is SNF: Has PASSR been No completed? Review Status In Process Please Provide Date Initial DC 08/16/24 Assessment Was Performed Next Review Type Continued Stay Review
[2024-08-16] MEDS: OXYCODONE IR 5 MG TABLET PO (17:17)
[2024-08-16] MEDS: ACETAMINOPHEN 325 MG TABLET 650 MG PO (18:35)
--- NOTE | 2024-08-16 19:33 | PC.NURSE ---
Day shift Transfer note: Pt left facility via ambulance. Pt alert and oriented x 1, cooperative. Report called and given to Jelani CONTI at [facility].
== END 2024-08-16 19:35 | disposition short-term general hospital (02) | DRG 690 ==
LOC: ED 16:50 → AC 17:04
PROVIDERS: Urology; Admitting Provider Family Medicine; Emergency Provider Emergency Medicine; PCP Internal Medicine; Referring Provider Emergency Medicine; Visit Provider Internal Medicine
PROC: 0TJ98ZZ Inspection of Ureter, Via Natural or Artificial Opening Endoscopic (ICD-10-PCS; principal; 2024-08-15 19:15)
DX: N13.6 Pyonephrosis (principal); F03.90 Unspecified dementia, unspecified severity, without behavioral disturbance, psychotic disturbance, mood disturbance, and anxiety; R53.1 Weakness; I10 Essential (primary) hypertension; I25.10 Atherosclerotic heart disease of native coronary artery without angina pectoris; K21.9 Gastro-esophageal reflux disease without esophagitis; R29.6 Repeated falls; S81.811A Laceration without foreign body, right lower leg, initial encounter; S30.1XXA Contusion of abdominal wall, initial encounter; E78.5 Hyperlipidemia, unspecified; B96.5 Pseudomonas (aeruginosa) (mallei) (pseudomallei) as the cause of diseases classified elsewhere; W18.30XA Fall on same level, unspecified, initial encounter; Z86.19 Personal history of other infectious and parasitic diseases; Z88.6 Allergy status to analgesic agent; Z87.442 Personal history of urinary calculi; Z66 Do not resuscitate; Z86.73 Personal history of transient ischemic attack (TIA), and cerebral infarction without residual deficits; Z95.0 Presence of cardiac pacemaker; Z86.16 Personal history of COVID-19
CPT/HCPCS: 36415; 51701; 52351; 70450; 71045; 72125; 72131; 72170; 74176; 76000; 80053; 81001; 82550; 82607; 83690; 84443; 84484; 85025; 87086; 93005; 93010; 96365; 96366; 97129; 97163; 97166; 97530; 97535; 99233; 99284; 99285; J1650; J1956; J2405; J2704; J3010; Q9967